=== PATIENT | male | born 1940 | race Caucasian/White ===

== ENCOUNTER → 2019-10-02 11:01 | Outpatient (BNVA) | payer MEDICARE, OTHER, SELFPAY | PROVIDERS: Family Provider Family Medicine; PCP Nurse Practitioner Family; Visit Provider Family Medicine | DX: N39.0 Urinary tract infection, site not specified (principal); E11.9 Type 2 diabetes mellitus without complications; I10 Essential (primary) hypertension | CPT/HCPCS: 36415; 83036 ==

== ENCOUNTER → 2019-12-17 12:50 | Outpatient (BNVA) | payer MEDICARE, OTHER, SELFPAY | PROVIDERS: Family Provider Family Medicine; PCP Family Medicine; Visit Provider Urology | DX: R33.9 Retention of urine, unspecified (principal); N35.913 Unspecified membranous urethral stricture, male; Z85.46 Personal history of malignant neoplasm of prostate; N39.490 Overflow incontinence; N39.0 Urinary tract infection, site not specified | CPT/HCPCS: 81001 ==

== ENCOUNTER → 2020-11-04 11:23 | Outpatient (BNVA) | payer MEDICARE, OTHER, SELFPAY | PROVIDERS: Family Provider Family Medicine; PCP Family Medicine; Visit Provider Family Medicine | DX: N39.0 Urinary tract infection, site not specified (principal); E11.9 Type 2 diabetes mellitus without complications | CPT/HCPCS: 83036 ==

== ENCOUNTER → 2020-12-16 16:27 | Outpatient (BNVA) | payer MEDICARE, OTHER, SELFPAY | PROVIDERS: Family Provider Family Medicine; PCP Family Medicine; Visit Provider Urology | DX: R33.9 Retention of urine, unspecified (principal); N35.913 Unspecified membranous urethral stricture, male; N39.0 Urinary tract infection, site not specified; Z85.46 Personal history of malignant neoplasm of prostate | CPT/HCPCS: 81003; 87086 ==

== ENCOUNTER → 2021-02-10 11:14 | Outpatient (BNVA) | payer MEDICARE, OTHER, SELFPAY | PROVIDERS: Family Provider Family Medicine; PCP Family Medicine; Visit Provider Family Medicine | DX: E11.9 Type 2 diabetes mellitus without complications (principal) | CPT/HCPCS: 83036 ==

== ENCOUNTER → 2021-05-31 09:06 | Outpatient (BNVA) | payer MEDICARE, OTHER, SELFPAY | PROVIDERS: Family Provider Family Medicine; PCP Family Medicine; Visit Provider Family Medicine | DX: E11.9 Type 2 diabetes mellitus without complications (principal) | CPT/HCPCS: 83036 ==

== ENCOUNTER → 2021-06-04 11:07 | Outpatient (BNVA) | payer MEDICARE, OTHER, SELFPAY | PROVIDERS: Family Provider Family Medicine; PCP Family Medicine; Visit Provider Surgery | DX: Z11.52 Encounter for screening for COVID-19 (principal) | CPT/HCPCS: 87635 ==

== ENCOUNTER 2021-06-09 07:39 | Day surgery (SDC) | payer MEDICARE, OTHER, SELFPAY ==
[2021-06-07 09:48] VITALS: BMI 26.9
[2021-06-09 08:38] VITALS: BP 191/77; PULSE 91; RESP 18; TEMP 36.1; O2SAT 100
[2021-06-09] MEDS: sodium chloride 0.9% 1,000 ML 30 ML IV (08:48)
--- NOTE | 2021-06-09 08:59 | ANES.PREANE2 ---
Documented by User: Miky Gutierrez Jr, CUSTOMER SUPPORT REPRESENTATIVE 06/09/21 09:05 Pre-Anesthetic Assessment Height/Weight: Height 1.78 m Weight 85.275 kg Temp Pulse Resp BP Pulse Ox 97 F L 91 18 191/77 100 06/09/21 08:38 06/09/21 08:38 06/09/21 08:38 06/09/21 08:38 06/09/21 08:38 Preop Diagnosis: diagnostic Operation Date: 06/09/21 09:00 Proposed Procedures p Colonoscopy 00217/K59.00(Not Applicable) - Cm Whitaker MD Familial anesthetic complications: none Was Beta Swathi taken within 24 hours: N/A Was Clonidine taken within 24 hours: N/A Last intake: Intake Last Liquid Date 06/08/21 Last Liquid Time 20:00 Last Solid Date 06/07/21 Last Solid Time 22:00 Last Intake: 22:00 Social No alcohol and No tobacco Exam alert, oriented x 3, clear to auscultation bilaterally and regular rate & rhythm Airway Submandibular: within normal limits Cervical ROM: within normal limits Mallampati: Class II Dentition: full Pulmonary None reported CV/HEM Hypertension None reported Hepatic None reported GI Gastroesophageal Reflux Disease (food related) Metabolic Diabetes Mellitus (Hga1c 6.7) Musc/skel Lower Back Pain and Osteoarthritis/DJD Neuropsych None reported Anesthetic Plan ASA status: 3 Anesthesia: MAC Risk of > 500 ml blood loss (7ml/kg in children): No Medications/Allergies Home Medications Medication Instructions Recorded Confirmed Last Taken Type insulin NPH isoph U-100 human 100 28 unit (0.28 mL) SUBCUT QAM #15 ml 11/04/20 06/09/21 06/08/21 Rx unit/mL (3 mL) subcutaneous pen (Novolin N Flexpen) metformin 1,000 mg tablet 1,000 mg PO DAILY #90 tab 11/04/20 06/09/21 06/07/21 Rx tamsulosin 0.4 mg capsule 0.4 mg PO BID #180 cap 11/04/20 06/09/21 06/07/21 Rx lisinopril 40 mg tablet 40 mg PO DAILY #90 tab 11/18/20 06/09/21 06/07/21 Rx docusate sodium 100 mg capsule 100 mg PO TID 12/16/20 06/09/21 06/07/21 History (Dulcolax Stool Softener (docusate)) multivitamin 1 tab PO DAILY 12/16/20 06/09/21 06/07/21 History ascorbic acid (vitamin C) 1,000 mg 1 g PO BID #180 tab 12/17/20 06/09/21 06/07/21 Rx tablet methenamine hippurate 1 gram tablet 1 g PO BID #240 tab 12/17/20 06/09/21 06/07/21 Rx glycerin (adult) (Fleet Glycerin 1 supp [place] DAILY PRN 04/21/21 06/07/21 Unknown History (Adult)) magnesium hydroxide 400 mg/5 mL 7.5 ml PO BID PRN 04/21/21 06/07/21 Unknown History oral suspension (Elder Milk of Magnesia) glyburide 5 mg tablet 10 mg PO TID #270 tab 05/10/21 06/09/21 06/08/21 Rx calcium carbonate 600 mg calcium 600 mg PO DAILY 05/24/21 06/09/21 06/07/21 History (1,500 mg) tablet (Calcium) cholecalciferol (vitamin D3) 625 50,000 unit PO DAILY cap 05/24/21 06/09/21 06/07/21 History mcg (25,000 unit) capsule lactulose 10 gram/15 mL (15 mL) 15 ml PO BID 7 Days #210 ml 05/24/21 06/09/21 06/07/21 Rx oral solution blood sugar diagnostic (OneTouch #200 ea 06/04/21 06/09/21 Unknown Rx Ultra Test) amlodipine 10 mg tablet 10 mg PO DAILY 06/09/21 06/09/21 06/07/21 History pioglitazone 45 mg tablet 45 mg PO DAILY 06/09/21 06/09/21 06/07/21 History Allergies Allergy/AdvReac Type Severity Reaction Status Date / Time amoxicillin Allergy unknown Verified 05/31/21 11:20 codeine Allergy unknown Verified 05/31/21 11:20 hydrocodone Allergy unknown Verified 05/31/21 11:20 Current Medications Generic Name Dose Route Start Last Admin Trade Name Freq PRN Reason Stop Dose Admin Sodium Chloride 1,000 mls @ 30 mls/hr 06/09/21 07:45 06/09/21 08:48 Sodium Chloride 0.9% IV 06/10/21 07:44 30 mls/hr .Q24H ROSAURA Administration PFSH Anesthesia Medical History History of prostate cancer Hypertension Incomplete bladder emptying Membranous urethral stricture Overflow incontinence Radiation proctitis Recurrent UTI Type 2 diabetes mellitus Surgical History (Updated 06/09/21 @ 10:24 by mC Whitaker MD) History of colon resection Previous back surgery Status post colonoscopy Status post colonoscopy with polypectomy (06/09/21) Family History Mother , 66 Cancer Uterine Father , 74 Cancer prostate Social History Quit status (tobacco): has quit using tobacco Year quit tobacco: 1981 Alcohol intake: never Marital status: Current occupational status: retired History of recent travel: No Data Anesthesia Cardiac Studies: No Data to Display
--- NOTE | 2021-06-09 09:06 | P.HP_ITS ---
Same Day Surgery H&P Indication for Procedure/HPI DATE OF PROCEDURE: June 09, 2021 CHIEF COMPLAINT/INDICATIONFOR SURGICAL PROCEDURE: Constipation-screening colonoscopy PREOP DIAGNOSIS: diagnostic PLANNED PROCEDURE: Operation Date: 06/09/21 09:00 Proposed Procedures p Colonoscopy 45747/K59.00(Not Applicable) - Cm Whitaker MD Medications/Allergies* Home Medications Medication Instructions Recorded Confirmed Type docusate sodium 100 mg capsule 100 mg PO TID 12/16/20 06/09/21 History (Dulcolax Stool Softener (docusate)) multivitamin 1 tab PO DAILY 12/16/20 06/09/21 History glycerin (adult) (Fleet Glycerin 1 supp [place] DAILY PRN 04/21/21 06/07/21 History (Adult)) magnesium hydroxide 400 mg/5 mL 7.5 ml PO BID PRN 04/21/21 06/07/21 History oral suspension (Elder Milk of Magnesia) calcium carbonate 600 mg calcium 600 mg PO DAILY 05/24/21 06/09/21 History (1,500 mg) tablet (Calcium) cholecalciferol (vitamin D3) 625 50,000 unit PO DAILY cap 05/24/21 06/09/21 History mcg (25,000 unit) capsule amlodipine 10 mg tablet 10 mg PO DAILY 06/09/21 06/09/21 History pioglitazone 45 mg tablet 45 mg PO DAILY 06/09/21 06/09/21 History Allergies/Adverse Reactions Allergy/AdvReac Type Severity Reaction Status Date / Time amoxicillin Allergy unknown Verified 05/31/21 11:20 codeine Allergy unknown Verified 05/31/21 11:20 hydrocodone Allergy unknown Verified 05/31/21 11:20 Current Medications: Generic Name Dose Route Start Last Admin Trade Name Freq PRN Reason Stop Dose Admin Sodium Chloride 1,000 mls @ 30 mls/hr 06/09/21 07:45 06/09/21 08:48 Sodium Chloride 0.9% IV 06/10/21 07:44 30 mls/hr .Q24H ROSAURA Administration Pertinent History/Comorbid Conditions* Medical History (Updated 05/24/21 @ 09:21 by Cm Whitaker MD) History of prostate cancer Hypertension Incomplete bladder emptying Membranous urethral stricture Overflow incontinence Radiation proctitis Recurrent UTI Type 2 diabetes mellitus Surgical History (Updated 05/24/21 @ 09:21 by Cm Whitaker MD) History of colon resection Previous back surgery Status post colonoscopy Family History (Updated 11/27/19 @ 16:26 by Kim Lemus RN) Father, 74 Mother, 66 Cancer Mother Uterine Father prostate Social History Quit status (tobacco): has quit using tobacco Year quit tobacco: 1981 Alcohol intake: never Marital status: Current occupational status: retired History of recent travel: No Pertinent Exam Findings alert, oriented x 3 and regular rate & rhythm Recommendations Surgery/Procedure today Coding Level of Care Code 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
[2021-06-09] MEDS: labetalol 5 mg/mL SDV 20mL 10 MG IVP (09:12)
[2021-06-09 10:23] VITALS: BP 162/72; PULSE 75; RESP 16; TEMP 36.3; O2SAT 98
--- NOTE | 2021-06-09 10:32 | ANE.PACU2 ---
Documented by User: Harshal De Dios CRNA 06/09/21 10:32 Inpatient post-anesthesia follow up: Airway intact: Yes Vital signs: Temperature 97.4 F Pulse Rate 75 Respiratory Rate 16 Blood Pressure 162/72 Pulse Oximetry 98 Oxygen Delivery Me thod Room Air Oxygen Flow Rate Fraction of Inspir ed Oxygen Hydration adequate: Yes Nausea and vomiting: No Pain level: 1 Mental status: Baseline
[2021-06-09 10:34] VITALS: BP 188/77; PULSE 78; RESP 18; O2SAT 94
== END 2021-06-09 10:47 | disposition home or self-care (01) ==
PROVIDERS: PCP Family Medicine; Visit Provider Surgery
PROC: 0DJD8ZZ Inspection of Lower Intestinal Tract, Via Natural or Artificial Opening Endoscopic (ICD-10-PCS; CPT 45378; principal; 2021-06-09 09:00)
DX: K59.00 Constipation, unspecified (principal); K57.30 Diverticulosis of large intestine without perforation or abscess without bleeding; K62.4 Stenosis of anus and rectum; D12.5 Benign neoplasm of sigmoid colon; D12.3 Benign neoplasm of transverse colon; I10 Essential (primary) hypertension; K21.9 Gastro-esophageal reflux disease without esophagitis; E11.9 Type 2 diabetes mellitus without complications; M19.90 Unspecified osteoarthritis, unspecified site; Z79.4 Long term (current) use of insulin; Z79.84 Long term (current) use of oral hypoglycemic drugs; Z85.46 Personal history of malignant neoplasm of prostate; Z90.49 Acquired absence of other specified parts of digestive tract; Z87.891 Personal history of nicotine dependence
CPT/HCPCS: 45381; 45385; 88305; J2704; J3490; J7030

== ENCOUNTER 2021-06-25 11:32 | Outpatient (CLI) | payer MEDICARE, OTHER, SELFPAY ==
[2021-06-25 13:14] LABS: Blood Urea Nitrogen 25 mg/dL (8-23)
[2021-06-25] MEDS: iohexol 300 mg/mL 50 mL Btl PO (13:17)
[2021-06-25] MEDS: iohexol 300 mg/mL 100 mL Btl IV (13:17)
--- NOTE | 2021-06-25 13:30 | CT_ITS ---
WS: [id number] CT ABDOMEN PELVIS TECHNIQUE: Contrast-enhanced CT of the abdomen and pelvis with coronal and sagittal reformatted image s. CLINICAL INFORMATION: K56.699 - Other intestinal obstruction unspecified as to ... COMPARISON: CT DLP: 1286.[address] scans at [facility] use at least one of these dose optimization techniques: automated e xposure control; mA and/or kV adjustment per patient size (includes targeted exams where dose is matc hed to clinical indication); or iterative reconstruction. FINDINGS: Noncontrast liver is normal. Normal spleen. Moderate esophageal hiatal hernia progressed since 2011. Lung bases are well aerated. Slight atelectasis in the lung bases. Fatty atrophy of the pancreas. Mino ateral adrenal nodules likely adenomas measuring 2.1 cm LEFT and 1.5 cm RIGHT. These have increased i n size compared to 2011. Normal renal parenchymal enhancement. Mild bilateral renal cortical atrophy. No hydronephrosis in eit her kidney. Normal caliber abdominal aorta. Aortic calcification. Enlarged heterogeneously enhancing prostate measuring 5.1 CM. Recommend correlation PSA. Mild bladder wall thickening likely due to blad justin outlet obstruction. No evidence of high-grade small or large bowel obstruction. Patulous dilated RIGHT colon with constip ation. Mild wall thickening. Small amount of fluid within the RIGHT pericolic gutter. Transition to n ormal-caliber bowel at the hepatic flexure. Fecalization of the terminal ileum. Mild thickening of th e terminal ileum with a small amount of associated fluid. Mild circumferential thickening of the distal sigmoid colon and rectum. Recommend correlation for pro ctitis. Small fat-containing umbilical hernia. Hypertrophic changes lumbar spine. Stable sclerotic foci invol ving the LEFT ilium, and RIGHT acetabulum. CT/CT abdomen pelvis w con* [id number] IMPRESSION: 1. Mild diffuse circumferential thickening of the distal most sigmoid colon an d rectum compatible with proctitis. Recommend correlation for radiation proctit is considering prostate cancer history. 2. Enlarged prostate measuring 5.1 CM. Recommend correlation PSA. Evidence of mild bladder outlet obstruction. 3. Patulous RIGHT colon with wall thickening and mild surrounding induration. Small amount of fluid in RIGHT pericolic gutter. Recommend correlation for mild colitis. Some this may be due to recent colonoscopy changes. 4. Caliber change at the hepatic flexure with normal caliber transverse colon. 5. Fecalization of the terminal ileum. 6. Moderate esophageal hiatal hernia progressed compared to 2011. 7. Bilateral adrenal nodules likely adenomas largest in the LEFT measuring 2.1 cm increased in size since 2011
== END 2021-06-25 11:33 | disposition home or self-care (01) ==
LOC: RAD 11:34
PROVIDERS: PCP Family Medicine; Visit Provider Surgery
DX: K56.699 Other intestinal obstruction unspecified as to partial versus complete obstruction (principal); K62.4 Stenosis of anus and rectum; N40.0 Benign prostatic hyperplasia without lower urinary tract symptoms; K44.9 Diaphragmatic hernia without obstruction or gangrene; Z85.46 Personal history of malignant neoplasm of prostate
CPT/HCPCS: 74177; 82565; 84520

== ENCOUNTER → 2021-08-24 11:04 | Outpatient (BNVA) | payer MEDICARE, OTHER, SELFPAY | PROVIDERS: PCP Family Medicine; Visit Provider Surgery | DX: K63.5 Polyp of colon (principal); K62.4 Stenosis of anus and rectum | CPT/HCPCS: 99214 ==

== ENCOUNTER 2021-10-13 05:45 | Day surgery (SDC) | payer MEDICARE, OTHER, SELFPAY ==
[2021-10-08 11:53] VITALS: BMI 25.1
[2021-10-13] VITALS (13 sets, daily range): BP systolic 170–217; BP diastolic 51–88; PULSE 67–78; RESP 16–18; TEMP 36.6; O2SAT 95–100
[2021-10-13] MEDS: sodium chloride 0.9% 1,000 ML 30 ML IV (06:29)
--- NOTE | 2021-10-13 06:40 | P.ANESASSM_ITS ---
Documented by User: Constanza Horta CRNA 10/13/21 06:44 Pre-Anesthetic Assessment Height/Weight: Height 1.8 m Weight 81.647 kg Temp Pulse Resp BP Pulse Ox 98 F 77 18 178/52 98 10/13/21 06:17 10/13/21 06:17 10/13/21 06:17 10/13/21 06:17 10/13/21 06:17 Preop Diagnosis: diagnostic Operation Date: 10/13/21 07:00 Proposed Procedures p Colonoscopy 88501/k63.5(Not Applicable) - Cm Whitaker MD Familial anesthetic complications: none Was Beta Swathi taken within 24 hours: N/A Last intake: Intake Last Liquid Date 10/12/21 Last Liquid Time 21:00 Last Solid Date 10/11/21 Last Solid Time 00:00 Social No alcohol and No tobacco Airway Submandibular: within normal limits Cervical ROM: within normal limits Mallampati: Class II Dentition: full Pulmonary None reported CV/HEM Hypertension None reported Hepatic None reported GI None reported Metabolic Diabetes Mellitus [facility] [place] [place] None reported Neuropsych 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) and None reported Anesthetic Plan ASA status: 3 Anesthesia: MAC Medications/Allergies Home Medications Medication Instructions Recorded Confirmed Last Taken Type metformin 1,000 mg tablet 1,000 mg PO DAILY #90 tab 11/04/20 10/13/21 10/12/21 Rx tamsulosin 0.4 mg capsule 0.4 mg PO BID #180 cap 11/04/20 10/13/21 10/12/21 Rx lisinopril 40 mg tablet 40 mg PO DAILY #90 tab 11/18/20 10/13/21 10/12/21 Rx docusate sodium 100 mg capsule 100 mg PO TID 12/16/20 10/13/21 10/12/21 History (Dulcolax Stool Softener (docusate)) multivitamin 1 tab PO DAILY 12/16/20 10/13/21 10/12/21 History ascorbic acid (vitamin C) 1,000 mg 1 g PO BID #180 tab 12/17/20 10/13/21 10/12/21 Rx tablet methenamine hippurate 1 gram tablet 1 g PO BID #240 tab 12/17/20 10/13/21 10/12/21 Rx glycerin (adult) (Fleet Glycerin 1 supp [place] DAILY PRN 04/21/21 10/13/21 Unknown History (Adult)) magnesium hydroxide 400 mg/5 mL 7.5 ml PO BID PRN 04/21/21 10/13/21 Unknown History oral suspension (Elder Milk of Magnesia) glyburide 5 mg tablet 10 mg PO TID #270 tab 05/10/21 10/13/21 10/12/21 Rx calcium carbonate 600 mg calcium 600 mg PO DAILY 05/24/21 10/13/21 10/12/21 History (1,500 mg) tablet (Calcium) cholecalciferol (vitamin D3) 625 50,000 unit PO DAILY cap 05/24/21 10/13/21 10/12/21 History mcg (25,000 unit) capsule blood sugar diagnostic (OneTouch #200 ea 06/04/21 10/13/21 Unknown Rx Ultra Test) amlodipine 10 mg tablet 10 mg PO DAILY 06/09/21 10/13/21 10/12/21 History pioglitazone 45 mg tablet 45 mg PO DAILY 06/09/21 10/13/21 10/12/21 History insulin NPH isoph U-100 human 100 28 unit (0.28 mL) SUBCUT QAM #30 ml 08/02/21 10/13/21 10/12/21 Rx unit/mL (3 mL) subcutaneous pen (Humulin N NPH U-100 Insulin KwikPen) Allergies Allergy/AdvReac Type Severity Reaction Status Date / Time amoxicillin Allergy unknown Verified 10/08/21 11:51 codeine Allergy unknown Verified 10/08/21 11:51 hydrocodone Allergy unknown Verified 10/08/21 11:51 Current Medications Generic Name Dose Route Start Last Admin Trade Name Freq PRN Reason Stop Dose Admin Sodium Chloride 1,000 mls @ 30 mls/hr 10/13/21 06:15 10/13/21 06:29 Sodium Chloride 0.9% IV 10/14/21 06:14 30 mls/hr .Q24H ROSAURA Administration PFSH Anesthesia Medical History Colon polyp History of prostate cancer Hypertension Incomplete bladder emptying Membranous urethral stricture Overflow incontinence Radiation proctitis Recurrent UTI Type 2 diabetes mellitus Surgical History History of colon resection Previous back surgery Status post colonoscopy Status post colonoscopy with polypectomy (06/09/21) Family History Mother , 66 Cancer Uterine Father , 74 Cancer prostate Social History Smoking and tobacco status: former smoker Quit status (tobacco): has quit using tobacco Year quit tobacco: 1981 Alcohol intake: never Marital status: Current occupational status: retired History of recent travel: No Data Anesthesia Cardiac Studies: No Data to Display
--- NOTE | 2021-10-13 07:00 | P.HP_ITS ---
Same Day Surgery H&P Indication for Procedure/HPI DATE OF PROCEDURE: October 13, 2021 CHIEF COMPLAINT/INDICATIONFOR SURGICAL PROCEDURE: colonoscopy PREOP DIAGNOSIS: diagnostic PLANNED PROCEDURE: Operation Date: 10/13/21 07:00 Proposed Procedures p Colonoscopy 02762/k63.5(Not Applicable) - Cm Whitaker MD Medications/Allergies* Home Medications Medication Instructions Recorded Confirmed Type docusate sodium 100 mg capsule 100 mg PO TID 12/16/20 10/13/21 History (Dulcolax Stool Softener (docusate)) multivitamin 1 tab PO DAILY 12/16/20 10/13/21 History glycerin (adult) (Fleet Glycerin 1 supp [place] DAILY PRN 04/21/21 10/13/21 History (Adult)) magnesium hydroxide 400 mg/5 mL 7.5 ml PO BID PRN 04/21/21 10/13/21 History oral suspension (Elder Milk of Magnesia) calcium carbonate 600 mg calcium 600 mg PO DAILY 05/24/21 10/13/21 History (1,500 mg) tablet (Calcium) cholecalciferol (vitamin D3) 625 50,000 unit PO DAILY cap 05/24/21 10/13/21 History mcg (25,000 unit) capsule amlodipine 10 mg tablet 10 mg PO DAILY 06/09/21 10/13/21 History pioglitazone 45 mg tablet 45 mg PO DAILY 06/09/21 10/13/21 History Allergies/Adverse Reactions Allergy/AdvReac Type Severity Reaction Status Date / Time amoxicillin Allergy unknown Verified 10/08/21 11:51 codeine Allergy unknown Verified 10/08/21 11:51 hydrocodone Allergy unknown Verified 10/08/21 11:51 Current Medications: Generic Name Dose Route Start Last Admin Trade Name Freq PRN Reason Stop Dose Admin Sodium Chloride 1,000 mls @ 30 mls/hr 10/13/21 06:15 10/13/21 06:29 Sodium Chloride 0.9% IV 10/14/21 06:14 30 mls/hr .Q24H ROSAURA Administration Pertinent History/Comorbid Conditions* Medical History (Updated 06/24/21 @ 10:13 by Cm Whitaker MD) Colon polyp History of prostate cancer Hypertension Incomplete bladder emptying Membranous urethral stricture Overflow incontinence Radiation proctitis Recurrent UTI Type 2 diabetes mellitus Surgical History (Updated 06/09/21 @ 10:24 by Cm Whitaker MD) History of colon resection Previous back surgery Status post colonoscopy Status post colonoscopy with polypectomy (06/09/21) Family History (Updated 11/27/19 @ 16:26 by Kim Lemus RN) Father, 74 Mother, 66 Cancer Mother Uterine Father prostate Social History Smoking and tobacco status: former smoker Quit status (tobacco): has quit using tobacco Year quit tobacco: 1981 Alcohol intake: never Marital status: Current occupational status: retired History of recent travel: No Pertinent Exam Findings alert, oriented x 3 and regular rate & rhythm Recommendations Surgery/Procedure today Coding Level of Care Code 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
[2021-10-13] MEDS: labetalol 5 mg/mL SDV 20mL IVP ×2 (07:44→08:28)
[2021-10-13] MEDS: hyDRALAzine 20 mg/mL INJ 1 mL 10 MG IVP ×2 (08:48→09:12)
[2021-10-13] MEDS: lisinopril 20 mg Tablet 40 MG PO (09:35)
--- NOTE | 2021-10-13 10:52 | PC.NURSE ---
Kept until systolic BP reached 170 or below, per Dr. Cade's orders. Transferred to extended care.
--- NOTE | 2021-10-13 12:00 | ANE.PACU2 ---
Inpatient post-anesthesia follow up: Airway intact: Yes Vital signs: Temperature 98 F Pulse Rate 75 Respiratory Rate 17 Blood Pressure 170/51 Pulse Oximetry 98 Oxygen Delivery Me thod Room Air Oxygen Flow Rate 3 Fraction of Inspir ed Oxygen Hydration adequate: Yes Nausea and vomiting: No Pain level: 1 Mental status: Baseline Additional Comments: Patient hypertensive post op. Did not take home lisinopril/amlodipine. After labetalol 10 mg and 20 mg hydralazine had very little effect, home lisinopril dose of 40 mg PO given. BP back to pre op baseline.
== END 2021-10-13 10:48 | disposition home or self-care (01) ==
PROVIDERS: PCP Family Medicine; Visit Provider Surgery
PROC: 0DJD8ZZ Inspection of Lower Intestinal Tract, Via Natural or Artificial Opening Endoscopic (ICD-10-PCS; CPT 45378; principal; 2021-10-13 07:00)
DX: Z86.010 Personal history of colon polyps (principal); K57.30 Diverticulosis of large intestine without perforation or abscess without bleeding; I10 Essential (primary) hypertension; E11.40 Type 2 diabetes mellitus with diabetic neuropathy, unspecified; Z85.46 Personal history of malignant neoplasm of prostate; Z87.891 Personal history of nicotine dependence
CPT/HCPCS: 45380; 88305; 96374; 96375; 96376; J0360; J2704; J3490; J7030

== ENCOUNTER → 2021-10-19 08:54 | Outpatient (BNVA) | payer MEDICARE, OTHER, SELFPAY | PROVIDERS: PCP Family Medicine; Visit Provider Surgery | DX: K63.5 Polyp of colon (principal) | CPT/HCPCS: 99214 ==

== ENCOUNTER 2021-10-20 15:30 | Inpatient (IN) | payer MEDICARE, OTHER, SELFPAY ==
[2021-10-19 12:52] VITALS: BMI 24.8
[2021-10-20] VITALS (18 sets, daily range): BP systolic 143–195; BP diastolic 51–74; PULSE 57–79; RESP 8–18; TEMP 36.4–37.1; O2SAT 93–100
[2021-10-20] MEDS: sodium chloride 0.9% 1,000 ML 30 ML IV (10:30)
[2021-10-20 10:34] LABS: Glucose Point of Care 140 mg/dL (70-110)
--- NOTE | 2021-10-20 11:09 | P.HP_ITS ---
Same Day Surgery H&P Indication for Procedure/HPI DATE OF PROCEDURE: October 20, 2021 CHIEF COMPLAINT/INDICATIONFOR SURGICAL PROCEDURE: Colon resection PREOP DIAGNOSIS: Hepatic flexure mass PLANNED PROCEDURE: Operation Date: 10/20/21 11:00 Proposed Procedures p Lap possible open R hemicolectomy 97108,K62.4(Right) - Cm Whitaker MD Medications/Allergies* Home Medications Medication Instructions Recorded Confirmed Type docusate sodium 100 mg capsule 100 mg PO TID 12/16/20 10/20/21 History (Dulcolax Stool Softener (docusate)) multivitamin 1 tab PO DAILY 12/16/20 10/19/21 History glycerin (adult) (Fleet Glycerin 1 supp [place] DAILY PRN 04/21/21 10/20/21 History (Adult)) magnesium hydroxide 400 mg/5 mL 7.5 ml PO BID PRN 04/21/21 10/19/21 History oral suspension (Elder Milk of Magnesia) calcium carbonate 600 mg calcium 600 mg PO DAILY 05/24/21 10/20/21 History (1,500 mg) tablet (Calcium) cholecalciferol (vitamin D3) 625 50,000 unit PO DAILY cap 05/24/21 10/19/21 History mcg (25,000 unit) capsule amlodipine 10 mg tablet 10 mg PO DAILY 06/09/21 10/20/21 History pioglitazone 45 mg tablet 45 mg PO DAILY 06/09/21 10/20/21 History Allergies/Adverse Reactions Allergy/AdvReac Type Severity Reaction Status Date / Time amoxicillin Allergy unknown Verified 10/19/21 12:46 codeine Allergy unknown Verified 10/19/21 12:46 hydrocodone Allergy unknown Verified 10/19/21 12:46 Pertinent History/Comorbid Conditions* Medical History (Updated 06/24/21 @ 10:13 by Cm Whitaker MD) Colon polyp History of prostate cancer Hypertension Incomplete bladder emptying Membranous urethral stricture Overflow incontinence Radiation proctitis Recurrent UTI Type 2 diabetes mellitus Surgical History (Updated 06/09/21 @ 10:24 by Cm Whitaker MD) History of colon resection Previous back surgery Status post colonoscopy Status post colonoscopy with polypectomy (06/09/21) Family History (Updated 11/27/19 @ 16:26 by Kim Lemus RN) Father, 74 Mother, 66 Cancer Mother Uterine Father prostate Social History Smoking and tobacco status: former smoker Quit status (tobacco): has quit using tobacco Year quit tobacco: 1981 Alcohol intake: never Marital status: Current occupational status: retired History of recent travel: No Pertinent Exam Findings alert, oriented x 3 and regular rate & rhythm Recommendations Surgery/Procedure today Coding Level of Care Code 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
--- NOTE | 2021-10-20 11:25 | ANES.PREANE2 ---
Pre-Anesthetic Assessment Height/Weight: Height 1.8 m Weight 80.739 kg Temp Pulse Resp BP Pulse Ox 98.3 F 79 18 195/72 100 10/20/21 10:07 10/20/21 10:07 10/20/21 10:07 10/20/21 10:07 10/20/21 10:07 Preop Diagnosis: Hepatic flexure mass Operation Date: 10/20/21 11:00 Proposed Procedures p Lap possible open R hemicolectomy 63004,K62.4(Right) - Cm Whitaker MD Last intake: Intake Last Liquid Date 10/19/21 Last Liquid Time 22:00 Last Solid Date 10/18/21 Last Solid Time 17:00 Social quit smoking in 1981 Exam CTA b/l; RRR Airway Submandibular: within normal limits Cervical ROM: within normal limits Mallampati: Class II CV/HEM Hypertension Prostate CA Metabolic Diabetes Mellitus Anesthetic Plan ASA status: 3 Anesthesia: General Medications/Allergies Home Medications Medication Instructions Recorded Confirmed Last Taken Type metformin 1,000 mg tablet 1,000 mg PO DAILY #90 tab 11/04/20 10/20/21 10/18/21 Rx tamsulosin 0.4 mg capsule 0.4 mg PO BID #180 cap 11/04/20 10/19/21 10/12/21 Rx lisinopril 40 mg tablet 40 mg PO DAILY #90 tab 11/18/20 10/20/21 10/18/21 Rx docusate sodium 100 mg capsule 100 mg PO TID 12/16/20 10/20/21 10/18/21 History (Dulcolax Stool Softener (docusate)) multivitamin 1 tab PO DAILY 12/16/20 10/19/21 10/12/21 History ascorbic acid (vitamin C) 1,000 mg 1 g PO BID #180 tab 12/17/20 10/20/21 10/12/21 Rx tablet methenamine hippurate 1 gram tablet 1 g PO BID #240 tab 12/17/20 10/20/21 10/18/21 Rx glycerin (adult) (Fleet Glycerin 1 supp [place] DAILY PRN 04/21/21 10/20/21 Unknown History (Adult)) magnesium hydroxide 400 mg/5 mL 7.5 ml PO BID PRN 04/21/21 10/19/21 Unknown History oral suspension (Elder Milk of Magnesia) glyburide 5 mg tablet 10 mg PO TID #270 tab 05/10/21 10/20/21 10/19/21 Rx calcium carbonate 600 mg calcium 600 mg PO DAILY 05/24/21 10/20/21 10/12/21 History (1,500 mg) tablet (Calcium) cholecalciferol (vitamin D3) 625 50,000 unit PO DAILY cap 05/24/21 10/19/21 10/12/21 History mcg (25,000 unit) capsule blood sugar diagnostic (OneTouch #200 ea 06/04/21 10/19/21 Unknown Rx Ultra Test) amlodipine 10 mg tablet 10 mg PO DAILY 06/09/21 10/20/21 10/20/21 History pioglitazone 45 mg tablet 45 mg PO DAILY 06/09/21 10/20/21 10/18/21 History insulin NPH isoph U-100 human 100 28 unit (0.28 mL) SUBCUT QAM #30 ml 08/02/21 10/20/21 10/18/21 Rx unit/mL (3 mL) subcutaneous pen (Humulin N NPH U-100 Insulin KwikPen) erythromycin 500 mg tablet 500 mg PO TID 1 Days #3 tab 10/13/21 10/20/21 10/19/21 Rx neomycin 500 mg tablet 1 g PO TID 1 Days #6 tab 10/13/21 10/19/21 Unknown Rx Allergies Allergy/AdvReac Type Severity Reaction Status Date / Time amoxicillin Allergy unknown Verified 10/19/21 12:46 codeine Allergy unknown Verified 10/19/21 12:46 hydrocodone Allergy unknown Verified 10/19/21 12:46 Current Medications Generic Name Dose Route Start Last Admin Trade Name Freq PRN Reason Stop Dose Admin Sodium Chloride 1,000 mls @ 30 mls/hr 10/20/21 10:15 10/20/21 10:30 Sodium Chloride 0.9% IV 10/21/21 10:14 30 mls/hr .Q24H ROSAURA Administration PFSH Anesthesia Medical History Colon polyp History of prostate cancer Hypertension Incomplete bladder emptying Membranous urethral stricture Overflow incontinence Radiation proctitis Recurrent UTI Type 2 diabetes mellitus Surgical History History of colon resection Previous back surgery Status post colonoscopy Status post colonoscopy with polypectomy (06/09/21) Family History Mother , 66 Cancer Uterine Father , 74 Cancer prostate Social History Smoking and tobacco status: former smoker Quit status (tobacco): has quit using tobacco Year quit tobacco: 1981 Alcohol intake: never Marital status: Current occupational status: retired History of recent travel: No Data Anesthesia Cardiac Studies: No Data to Display
[2021-10-20] MEDS: ciprofloxacin 400 MG/200 ML PREMIX 200 MG IV ×2 (12:48→18:23)
[2021-10-20] MEDS: metroNIDAZOLE IV 500 MG/100 ML PREMIX 100 MG IV ×3 (12:48→23:16)
[2021-10-20] MEDS: lidocaine 2% Urojet 20 mL TOPICAL (13:00)
--- NOTE | 2021-10-20 13:18 | P.CONIM_ITS ---
Providers/Reason For Consult Consulting Physician/Specialty*: De La Garza/urology Reason for Consult*: Inability to pass Rosas catheter prior to surgery Requesting Physician: Dr. Whitaker Attending Physician: Cm Whitaker MD Primary Care Provider: Aren Mosquera DO History of Present Illness History of Present Illness PROBLEMS FOLLOWING: PROSTATE CANCER Diagnosed 2007 with PSA = 11.1 and normal BENEDICTO. Pathology: 3+3/3+4 in 7 of 12 cores. Treatment: LHRH agonist completed February 2009 + XBRT completed August 2008. Followup: combination of radiation proctitis, anal stenosis, and incontinence. ?Cannot perform BENEDICTO due to anal stenosis. No evidence of recurrence. PSA 0.13 June 2018 Elected to hold on PRACTICE SPECIALIST surveillance December 2019. URINARY INCONTINENCE/INCREASED PVR Severe LUTS following radiation therapy for prostate cancer and characterized by urgency, urgency incontinence, nocturnal enuresis. ?Has declined further workup. ?Condom catheter helps at night. ?Pelvic floor exercises/bladder drill helpful. Treatment: Flomax twice a day and finasteride due to persistently elevated PVR (242 mL on 07/04/2012). RECURRENT UTI Complicated by increased PVR/SCIC. 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 ?Placed in SCIC. Jorge Nolasco is a 81 year old male well-known to me for the above problems. Last office visit was December 2020. He had been off of SCIC for stricture patency maintenance for over 1 year and denied any significant change in his voiding. Had been maintained with METHENAMINE HIPPURATE plus vitamin C for recurrent UTI suppression and urine culture despite positive nitrites was negative. Was scheduled for a follow-up in 1 year with flow rate PVR AUA symptom score Since then he was diagnosed with colon cancer and is admitted today for partial colectomy by Dr. Whitaker. Preoperatively Rosas catheter cannot be placed and I was consulted. Procedure: Urethral dilation, difficult Rosas catheter placement First attempt was with a 12 [place] coud? catheter which was unsuccessful. The urethra was then dilated with catheter sounds from 10 [place] to 16 [place] each with passage into the bladder with good drainage of urine. 2% lidocaine jelly was utilized to facilitate passage. After this dilation a 12 [place] coud? catheter was passed with good drainage. Balloon inflated without difficulty. He was turned back over to staff for continuation of scheduled procedure. Review of Systems General: Reports: ROS unobtainable due to endotracheal tube Medications/Allergies Home Medications Medication Instructions Recorded Confirmed Last Taken Type metformin 1,000 mg tablet 1,000 mg PO DAILY #90 tab 11/04/20 10/20/21 10/18/21 Rx tamsulosin 0.4 mg capsule 0.4 mg PO BID #180 cap 11/04/20 10/19/21 10/12/21 Rx lisinopril 40 mg tablet 40 mg PO DAILY #90 tab 11/18/20 10/20/21 10/18/21 Rx docusate sodium 100 mg capsule 100 mg PO TID 12/16/20 10/20/21 10/18/21 History (Dulcolax Stool Softener (docusate)) multivitamin 1 tab PO DAILY 12/16/20 10/19/21 10/12/21 History ascorbic acid (vitamin C) 1,000 mg 1 g PO BID #180 tab 12/17/20 10/20/21 10/12/21 Rx tablet methenamine hippurate 1 gram tablet 1 g PO BID #240 tab 12/17/20 10/20/21 10/18/21 Rx glycerin (adult) (Fleet Glycerin 1 supp [place] DAILY PRN 04/21/21 10/20/21 Unknown History (Adult)) magnesium hydroxide 400 mg/5 mL 7.5 ml PO BID PRN 04/21/21 10/19/21 Unknown History oral suspension (Elder Milk of Magnesia) glyburide 5 mg tablet 10 mg PO TID #270 tab 05/10/21 10/20/21 10/19/21 Rx calcium carbonate 600 mg calcium 600 mg PO DAILY 05/24/21 10/20/21 10/12/21 History (1,500 mg) tablet (Calcium) cholecalciferol (vitamin D3) 625 50,000 unit PO DAILY cap 05/24/21 10/19/21 10/12/21 History mcg (25,000 unit) capsule blood sugar diagnostic (OneTouch #200 ea 06/04/21 10/19/21 Unknown Rx Ultra Test) amlodipine 10 mg tablet 10 mg PO DAILY 06/09/21 10/20/21 10/20/21 History pioglitazone 45 mg tablet 45 mg PO DAILY 06/09/21 10/20/21 10/18/21 History insulin NPH isoph U-100 human 100 28 unit (0.28 mL) SUBCUT QAM #30 ml 08/02/21 10/20/21 10/18/21 Rx unit/mL (3 mL) subcutaneous pen (Humulin N NPH U-100 Insulin KwikPen) erythromycin 500 mg tablet 500 mg PO TID 1 Days #3 tab 10/13/21 10/20/21 06/0 12/03 Rx neomycin 500 mg tablet 1 g PO TID 1 Days #6 tab 10/13/21 10/19/21 Unknown Rx Allergies Allergy/AdvReac Type Severity Reaction Status Date / Time amoxicillin Allergy unknown Verified 10/19/21 12:46 codeine Allergy unknown Verified 10/19/21 12:46 hydrocodone Allergy unknown Verified 10/19/21 12:46 Current Medications Generic Name Dose Route Start Last Admin Trade Name Freq PRN Reason Stop Dose Admin Sodium Chloride 1,000 mls @ 30 mls/hr 10/20/21 10:15 10/20/21 10:30 Sodium Chloride 0.9% IV 10/21/21 10:14 30 mls/hr .Q24H ROSAURA Administration PFSH Acute PFSH: Medical History Colon polyp History of prostate cancer Hypertension Incomplete bladder emptying Membranous urethral stricture Overflow incontinence Radiation proctitis Recurrent UTI Type 2 diabetes mellitus Surgical History History of colon resection Previous back surgery Status post colonoscopy Status post colonoscopy with polypectomy (06/09/21) Family History Mother , 66 Cancer Uterine Father , 74 Cancer prostate Social History Smoking and tobacco status: former smoker Quit status (tobacco): has quit using tobacco Year quit tobacco: 1981 Alcohol intake: never Marital status: Current occupational status: retired History of recent travel: No Vitals/I&O/Wt Last Vital Signs Temp 98.3 F 10/20/21 10:07 Pulse 79 10/20/21 10:07 Resp 18 10/20/21 10:07 BP 195/72 10/20/21 10:07 Pulse Ox 100 06/08/22 10:07 Weight last 48 hrs Weight 178 lb Physical Exam Narrative: Patient is intubated on the operating room table. Genitourinary exam: Phallus is uncircumcised. His foreskin is easily retractable Meatus appears to be normal. Scrotum appears normal. No evidence of infectious problems. Lower abdomen without palpable masses. A&P Assessment and plan (1) Membranous urethral stricture: History of requiring chronic dilation with self-catheterization for stricture patency maintenance. Has not done it in a while. Stricture recurred somewhat and required dilation today in order to pass a 12 [place] coud? catheter. Catheter can be maintained as per usual protocol with no specific special instructions based on today's findings Status: Acute (2) Incomplete bladder emptying: Status: Acute Coding Level of Care Code Acute Coremaker Experimental for [facility] Jose Diagnoses Membranous urethral stricture N35.913 Incomplete bladder emptying R33.9
--- NOTE | 2021-10-20 13:33 | SUR.OPER ---
attempted to contact pt's and notify her of surgical start.
[2021-10-20 14:30] LABS: Basophils % 0.4 %; Eosinophils # 0.1 10^3/uL (0.0-0.8); Eosinophils % 1.4 %; Hematocrit 25.2 % (42.0-52.0); Hemoglobin 6.7 g/dL (11.7-16.6); Lymphocytes # 1.3 10^3/uL (0.8-4.8); Lymphocytes % 13.5 %; Mean Corpuscular HGB Conc 26.6 g/dL (30.0-36.0); Mean Corpuscular Hemoglobin 20.6 pg (28.0-34.0); Mean Corpuscular Volume 77.5 fl (80-94); Monocytes # 0.8 10^3/uL (0.2-0.9); Neutrophils # 7.55 10^3/uL (1.8-7.7); Neutrophils % 76.3 %; Nucleated Red Blood Cells % 0 %; Platelet Count 322 10^3/cmm (130-400); Red Blood Count 3.25 10^6/uL (4.1-5.3); Red Cell Distribution Width 16.6 % (12.1-15.1); White Blood Count 9.9 10^3/uL (4.0-10.0)
[2021-10-20 14:32] LABS: Carcinoembryonic Antigen 53.9 ng/mL (0.0-4.7)
[2021-10-20 14:43] LABS: Alanine Aminotransferase 10 U/L (0-41); Albumin Level 3.5 g/dL (3.5-5.2); Alkaline Phosphatase 90 IU/L (40-130); Anion Gap 14.6 (5-19); Aspartate Amino Transferase 13 U/L (0-40); Blood Urea Nitrogen 19 mg/dL (8-23); Calcium 8.6 mg/dL (8.5-10.5); Carbon Dioxide 22 mmol/L (22-29); Chloride 104 mmol/L (98-107); Globulin 2.5 g/dL (1.3-4.6); Glucose 107 mg/dL (65-115); Osmolality Calculated 285 mOsm/kg (285-295); Potassium 4.6 mmol/L (3.5-5.1); Sodium 136 mmol/L (136-145); Total Bilirubin 0.2 mg/dL (0.15-1.2)
--- NOTE | 2021-10-20 15:05 | P.OP_ITS ---
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 A Rosas catheter was placed and the abdomen was prepped and draped in a sterile manner. The Rosas catheter had to be placed by Dr. De La Garza as the OR nurse was unable to place it. Please refer to his note for further details. A 2 cm midline supraumbilical incision was made and using open Cabrera technique the peritoneal cavity was entered and an 11 mm port was placed and 15 mm of pneumoperitoneum was created. 10 mm 30? scope was introduced. 5 mm port was placed in the left upper quadrant, left lower quadrant and suprapubic area under direct visualization. The patient was placed in Trendelenburg position and steep tilt to the left placing the small bowel in the left side within the peritoneal cavity and the transverse colon was retracted superiorly. The cecum was retracted laterally and the tenting of the ileocolic pedicle was noted. The peritoneum overlying the pedicle was opened and a window created posterior to the pedicle just lateral to the third portion of the duodenum. Dissection was carried superiorly lateral to the duodenum along the avascular plane. Using LigaSure the ileocolic pedicle was divided. The avascular plane was dissected laterally towards the right paracolic gutter and superiorly towards the hepatic flexure.The transverse mesocolon was divided using LigaSure and this was continued medially. The mid colic vessels were skeletonized and divided with LigaSure. The anterior leaflet of the greater omentum was divided near the midpoint of the transverse colon to enter the lesser sac. The greater omentum was divided using LigaSure and the hepatic flexure was taken down. The disse ction was carried along the line of Toldt until the ascending colon and down to ileum to completely free it up. The mesentery of the terminal ileum was divided using LigaSure about 10 cm from the cecum. 20 CC of saline mixed with 20 cc of Exparel mixed with 20 cc of 0.25% Marcaine was infiltrated bilaterally for laparoscopic TAP block. At this point the pneumoperitoneum was released and the mobilized colon and small bowel was exteriorized through the supraumbilical incision which had been extended and a wound protector had been placed. Interrupted 4-0 Vicryl suture was placed to approximate the ileum to the transverse colon and enterotomies were created on the transverse colon and small bowel and and 75 mm blue load BENJAMÍN stapler was introduced and fired creating a [id number] stapled anastomosis. There was no bleeding noted from the staple line and enterotomies were grasped with Allis clamps and another load of 75 mm blue load BENJAMÍN stapler x 2 was fired to resect the specimen distal to the enterotomies creating a stapled [id number] ileocolic anastomosis. 4-0 Vicryl Lembert sutures were placed on the edges and the intersection of the staple line. The bowel was reintroduced into the peritoneal cavity, with the omentum covering the anastomosis. The peritoneal cavity was irrigated with 2 L of saline. All ports were removed under direct visualization and there was no bleeding noted from the port sites. The fascia at the midline incision was closed using running #1 looped PDS. The wound was irrigated with saline, and subcutaneous tissue approximated using 3-0 Vicryl suture and skin at all 4 port sites were closed with 4-0 Monocryl and Dermabond. The patient was extubated and transferred to the recovery room with a Rosas catheter in place.
[2021-10-20 16:06] LABS: Hematocrit 24.3 % (42.0-52.0); Hemoglobin 6.8 g/dL (11.7-16.6)
[2021-10-20] MEDS: sodium chlor 0.9% + KCl 20 mEq 20 MEQ/1,000 ML BAG 100 MEQ IV (16:34)
[2021-10-20] MEDS: famotidine 20 mg/2 mL INJ IVP (16:34)
[2021-10-20] MEDS: morphine 4 mg/mL SDV 1 mL 3 MG IVP (16:50)
--- NOTE | 2021-10-20 17:04 | P.CONIM_ITS ---
Providers/Reason For Consult Consulting Physician/Specialty*: Demetrice Kathleen MD / Internal Medicine Hospitalist Reason for Consult*: Medical management Post-op Requesting Physician: Dr. Whitaker Attending Physician: Cm Whitaker MD Primary Care Provider: Aren Mosquera DO History of Present Illness History of Present Illness Jorge Nolasco is a 81 year old male has a past medical history of colonic polyps, prostate cancer, hypertension, incomplete bladder emptying, membranous urethral stricture, radiation proctitis, recurrent UTI, type 2 diabetes mellitus who presented to the hospital today for a planned open right hemicolectomy for hepatic flexure mass. Surgery was uneventful. Medicine has been consulted for management of blood pressure, diabetes and postop care. Patient seen status post surgery in room 261 bed 1. He states he is doing okay and a little drowsy at this time. Patient states he is having a little bit of pain and swelling diffusely exacerbated but it feels fine. is present at bedside. He has no other complaints at this time. Review of systems is negative. Except noted in HPI. Medications/Allergies Home Medications Medication Instructions Recorded Confirmed Last Taken Type metformin 1,000 mg tablet 1,000 mg PO DAILY #90 tab 11/04/20 10/20/21 10/18/21 Rx tamsulosin 0.4 mg capsule 0.4 mg PO BID #180 cap 11/04/20 10/19/21 10/12/21 Rx lisinopril 40 mg tablet 40 mg PO DAILY #90 tab 11/18/20 10/20/21 10/18/21 Rx docusate sodium 100 mg capsule 100 mg PO TID 12/16/20 10/20/21 10/18/21 History (Dulcolax Stool Softener (docusate)) multivitamin 1 tab PO DAILY 12/16/20 10/19/21 10/12/21 History ascorbic acid (vitamin C) 1,000 mg 1 g PO BID #180 tab 12/17/20 10/20/21 10/12/21 Rx tablet methenamine hippurate 1 gram tablet 1 g PO BID #240 tab 12/17/20 10/20/21 10/18/21 Rx glycerin (adult) (Fleet Glycerin 1 supp [place] DAILY PRN 04/21/21 10/20/21 Unknown History (Adult)) magnesium hydroxide 400 mg/5 mL 7.5 ml PO BID PRN 04/21/21 10/19/21 Unknown History oral suspension (Elder Milk of Magnesia) glyburide 5 mg tablet 10 mg PO TID #270 tab 05/10/21 10/20/21 10/19/21 Rx calcium carbonate 600 mg calcium 600 mg PO DAILY 05/24/21 10/20/21 10/12/21 History (1,500 mg) tablet (Calcium) cholecalciferol (vitamin D3) 625 50,000 unit PO DAILY cap 05/24/21 10/19/21 10/12/21 History mcg (25,000 unit) capsule blood sugar diagnostic (OneTouch #200 ea 06/04/21 10/19/21 Unknown Rx Ultra Test) amlodipine 10 mg tablet 10 mg PO DAILY 06/09/21 10/20/21 10/20/21 History pioglitazone 45 mg tablet 45 mg PO DAILY 06/09/21 10/20/21 10/18/21 History insulin NPH isoph U-100 human 100 28 unit (0.28 mL) SUBCUT QAM #30 ml 08/02/21 10/20/21 10/18/21 Rx unit/mL (3 mL) subcutaneous pen (Humulin N NPH U-100 Insulin KwikPen) erythromycin 500 mg tablet 500 mg PO TID 1 Days #3 tab 10/13/21 10/20/21 10/19/21 Rx neomycin 500 mg tablet 1 g PO TID 1 Days #6 tab 10/13/21 10/19/21 Unknown Rx Allergies Allergy/AdvReac Type Severity Reaction Status Date / Time amoxicillin Allergy unknown Verified 10/19/21 12:46 codeine Allergy unknown Verified 10/19/21 12:46 hydrocodone Allergy unknown Verified 10/19/21 12:46 Current Medications Generic Name Dose Route Start Last Admin Trade Name Freq PRN Reason Stop Dose Admin Famotidine 20 mg 10/20/21 15:55 10/20/21 16:34 Famotidine 20 Mg/2 Ml Inj IVP 20 mg Q12H ROSAURA Administration Metronidazole 500 mg in 100 mls @ 100 mls/hr 10/20/21 15:55 10/20/21 16:33 Flagyl Iv IV 10/21/21 00:54 100 mls/hr Q8H ROSAURA Administration Protocol Potassium Chloride/Sodium Chloride 20 meq in 1,000 mls @ 100 mls/hr 10/20/21 15:55 10/20/21 16:34 Sodium Chlor 0.9% + Kcl 20 Meq IV 100 mls/hr .Q10H ROSUARA Administration Morphine Sulfate 3 mg 10/20/21 15:55 10/20/21 16:50 Morphine 4 Mg/Ml Sdv 1 Ml IVP 3 mg Q1H PRN Administration SEVERE PAIN PFSH Acute PFSH: Medical History (Updated 10/20/21 @ 15:04 by Cm Whitaker MD) BPH w urinary obs/LUTS Colon polyp History of prostate cancer Hypertension Incomplete bladder emptying Membranous urethral stricture Overflow incontinence Radiation proctitis Recurrent UTI Type 2 diabetes mellitus Surgical History (Updated 10/20/21 @ 15:04 by Cm Whitaker MD) Previous back surgery S/P right hemicolectomy (10/20/21) Status post colonoscopy with polypectomy (06/09/21) Family History Mother , 66 Cancer Uterine Father , 74 Cancer prostate Social History Smoking and tobacco status: former smoker Quit status (tobacco): has quit using tobacco Year quit tobacco: 1981 Alcohol intake: never Marital status: Current occupational status: retired History of recent travel: No Vitals/I&O/Wt Last Vital Signs Temp 97.7 F 10/20/21 15:35 Pulse 63 10/20/21 16:47 Resp 18 10/20/21 16:47 BP 147/51 10/20/21 15:35 Pulse Ox 94 10/20/21 16:47 10/20/21 10/20/21 10/20/21 06:59 14:59 22:59 Intake Total 300 / 300 700 / 1000 Output Total 1025 / 1025 Balance 300 / 300 -325 / -25 Weight last 48 hrs Weight 80.739 kg Physical Exam Narrative: General: Alert oriented x3, patient seen laying in bed appearing comfortable HEENT: Normocephalic, atraumatic, EOMI, breathing normally Cardio: Regular rate rhythm, normal S1-S2, Respiratory: Good bilateral air entry, no wheezes no rhonchi appreciated GI: Abdomen soft, mildly tender to palpation around incision sites, absent bowel sounds, no guarding or rigidity. Extremities:no edema, no cyanosis Urinary Catheter Management: Rosas: Cath Placed During This Visit: yes Urinary Catheter Date of Insertion: 10/20/21 Urinary Catheter Time of Insertion: 13:15 Data : 10/21/21 04:57 10/21/21 04:57 A&P Assessment and plan (1) S/P right hemicolectomy: Status: Acute (2) Hypertension: Status: Acute Qualifiers: Hypertension type: essential hypertension Qualified Code(s): I10 - Essential (primary) hypertension (3) Type 2 diabetes mellitus: Status: Acute Qualifiers: Diabetes mellitus intermediate designer insulin use: without intermediate designer use Diabetes mellitus complication status: without complication Qualified Code(s): E11.9 - Type 2 diabetes mellitus without complications (4) History of prostate cancer: Status: Acute (5) Recurrent UTI: Status: Acute (6) Incomplete bladder emptying: Status: Acute (7) Overflow incontinence: Status: Acute (8) Colon polyp: Status: Acute Plan #Hepatic flexure mass status post right hemicolectomy postop day 0 #Acute blood loss anemia secondary to surgical procedure #Diabetes mellitus type 2 #Hypertension #History of prostate cancer ? Order 2 units packed RBC. Hemoglobin after surgery 6.8. Type and cross ? Keep patient n.p.o. ? Continue on normal saline 100 cc/h ? Insulin sliding scale ? Lisinopril 40 daily ? Amlodipine 10 mg daily ? Continue ciprofloxacin and Flagyl for antibiotic coverage ? Hold home glimepiride, metformin. ? On Lantus 28 units in AM. I will hold Lantus for now and only do sliding sc prosper since patient is n.p.o. ? Recheck labs in a.m. DVT prophylaxis: Lovenox 40 daily GI prophylaxis: Famotidine 20 twice daily Consult Attestations 2 Medical Necessity Statement: Patient needs to stay in the hospital for management of postop right hemicolectomy. Defer to primary team in regards to discharge planning. 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
[2021-10-20 18:27] LABS: Glucose Point of Care 244 mg/dL (70-110)
[2021-10-20 21:17] LABS: Glucose Point of Care 266 mg/dL (70-110)
[2021-10-21] VITALS (11 sets, daily range): BP systolic 138–175; BP diastolic 51–80; PULSE 68–79; RESP 12–20; TEMP 36.6–37.1; O2SAT 93–99
[2021-10-21] MEDS: sodium chlor 0.9% + KCl 20 mEq 20 MEQ/1,000 ML BAG 100 MEQ IV ×2 (00:17→10:04)
[2021-10-21] MEDS: morphine 4 mg/mL SDV 1 mL 3 MG IVP (00:38)
[2021-10-21] MEDS: famotidine 20 mg/2 mL INJ IVP ×2 (03:22→15:50)
[2021-10-21] MEDS: ciprofloxacin 400 MG/200 ML PREMIX 200 MG IV ×2 (05:33→18:24)
[2021-10-21 05:46] LABS: Basophils # 0.1 10^3/uL (0.0-0.1); Basophils % 0.4 %; Eosinophils % 0.1 %; Hematocrit 32.3 % (42.0-52.0); Lymphocytes # 1.6 10^3/uL (0.8-4.8); Lymphocytes % 10.8 %; Mean Corpuscular HGB Conc 29.1 g/dL (30.0-36.0); Mean Corpuscular Hemoglobin 23.3 pg (28.0-34.0); Mean Platelet Volume 8.8 fL (7.4-10.4); Monocytes # 2.1 10^3/uL (0.2-0.9); Neutrophils # 11.02 10^3/uL (1.8-7.7); Neutrophils % 74.1 %; Nucleated Red Blood Cells % 0 %; Platelet Count 309 10^3/cmm (130-400); Red Blood Count 4.04 10^6/uL (4.1-5.3); Red Cell Distribution Width 17.6 % (12.1-15.1); White Blood Count 14.9 10^3/uL (4.0-10.0)
[2021-10-21 06:11] LABS: Glucose Point of Care 243 mg/dL (70-110)
[2021-10-21 06:15] LABS: Anion Gap 21.4 (5-19); Blood Urea Nitrogen 24 mg/dL (8-23); Calcium 8.2 mg/dL (8.5-10.5); Carbon Dioxide 14 mmol/L (22-29); Chloride 104 mmol/L (98-107); Glucose 234 mg/dL (65-115); Osmolality Calculated 290 mOsm/kg (285-295); Potassium 5.4 mmol/L (3.5-5.1); Sodium 134 mmol/L (136-145)
[2021-10-21 07:09] LABS: Hemoglobin 9.4 g/dL (11.7-16.6)
[2021-10-21] MEDS: lisinopril 20 mg Tablet 40 MG PO (08:21)
[2021-10-21] MEDS: tamsulosin 0.4 mg Capsule PO ×2 (08:21→17:06)
[2021-10-21] MEDS: insulin lispro 100 unit/1 mL SUBCUT ×3 (08:21→17:27)
[2021-10-21] MEDS: amlodipine 10 mg Tablet PO (08:22)
[2021-10-21] MEDS: sennosides-docusate Tablet 1 TAB PO ×2 (08:22→17:06)
[2021-10-21] MEDS: hyDRALAzine 20 mg/mL INJ 1 mL 10 MG IVP (08:23)
[2021-10-21] MEDS: acetaminophen 325 mg Tablet 650 MG PO (10:01)
[2021-10-21] MEDS: metroNIDAZOLE IV 500 MG/100 ML PREMIX 100 MG IV ×2 (10:03→17:27)
--- NOTE | 2021-10-21 10:42 | PC.CHAP ---
Pastoral Care Encounter/Spiritual Assessment Type of Contact [] Declined radio division lieutenant visit [] Patient/Family/Request visit [] Outpatient visit [] Follow-up visit [] Physician referral [] Code/Alert [] Routine visit [] Staff referral [] Actively dying [] Patient sleeping [] Family support [] [] Out of room [] Palliative care [] [] Receiving care in room [] Pre-surgical visit [] Trauma [] Long length of stay [] ICU visit [x] Other: Isolation Relational/Emotional Strength [] Patient feels connected with others/family/visitors/staff [] Distress [] Loneliness/isolation [] Abandonment Spirituality of Patient [] Person of Belen [] Attends Orthodox of their Belen [] Believes in Prayer [] Reads Bible or Baptism materials [] There are Spiritual issues to be addressed Circus Artist Interventions [] Prayer [] Active listening [] Non-anxious presence [] Spiritual/emotional support [] Crisis/trauma care [] Spiritual counseling [] Bereavement support [] Provided bereavement packet [] Provided Bible/devotional materials [] Provided toy/stuffed animal, coloring book to patient or family member [] Provided Communion [] Anointing/[place] [] Salvation [] Completed spiritual assessment [] Other: Impact on Illness or Injury [] Angry [] Fearful [] Anxious [] Often cries [] Exhaustion [] Unable to work [] Unable to attend christianity [] Unable to walk/stand [] Unable to read [] Unable to drive [] Unable to eat/drink [] Unable to sleep [] Unable to be with family [] Patient intubated [] Other: Summary Isolation Time spent with patient 5 mins
--- NOTE | 2021-10-21 11:07 | P.PN_ITS ---
Subjective Subjective: Patient denies any nausea, vomiting, flatus or BM. He received 2 units PRBC due to his hemoglobin preop being 6.8 Medications: Reviewed: Yes Vitals/I&O/Wt Last Vital Signs Temp 97.8 F 10/21/21 07:48 Pulse 79 10/21/21 10:50 Resp 16 10/21/21 10:50 BP 138/65 10/21/21 07:48 Pulse Ox 96 10/21/21 10:50 10/20/21 10/21/21 10/21/21 22:59 06:59 14:59 Intake Total 1100 / 4460 3060 / 4460 1078.333 / 1078.333 Output Total 1025 / 1525 500 / 1525 325 / 325 Balance 75 / 2935 2560 / 2935 753.333 / 753.333 Weight last 48 hrs Weight 198 lb 9.6 oz Weight 178 lb Physical Exam Narrative: Abdomen: Soft, tender, nondistended, incision clean dry and intact Urinary Catheter Management: Rosas: Cath Placed During This Visit: yes Reason for Continuing Indwelling Catheter: Other Urinary Catheter Date of Insertion: 10/20/21 Urinary Catheter Time of Insertion: 13:15 Data : 10/21/21 04:57 10/21/21 04:57 A&P Assessment and plan (1) S/P right hemicolectomy: 81-year-old male status post right hemicolectomy for hepatic flexure mass Continue IV fluids at 100 cc/h Anemia: Hemoglobin up to 9.4After 2 units PRBC Lovenox for DVT prophylaxis Pepcid for GI prophylaxis Ambulate with PT I-S Leave Rosas in for 1 more day since creatinine is up to 1.3 and BUN is 24 for monitoring of urine output. 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
[2021-10-21 11:21] LABS: Glucose Point of Care 214 mg/dL (70-110)
[2021-10-21] MEDS: enoxaparin 40 mg/0.4 mL Syringe SUBCUT (12:24)
[2021-10-21 17:12] LABS: Glucose Point of Care 286 mg/dL (70-110)
--- NOTE | 2021-10-21 18:30 | PC.NURSE ---
Patient asked to add his daughter, Fawn Haynes [phone] to his list of people who can have access to his health information. Left note for slot shift supervisor nurse.
--- NOTE | 2021-10-21 19:07 | P.PN_ITS ---
Subjective Subjective: Seen today. No acute events overnight. Creatinine bumped up to 1.3 and potassium is elevated today at 5.4. It was not reported to me and I saw it later on this afternoon. I stopped his potassium fluids and switch him to normal saline. WBC count up to 14. Patient feels well. Not passing any gas yet. Vitals/I&O/Wt Last Vital Signs Temp 97.8 F 10/21/21 07:48 Pulse 73 10/21/21 16:10 Resp 16 10/21/21 10:50 BP 162/53 10/21/21 16:10 Pulse Ox 94 10/21/21 16:10 10/21/21 10/21/21 10/21/21 06:59 14:59 22:59 Intake Total 3060 / 4460 1078.333 / 1078.333 100 / 1178.333 Output Total 500 / 1525 325 / 325 Balance 2560 / 2935 753.333 / 753.333 100 / 853.333 Weight last 48 hrs Weight 90.083 kg Physical Exam Narrative: General: Alert oriented x3, patient seen laying in bed appearing comfortable HEENT: Normocephalic, atraumatic, EOMI, breathing normally Cardio: Regular rate rhythm, normal S1-S2, Respiratory: Good bilateral air entry, no wheezes no rhonchi appreciated GI: Abdomen soft, mildly tender to palpation around incision sites, absent bowel sounds, no guarding or rigidity. Extremities:no edema, no cyanosis Urinary Catheter Management: Rosas: Cath Placed During This Visit: yes Reason for Continuing Indwelling Catheter: Other Urinary Catheter Date of Insertion: 10/20/21 Urinary Catheter Time of Insertion: 13:15 Data : 10/21/21 04:57 10/21/21 04:57 A&P Assessment and plan (1) S/P right hemicolectomy: Status: Acute (2) Hypertension: Status: Acute Qualifiers: Hypertension type: essential hypertension Qualified Code(s): I10 - Essential (primary) hypertension (3) Type 2 diabetes mellitus: Status: Acute Qualifiers: Diabetes mellitus residential insulin use: without residential use Diabetes mellitus complication status: without complication Qualified Code(s): E11.9 - Type 2 diabetes mellitus without complications (4) History of prostate cancer: Status: Acute (5) Recurrent UTI: Status: Acute (6) Incomplete bladder emptying: Status: Acute (7) Colon polyp: Status: Acute Plan #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 Order 2 units packed RBC.? Hemoglobin after surgery 6.8.? Type and cross. repeat am hb 9.4 ? Keep patient n.p.o. ? Continue on normal saline 100 cc/h.; stop fluids with potassium ? Insulin sliding scale ? Lisinopril 40 daily ? Amlodipine 10 mg daily ? Continue ciprofloxacin and Flagyl for antibiotic coverage ? Hold home glimepiride, metformin. blood pressure controlled ? lantus 10 unit bedtime, sliding scale insulin ? Recheck labs in a.m. DVT prophylaxis: Lovenox 40 daily GI prophylaxis: Famotidine 20 twice daily Attestations Medical Necessity Statement*: defer to primary team Coding Level of Care Code Acute News Operations Manager for g Fwd Diagnoses S/P right hemicolectomy Z90.49 Hypertension I10 Hypertension type: essential hypertension Type 2 diabetes mellitus E11.9 Diabetes mellitus residential insulin use: without residential use Diabetes mellitus complication status: without complication History of prostate cancer Z85.46 Recurrent UTI N39.0 Incomplete bladder emptying R33.9 Colon polyp K63.5
[2021-10-21] MEDS: calcium gluconate 0.9% NaCL 1 GM/50 ML PREMIX IV (20:09)
[2021-10-21] MEDS: sodium chloride 0.9% 1,000 ML 100 ML IV (20:09)
[2021-10-21 20:11] LABS: Anion Gap 16.5 (5-19); Blood Urea Nitrogen 23 mg/dL (8-23); Calcium 8.4 mg/dL (8.5-10.5); Carbon Dioxide 17 mmol/L (22-29); Chloride 103 mmol/L (98-107); Glucose 235 mg/dL (65-115); Osmolality Calculated 285 mOsm/kg (285-295); Potassium 4.5 mmol/L (3.5-5.1); Sodium 132 mmol/L (136-145)
[2021-10-21 20:34] LABS: Glucose Point of Care 232 mg/dL (70-110)
[2021-10-21] MEDS: insulin glargine 100 units/1 mL 10 UNIT SUBCUT (21:27)
[2021-10-22] VITALS (10 sets, daily range): BP systolic 123–192; BP diastolic 53–77; PULSE 59–87; RESP 16–20; TEMP 36.5–36.8; O2SAT 93–97
[2021-10-22 02:34] LABS: Basophils # 0.1 10^3/uL (0.0-0.1); Basophils % 0.6 %; Eosinophils # 0.1 10^3/uL (0.0-0.8); Eosinophils % 0.8 %; Hematocrit 31.7 % (42.0-52.0); Hemoglobin 9.2 g/dL (11.7-16.6); Lymphocytes # 1.3 10^3/uL (0.8-4.8); Mean Corpuscular Hemoglobin 23.1 pg (28.0-34.0); Mean Corpuscular Volume 79.4 fl (80-94); Mean Platelet Volume 8.8 fL (7.4-10.4); Monocytes # 1.4 10^3/uL (0.2-0.9); Neutrophils # 8.02 10^3/uL (1.8-7.7); Neutrophils % 73.1 %; Nucleated Red Blood Cells % 0 %; Platelet Count 265 10^3/cmm (130-400); Red Blood Count 3.99 10^6/uL (4.1-5.3); Red Cell Distribution Width 18.5 % (12.1-15.1)
[2021-10-22] MEDS: famotidine 20 mg/2 mL INJ IVP ×2 (02:53→16:34)
[2021-10-22] MEDS: metroNIDAZOLE IV 500 MG/100 ML PREMIX 100 MG IV ×3 (02:53→17:26)
[2021-10-22 02:57] LABS: Anion Gap 15.7 (5-19); Blood Urea Nitrogen 21 mg/dL (8-23); Calcium 8.3 mg/dL (8.5-10.5); Carbon Dioxide 19 mmol/L (22-29); Chloride 103 mmol/L (98-107); Glucose 220 mg/dL (65-115); Osmolality Calculated 286 mOsm/kg (285-295); Potassium 4.7 mmol/L (3.5-5.1); Sodium 133 mmol/L (136-145)
[2021-10-22] MEDS: hyDRALAzine 20 mg/mL INJ 1 mL 10 MG IVP ×2 (04:07→21:26)
[2021-10-22] MEDS: ciprofloxacin 400 MG/200 ML PREMIX 200 MG IV ×2 (05:43→18:32)
[2021-10-22] MEDS: sodium chloride 0.9% 1,000 ML 100 ML IV ×2 (05:43→09:56)
[2021-10-22 05:44] LABS: Glucose Point of Care 267 mg/dL (70-110)
[2021-10-22] MEDS: lisinopril 20 mg Tablet 40 MG PO (08:38)
[2021-10-22] MEDS: tamsulosin 0.4 mg Capsule PO ×2 (08:38→17:26)
[2021-10-22] MEDS: carvedilol 6.25 mg Tablet PO ×2 (08:38→17:26)
[2021-10-22] MEDS: insulin lispro 100 unit/1 mL SUBCUT ×3 (08:38→17:29)
[2021-10-22] MEDS: sennosides-docusate Tablet 1 TAB PO ×2 (08:39→17:26)
[2021-10-22] MEDS: amlodipine 10 mg Tablet PO (08:39)
[2021-10-22 11:57] LABS: Glucose Point of Care 316 mg/dL (70-110)
--- NOTE | 2021-10-22 12:37 | PM.PN ---
Subjective Subjective: Seen this morning. He feels more distended however is passing gas. Also has bowel sounds present. Blood pressure elevated this morning. Coreg added. Vitals/I&O/Wt Last Vital Signs Temp 97.9 F 10/22/21 11:30 Pulse 70 10/22/21 11:30 Resp 16 10/22/21 11:30 BP 162/66 10/22/21 11:30 Pulse Ox 96 10/22/21 11:30 10/21/21 10/22/21 10/22/21 22:59 06:59 14:59 Intake Total 550 / 1513.388 4163.667 / 2885.000 2655 / 2655 Output Total 850 / 1175 550 / 550 Balance 550 / 1303.333 406.667 / 9484.902 5135 / 2105 Weight last 48 hrs Weight 90.083 kg Physical Exam Narrative: General: Alert oriented x3, patient seen laying in bed appearing comfortable HEENT: Normocephalic, atraumatic, EOMI, breathing normally Cardio: Regular rate rhythm, normal S1-S2, Respiratory: Good bilateral air entry, no wheezes no rhonchi appreciated GI: Abdomen soft, mildly tender to palpation around incision sites, hypoactive bowel sounds present, increased distention compared to yesterday no guarding or rigidity. Extremities:no edema, no cyanosis Urinary Catheter Management: Rosas: Cath Placed During This Visit: yes Reason for Continuing Indwelling Catheter: Acute Urinary Retention or Obstruction Urinary Catheter Date of Insertion: 10/20/21 Urinary Catheter Time of Insertion: 13:15 Data : 10/22/21 02:00 10/22/21 02:00 A&P Assessment and plan (1) S/P right hemicolectomy: Status: Acute (2) Hypertension: Status: Acute Qualifiers: Hypertension type: essential hypertension Qualified Code(s): I10 - Essential (primary) hypertension (3) Type 2 diabetes mellitus: Status: Acute Qualifiers: Diabetes mellitus long term care administrator insulin use: without long term care administrator use Diabetes mellitus complication status: without complication Qualified Code(s): E11.9 - Type 2 diabetes mellitus without complications (4) History of prostate cancer: Status: Acute Plan #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 Order 2 units packed RBC.? Hemoglobin after surgery 6.8.? Type and cross. repeat am hb 9.4 ? Clear liquid diet. ? Continue on normal saline 100 cc/h.; stop fluids with potassium ? Insulin sliding scale ? Lisinopril 40 daily ? Amlodipine 10 mg daily ? Add Coreg 6.25 twice daily ? Continue ciprofloxacin and Flagyl for antibiotic coverage ? Hold home glimepiride, metformin. blood pressure controlled ? lantus 20 unit bedtime, sliding scale insulin ? Recheck labs in a.m. -We will continue to watch patient for now. Discussed with Dr. Whitaker over the phone as well. -Remove Rosas catheter today. DVT prophylaxis: Lovenox 40 daily GI prophylaxis: Famotidine 20 twice daily Attestations Medical Necessity Statement*: Defer to primary team. Coding Level of Care Code Acute Facialist for Chg Fwd Diagnoses S/P right hemicolectomy Z90.49 Hypertension I10 Hypertension type: essential hypertension Type 2 diabetes mellitus E11.9 Diabetes mellitus long term care administrator insulin use: without long term care administrator use Diabetes mellitus complication status: without complication History of prostate cancer Z85.46
[2021-10-22] MEDS: enoxaparin 40 mg/0.4 mL Syringe SUBCUT (12:55)
--- NOTE | 2021-10-22 14:57 | PC.NURSE ---
Removed Rosas catheter at 1432.
--- NOTE | 2021-10-22 16:09 | PM.PN ---
Subjective Subjective: Patient denies any nausea, vomiting, passed some flatus overnight, no BM. Today he feels a bit distended, otherwise afebrile Medications: Reviewed: Yes Vitals/I&O/Wt Last Vital Signs Temp 97.9 F 10/22/21 15:25 Pulse 74 10/22/21 15:25 Resp 18 10/22/21 15:25 BP 170/69 10/22/21 15:25 Pulse Ox 97 10/22/21 15:25 10/22/21 10/22/21 10/22/21 06:59 14:59 22:59 Intake Total 1256.667 / 2885.000 2895 / 2895 Output Total 850 / 1175 550 / 550 Balance 406.667 / 8074.533 2605 / 2345 Weight last 48 hrs Weight 198 lb 9.6 oz Physical Exam Narrative: Abdomen: Soft, distended, minimally tender, incision clean dry and intact, Rosas to gravity Urinary Catheter Management: Rosas: Cath Placed During This Visit: yes Reason for Continuing Indwelling Catheter: Acute Urinary Retention or Obstruction Urinary Catheter Date of Insertion: 10/20/21 Urinary Catheter Time of Insertion: 13:15 Data : 10/22/21 02:00 10/22/21 02:00 A&P Assessment and plan (1) S/P right hemicolectomy: 81-year-old male status post right hemicolectomy for hepatic flexure mass IV fluids at 50 cc/h Anemia: Hemoglobin stable after 2 units PRBC Lovenox for DVT prophylaxis Pepcid for GI prophylaxis Ambulate with PT I-S DC Rosas, creatinine improved today Appreciate medical input from hospitalist service Continue home blood pressure medications Insulin sliding scale Continue Cipro and Flagyl for 24 hours more Status: Acute Attestations Medical Necessity Statement*: Status post right hemicolectomy requiring continued inpatient stay Coding Level of Care Code Acute Senior Accountant Analyst for Chg Fwd Diagnoses S/P right hemicolectomy Z90.49
[2021-10-22 17:40] LABS: Glucose Point of Care 209 mg/dL (70-110)
[2021-10-22] MEDS: insulin glargine 100 units/1 mL 20 UNIT SUBCUT (21:27)
[2021-10-22 22:20] LABS: Glucose Point of Care 155 mg/dL (70-110)
[2021-10-23] VITALS (7 sets, daily range): BP systolic 168–194; BP diastolic 62–77; PULSE 57–84; RESP 12–18; TEMP 36.4–37; O2SAT 94–98
[2021-10-23] MEDS: metroNIDAZOLE IV 500 MG/100 ML PREMIX 100 MG IV (02:23)
[2021-10-23] MEDS: famotidine 20 mg/2 mL INJ IVP ×2 (03:34→16:26)
[2021-10-23] MEDS: hyDRALAzine 20 mg/mL INJ 1 mL 10 MG IVP ×2 (03:47→21:17)
[2021-10-23 05:15] LABS: Basophils # 0.1 10^3/uL (0.0-0.1); Basophils % 0.6 %; Eosinophils # 0.3 10^3/uL (0.0-0.8); Eosinophils % 2.5 %; Hematocrit 31.5 % (42.0-52.0); Hemoglobin 9.5 g/dL (11.7-16.6); Lymphocytes # 1.3 10^3/uL (0.8-4.8); Lymphocytes % 11.6 %; Mean Corpuscular HGB Conc 30.2 g/dL (30.0-36.0); Mean Corpuscular Hemoglobin 23.2 pg (28.0-34.0); Mean Platelet Volume 8.2 fL (7.4-10.4); Monocytes # 1.1 10^3/uL (0.2-0.9); Monocytes % 10.4 %; Neutrophils # 8.03 10^3/uL (1.8-7.7); Neutrophils % 74.3 %; Nucleated Red Blood Cells % 0 %; Platelet Count 267 10^3/cmm (130-400); Red Blood Count 4.09 10^6/uL (4.1-5.3); White Blood Count 10.8 10^3/uL (4.0-10.0)
[2021-10-23 05:40] LABS: Anion Gap 15.1 (5-19); Blood Urea Nitrogen 18 mg/dL (8-23); Calcium 8.3 mg/dL (8.5-10.5); Carbon Dioxide 19 mmol/L (22-29); Chloride 106 mmol/L (98-107); Glucose 191 mg/dL (65-115); Osmolality Calculated 289 mOsm/kg (285-295); Potassium 4.1 mmol/L (3.5-5.1); Sodium 136 mmol/L (136-145)
[2021-10-23] MEDS: ciprofloxacin 400 MG/200 ML PREMIX 200 MG IV (05:56)
--- NOTE | 2021-10-23 07:59 | P.PN_ITS ---
Subjective Subjective: Patient is feeling a lot better, no nausea vomiting. He is tolerating clears and passing a large amount of flatus but no BM yet. Overnight patient was hypertensive with systolic in the 190s Medications: Reviewed: Yes Vitals/I&O/Wt Last Vital Signs Temp 98.3 F 10/23/21 03:45 Pulse 84 10/23/21 03:45 Resp 18 10/23/21 03:45 BP 190/77 10/23/21 03:45 Pulse Ox 94 10/23/21 03:45 10/22/21 10/23/21 10/23/21 22:59 06:59 14:59 Intake Total 690 / 4730 1145 / 4730 200 / 200 Output Total 600 / 1150 Balance 90 / 3580 1145 / 3580 200 / 200 Physical Exam Narrative: Abdomen: Soft, less distended, minimally tender, incision clean dry and intact Urinary Catheter Management: Rosas: Cath Placed During This Visit: yes Reason for Continuing Indwelling Catheter: Acute Urinary Retention or Obstruction Urinary Catheter Date of Insertion: 10/20/21 Urinary Catheter Time of Insertion: 13:15 Data : 10/23/21 04:57 10/23/21 04:57 A&P Assessment and plan (1) S/P right hemicolectomy: 81-year-old male status post right hemicolectomy for hepatic flexure mass with postop ileus, otherwise afebrile and hemodynamically stable DC IV fluids, Cipro and Flagyl Anemia: Hemoglobin stable after 2 units PRBC Lovenox for DVT prophylaxis Pepcid for GI prophylaxis Ambulate with PT I-S Rosas was discontinued yesterday, good urine output Appreciate medical input from hospitalist service Continue home blood pressure medications, medications to be managed by hospitalist service Insulin sliding scale Status: Acute Attestations Medical Necessity Statement*: Postop ileus requiring 1 more night of hospital stay Coding Level of Care Code Acute American Indian Policy Specialist for g Fwd Diagnoses S/P right hemicolectomy Z90.49
[2021-10-23 08:14] LABS: Glucose Point of Care 226 mg/dL (70-110)
--- NOTE | 2021-10-23 08:22 | PC.SOCIAL ---
IMM UPDATED IMM dated, initialed and copy placed in chart and given to patient
[2021-10-23] MEDS: insulin lispro 100 unit/1 mL SUBCUT ×2 (08:46→12:21)
[2021-10-23] MEDS: carvedilol 6.25 mg Tablet PO (08:47)
[2021-10-23] MEDS: sennosides-docusate Tablet 1 TAB PO ×2 (08:47→18:02)
[2021-10-23] MEDS: amlodipine 10 mg Tablet PO (08:47)
[2021-10-23] MEDS: tamsulosin 0.4 mg Capsule PO ×2 (08:47→18:02)
[2021-10-23] MEDS: lisinopril 20 mg Tablet 40 MG PO (08:47)
[2021-10-23 11:23] LABS: Glucose Point of Care 142 mg/dL (70-110)
[2021-10-23] MEDS: enoxaparin 40 mg/0.4 mL Syringe SUBCUT (12:21)
[2021-10-23] MEDS: carvedilol 25 mg Tablet PO ×2 (12:21→18:02)
--- NOTE | 2021-10-23 12:54 | PM.PN ---
Subjective Subjective: Seen this morning. Pain is better. Now on full liquid diet. WBC down to 10.8, hemoglobin 9.5. Hypertensive overnight Vitals/I&O/Wt Last Vital Signs Temp 98.6 F 10/23/21 12:00 Pulse 66 10/23/21 12:00 Resp 12 10/23/21 12:00 BP 169/72 10/23/21 12:00 Pulse Ox 98 10/23/21 12:00 10/22/21 10/23/21 10/23/21 22:59 06:59 14:59 Intake Total 690 / 3585 1145 / 4730 200 / 200 Output Total 600 / 1150 Balance 90 / 2435 1145 / 3580 200 / 200 Physical Exam Narrative: General: Alert oriented x3, patient seen laying in bed appearing comfortable HEENT: Normocephalic, atraumatic, EOMI, breathing normally Cardio: Regular rate rhythm, normal S1-S2, Respiratory: Good bilateral air entry, no wheezes no rhonchi appreciated GI: Abdomen soft, mildly tender to palpation around incision sites, normoactive bowel sounds, less distended compared to yesterday Extremities:no edema, no cyanosis Urinary Catheter Management: Rosas: Cath Placed During This Visit: yes Reason for Continuing Indwelling Catheter: Acute Urinary Retention or Obstruction Urinary Catheter Date of Insertion: 10/20/21 Urinary Catheter Time of Insertion: 13:15 Data : 10/23/21 04:57 10/23/21 04:57 A&P Assessment and plan (1) S/P right hemicolectomy: Status: Acute (2) Hypertension: Status: Acute Qualifiers: Hypertension type: essential hypertension Qualified Code(s): I10 - Essential (primary) hypertension (3) Type 2 diabetes mellitus: Status: Acute Qualifiers: Diabetes mellitus mcc insulin use: without mcc use Diabetes mellitus complication status: without complication Qualified Code(s): E11.9 - Type 2 diabetes mellitus without complications (4) History of prostate cancer: Status: Acute (5) Recurrent UTI: Status: Acute Plan #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 Order 2 units packed RBC.? Hemoglobin after surgery 6.8.? Type and cross. repeat am hb 9.4. Hemoglobin stable at 9.5. ? Clear liquid diet. ? Continue on normal saline 100 cc/h.; stop fluids with potassium ? Insulin sliding scale ? Lisinopril 40 daily ? Amlodipine 10 mg daily ? Switch to Coreg 25 twice daily ? Continue ciprofloxacin and Flagyl for antibiotic coverage ? Hold home glimepiride, metformin. blood pressure controlled ? Put on home dose lantus 28 unit bedtime now that diet has been advanced, sliding scale insulin ? Recheck labs in a.m. -We will continue to watch patient for now.? DVT prophylaxis: Lovenox 40 daily GI prophylaxis: Famotidine 20 twice daily Attestations Medical Necessity Statement*: blood pressure still uncontrolled. further med changes made today. Coding Level of Care Code Acute Client Technologies Analyst for g Fwd Diagnoses S/P right hemicolectomy Z90.49 Hypertension I10 Hypertension type: essential hypertension Type 2 diabetes mellitus E11.9 Diabetes mellitus mcc insulin use: without filler leaf cutter long use Diabetes mellitus complication status: without complication History of prostate cancer Z85.46 Recurrent UTI N39.0
[2021-10-23 18:00] LABS: Glucose Point of Care 119 mg/dL (70-110)
[2021-10-23 20:57] LABS: Glucose Point of Care 184 mg/dL (70-110)
[2021-10-24 04:00] VITALS: BP 190/77; PULSE 85; RESP 18; TEMP 36.8; O2SAT 95
[2021-10-24] MEDS: famotidine 20 mg/2 mL INJ IVP ×2 (04:55→15:43)
[2021-10-24 06:47] LABS: Glucose Point of Care 167 mg/dL (70-110)
[2021-10-24] MEDS: insulin glargine 100 units/1 mL 28 UNIT SUBCUT (07:57)
[2021-10-24] MEDS: insulin lispro 100 unit/1 mL SUBCUT ×3 (07:58→17:56)
[2021-10-24 08:00] VITALS: BP 181/80; PULSE 70; RESP 16; TEMP 36.4; O2SAT 97
--- NOTE | 2021-10-24 08:01 | PM.PN ---
Subjective Subjective: Patient denies any significant abdominal pain, no nausea or vomiting, tolerating full liquid diet, passing large amount of flatus but no BM. He still continues to be hypertensive on 3 medications Medications: Reviewed: Yes Vitals/I&O/Wt Last Vital Signs Temp 98.2 F 10/24/21 04:00 Pulse 85 10/24/21 04:00 Resp 18 10/24/21 04:00 BP 190/77 10/24/21 04:00 Pulse Ox 95 10/24/21 04:00 10/23/21 10/24/21 10/24/21 22:59 06:59 14:59 Intake Total 240 / 440 Output Total 250 / 250 Balance 240 / 190 -250 / 190 Physical Exam Narrative: Abdomen: Soft, minimally distended, mildly tender, incision clean dry intact Urinary Catheter Management: Rosas: Cath Placed During This Visit: yes Reason for Continuing Indwelling Catheter: Acute Urinary Retention or Obstruction Urinary Catheter Date of Insertion: 10/20/21 Urinary Catheter Time of Insertion: 13:15 Data : 10/23/21 04:57 10/23/21 04:57 A&P Assessment and plan (1) S/P right hemicolectomy: 81-year-old male status post right hemicolectomy for hepatic flexure mass with postop ileus, otherwise afebrile and hemodynamically stable Anemia: Resolved Lovenox for DVT prophylaxis Pepcid for GI prophylaxis Ambulate with PT I-S Appreciate medical input from hospitalist service Continue home blood pressure medications, medications to be managed by hospitalist service Insulin sliding scale From surgical standpoint patient is ready to go home but he continues to be hypertensive on 3 medications and therefore we will keep him for 1 more day Status: Acute Attestations Medical Necessity Statement*: Hypertension, postoperative requiring 1 more night of inpatient stay Coding Level of Care Code Acute Jewelry Designer for g Fwd Diagnoses S/P right hemicolectomy Z90.49
[2021-10-24 08:27] LABS: Basophils # 0.1 10^3/uL (0.0-0.1); Basophils % 0.8 %; Eosinophils # 0.4 10^3/uL (0.0-0.8); Eosinophils % 4.2 %; Hematocrit 36.5 % (42.0-52.0); Hemoglobin 10.6 g/dL (11.7-16.6); Lymphocytes # 1.4 10^3/uL (0.8-4.8); Lymphocytes % 13.7 %; Mean Corpuscular Hemoglobin 23.1 pg (28.0-34.0); Mean Corpuscular Volume 79.7 fl (80-94); Mean Platelet Volume 8.5 fL (7.4-10.4); Monocytes # 1.1 10^3/uL (0.2-0.9); Monocytes % 10.7 %; Neutrophils # 6.98 10^3/uL (1.8-7.7); Neutrophils % 70.1 %; Nucleated Red Blood Cells % 0 %; Platelet Count 315 10^3/cmm (130-400); Red Blood Count 4.58 10^6/uL (4.1-5.3); Red Cell Distribution Width 19.8 % (12.1-15.1)
[2021-10-24 08:50] LABS: Anion Gap 15.2 (5-19); Blood Urea Nitrogen 16 mg/dL (8-23); Calcium 8.6 mg/dL (8.5-10.5); Carbon Dioxide 20 mmol/L (22-29); Chloride 105 mmol/L (98-107); Glucose 202 mg/dL (65-115); Osmolality Calculated 289 mOsm/kg (285-295); Potassium 4.2 mmol/L (3.5-5.1); Sodium 136 mmol/L (136-145)
[2021-10-24] MEDS: lisinopril 20 mg Tablet 40 MG PO (09:45)
[2021-10-24] MEDS: amlodipine 10 mg Tablet PO (09:45)
[2021-10-24] MEDS: carvedilol 25 mg Tablet PO ×2 (09:46→17:56)
[2021-10-24] MEDS: sennosides-docusate Tablet 1 TAB PO ×2 (09:46→17:56)
[2021-10-24] MEDS: tamsulosin 0.4 mg Capsule PO ×2 (09:46→17:56)
[2021-10-24 09:51] VITALS: BP 184/66
[2021-10-24] MEDS: cloNIDine 0.1 mg/24 hr Patch 1 PATCH TRANSDERMA (09:51)
[2021-10-24 10:12] LABS: Ferritin 22 ng/mL (30-400); Iron 30 ug/dL (59-158); Percent Saturation 11.8 % (20-50); Total Iron Binding Capacity 254 mcg/dl; Unsaturated Iron Binding 224 ug/dL (112-347)
[2021-10-24 12:00] VITALS: BP 176/64; PULSE 60; RESP 16; TEMP 36.7; O2SAT 98
[2021-10-24] MEDS: enoxaparin 40 mg/0.4 mL Syringe SUBCUT (13:21)
--- NOTE | 2021-10-24 14:58 | PM.PN ---
Subjective Subjective: Seen this morning.. Blood pressure is still uncontrolled. Started clonidine patch today. Clear for discharge by surgical team. Iron studies ordered and reviewed. Vitals/I&O/Wt Last Vital Signs Temp 98.0 F 10/24/21 12:00 Pulse 60 10/24/21 12:00 Resp 16 10/24/21 12:00 BP 176/64 10/24/21 12:00 Pulse Ox 98 10/24/21 12:00 10/23/21 10/24/21 10/24/21 22:59 06:59 14:59 Intake Total 240 / 440 120 / 120 Output Total 250 / 250 Balance 240 / 440 -250 / 190 120 / 120 Physical Exam Narrative: General: Alert oriented x3, patient seen laying in bed appearing comfortable HEENT: Normocephalic, atraumatic, EOMI, breathing normally Cardio: Regular rate rhythm, normal S1-S2, Respiratory: Good bilateral air entry, no wheezes no rhonchi appreciated GI: Abdomen soft, mildly tender to palpation around incision sites, normoactive bowel sounds, less distended compared to yesterday Extremities:no edema, no cyanosis Urinary Catheter Management: Rosas: Cath Placed During This Visit: yes Reason for Continuing Indwelling Catheter: Acute Urinary Retention or Obstruction Urinary Catheter Date of Insertion: 10/20/21 Urinary Catheter Time of Insertion: 13:15 Data : 10/24/21 08:05 10/24/21 08:05 A&P Assessment and plan (1) S/P right hemicolectomy: Status: Acute (2) Hypertension: Status: Acute Qualifiers: Hypertension type: essential hypertension Qualified Code(s): I10 - Essential (primary) hypertension (3) Type 2 diabetes mellitus: Status: Acute Qualifiers: Diabetes mellitus long term care pharmacist insulin use: without long term care pharmacist use Diabetes mellitus complication status: without complication Qualified Code(s): E11.9 - Type 2 diabetes mellitus without complications (4) History of prostate cancer: Status: Acute (5) Recurrent UTI: Status: Acute (6) Incomplete bladder emptying: Status: Acute (7) Overflow incontinence: Status: Acute (8) Anal stricture: Status: Acute (9) Membranous urethral stricture: Status: Acute Plan #Hepatic flexure mass status post right hemicolectomy postop day 4 #Acute blood loss anemia secondary to surgical procedure #Diabetes mellitus type 2 #Uncontrolled Hypertension #History of prostate cancer #KAYLEY #hyperkalemia ? Order 2 units packed RBC.? Hemoglobin after surgery 6.8.? Type and cross. repeat am hb 9.4.? Hemoglobin stable at 9.5. ? Clear liquid diet. ? Continue on normal saline 100 cc/h.; stop fluids with potassium ? Insulin sliding scale ? Lisinopril 40 daily ? Amlodipine 10 mg daily ? continue to Coreg 25 twice daily ? Continue ciprofloxacin and Flagyl for antibiotic coverage ? Hold home glimepiride, metformin. blood pressure controlled ? Put on home dose lantus 28 unit bedtime now that diet has been advanced, sliding scale insulin ? Recheck labs in a.m. -Add clonidine patch today Check bladder scan. I found a bladder scanner is broken. We will straight cath patient. I have a high suspicion he has urinary retention. We will straight cath and monitor blood pressure IV fluids are stopped. Denies being in pain. DVT prophylaxis: Loven. 40 daily GI prophylaxis: Famotidine 20 twice daily Attestations Medical Necessity Statement*: Still uncontrolled blood pressure. Further medication changes made today. Coding Level of Care Code Acute Pick Up for [facility] Fwd Diagnoses S/P right hemicolectomy Z90.49 Hypertension I10 Hypertension type: essential hypertension Type 2 diabetes mellitus E11.9 Diabetes mellitus halfway insulin use: without halfway use Diabetes mellitus complication status: without complication History of prostate cancer Z85.46 Recurrent UTI N39.0 Incomplete bladder emptying R33.9 Overflow incontinence N39.490 Anal stricture K62.4 Membranous urethral stricture N35.913
--- NOTE | 2021-10-24 15:57 | USR_ITS ---
PROCEDURE INFORMATION: Exam: US Pelvis Limited, Bladder Exam date and time: 10/24/2021 4:01 PM Age: 81 years old Clinical indication: Device placement; Other: Rosas; Additional info: Assess urine amount (dr. De La Garza ordered) TECHNIQUE: Imaging protocol: Real-time pelvic ultrasound with image documentation. COMPARISON: CT abdomen pelvis w con* [id number] 06/25/2021 1:22 PM FINDINGS: Urinary bladder: Unremarkable bladder. Bladder pre-void volume (cc): 247 mL Patient unable to void, therefore post void volume not obtained. US/US bladder [id number] IMPRESSION: Bladder prevoid volume 247 mL.
[2021-10-24 16:00] VITALS: BP 170/71; PULSE 64; RESP 16; TEMP 36.7; O2SAT 98
[2021-10-24 17:09] LABS: Glucose Point of Care 258 mg/dL (70-110)
[2021-10-24 20:00] VITALS: BP 142/66; PULSE 72; RESP 18; TEMP 36.5; O2SAT 96
[2021-10-24 21:14] LABS: Glucose Point of Care 98 mg/dL (70-110)
[2021-10-25] VITALS: BP 160/65; PULSE 64; RESP 17; TEMP 37.1; O2SAT 95
[2021-10-25 03:22] LABS: Basophils # 0.1 10^3/uL (0.0-0.1); Basophils % 0.8 %; Eosinophils # 0.4 10^3/uL (0.0-0.8); Eosinophils % 5.6 %; Hematocrit 28.5 % (42.0-52.0); Hemoglobin 8.8 g/dL (11.7-16.6); Lymphocytes # 1.4 10^3/uL (0.8-4.8); Lymphocytes % 18.7 %; Mean Corpuscular HGB Conc 30.9 g/dL (30.0-36.0); Mean Corpuscular Hemoglobin 23.6 pg (28.0-34.0); Mean Corpuscular Volume 76.4 fl (80-94); Mean Platelet Volume 10.2 fL (7.4-10.4); Monocytes # 0.9 10^3/uL (0.2-0.9); Monocytes % 12.3 %; Neutrophils # 4.75 10^3/uL (1.8-7.7); Neutrophils % 62.2 %; Nucleated Red Blood Cells % 0 %; Platelet Count 266 10^3/cmm (130-400); Red Blood Count 3.73 10^6/uL (4.1-5.3); Red Cell Distribution Width 19.4 % (12.1-15.1); White Blood Count 7.6 10^3/uL (4.0-10.0)
[2021-10-25 03:41] LABS: Slide Review Slide Review Perform
[2021-10-25 03:42] LABS: Blood Urea Nitrogen 23 mg/dL (8-23); Calcium 8.2 mg/dL (8.5-10.5); Carbon Dioxide 20 mmol/L (22-29); Chloride 108 mmol/L (98-107); Glucose 116 mg/dL (65-115); Osmolality Calculated 293 mOsm/kg (285-295); Sodium 139 mmol/L (136-145)
[2021-10-25 03:43] LABS: Anion Gap 15.2 (5-19); Potassium 4.2 mmol/L (3.5-5.1)
[2021-10-25 04:00] VITALS: BP 180/70; PULSE 75; RESP 17; TEMP 37.1; O2SAT 94
[2021-10-25] MEDS: famotidine 20 mg/2 mL INJ IVP (04:39)
[2021-10-25 06:57] LABS: Glucose Point of Care 161 mg/dL (70-110)
[2021-10-25 08:00] VITALS: BP 202/76; PULSE 69; RESP 13; TEMP 36.9; O2SAT 97
[2021-10-25] MEDS: hyDRALAzine 20 mg/mL INJ 1 mL 10 MG IVP (08:54)
[2021-10-25] MEDS: insulin lispro 100 unit/1 mL SUBCUT (08:54)
[2021-10-25] MEDS: insulin glargine 100 units/1 mL 28 UNIT SUBCUT (08:54)
[2021-10-25] MEDS: amlodipine 10 mg Tablet PO (08:55)
[2021-10-25] MEDS: carvedilol 25 mg Tablet PO (08:55)
[2021-10-25] MEDS: lisinopril 20 mg Tablet 40 MG PO (08:55)
[2021-10-25] MEDS: tamsulosin 0.4 mg Capsule PO (08:55)
--- NOTE | 2021-10-25 09:30 | PM.PN ---
Subjective Subjective: Patient is tolerating a GI soft diet, denies any nausea, vomiting, had bowel movements. He continues to be hypertensive on 3 medications. He is keen to go home Vitals/I&O/Wt Last Vital Signs Temp 98.4 F 10/25/21 08:00 Pulse 69 10/25/21 08:00 Resp 13 10/25/21 08:00 BP 202/76 10/25/21 08:00 Pulse Ox 97 10/25/21 08:00 10/24/21 10/25/21 10/25/21 22:59 06:59 14:59 Intake Total 0 / 360 360 / 360 Output Total 0 / 350 350 / 350 Balance 0 / 10 -350 / 10 360 / 360 Physical Exam Narrative: Abdomen: Soft, minimally tender, nondistended, incision clean dry and intact Urinary Catheter Management: Rosas: Cath Placed During This Visit: yes Reason for Continuing Indwelling Catheter: Acute Urinary Retention or Obstruction Urinary Catheter Date of Insertion: 10/20/21 Urinary Catheter Time of Insertion: 13:15 Data : 10/25/21 02:25 10/25/21 02:25 A&P Assessment and plan (1) S/P right hemicolectomy: 81-year-old male status post extended right hemicolectomy, overall doing well. He is keen to go home Continue GI soft diet Await hospitalist service recommendations for management of hypertension prior to discharge. 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
--- NOTE | 2021-10-25 09:30 | PC.SOCIAL ---
IMM Update pg 2 of IMM updated and reviewed w/ patient. Copy provided and Copy in chart updated.
--- NOTE | 2021-10-25 10:25 | PM.DCS ---
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 Subsequently a second attempt was made for endoscopic resection which was unsuccessful considering the extent of the mass and therefore he underwent elective extended right hemicolectomy. Hospital Course Hospital Course By postop day 2 he had return of bowel function and his diet was slowly advanced. At time of discharge he was tolerating a GI soft diet and having bowel movements, his vital signs are stable and his pain was well controlled with oral pain medications. His incision was clean dry and intact. During the hospital course patient was hypertensive with systolic up to 200 and he was initially on lisinopril and amlodipine, Coreg was subsequently added. Physical Exam Urinary Catheter Management: Rosas: Cath Placed During This Visit: yes Reason for Continuing Indwelling Catheter: Acute Urinary Retention or Obstruction Urinary Catheter Date of Insertion: 10/20/21 Urinary Catheter Time of Insertion: 13:15 Discharge Data Studies Completed and Pending Completed Studies During Hospitalization Category Date Time Status bladder 40550 Stat Ultrasound 10/24/21 15:57 Completed Pending at discharge Category Date Time Status Basic Metabolic Panel AM LABS Lab 10/26/21 04:00 Ordered Basic Metabolic Panel AM LABS Lab 10/27/21 04:00 Ordered Complete Blood Count w/Auto AM LABS Lab 10/26/21 04:00 Ordered Complete Blood Count w/Auto AM LABS Lab 10/27/21 04:00 Ordered Pathology: Surgical [PTH] Routine Pth 10/20/21 15:19 Received Radiology Impressions Bladder Ultrasound 10/24/21 15:57 IMPRESSION: Bladder prevoid volume 247 mL. Laboratory Results WBC 7.6 10^3/uL (4.0-10.0) 10/25/21 02:25 RBC 3.73 10^6/uL (4.1-5.3) L 10/25/21 02:25 Hgb 8.8 g/dL (11.7-16.6) L 10/25/21 02:25 Hct 28.5 % (42.0-52.0) L 10/25/21 02:25 MCV 76.4 fl (80-94) L 10/25/21 02:25 MCH 23.6 pg (28.0-34.0) L 10/25/21 02:25 MCHC 30.9 g/dL (30.0-36.0) D 10/25/21 02:25 RDW 19.4 % (12.1-15.1) H 10/25/21 02:25 Plt Count 266 10^3/cmm (130-400) 10/25/21 02:25 MPV 10.2 fL (7.4-10.4) 10/25/21 02:25 Neut % (Auto) 62.2 % 10/25/21 02:25 Lymph % (Auto) 18.7 % 10/25/21 02:25 [place] % (Auto) 12.3 % 10/25/21 02:25 Eos % (Auto) 5.6 % 10/25/21 02:25 Baso % (Auto) 0.8 % 10/25/21 02:25 Neut # (Auto) 4.75 10^3/uL (1.8-7.7) 10/25/21 02:25 Lymph # (Auto) 1.4 10^3/uL (0.8-4.8) 10/25/21 02:25 [place] # (Auto) 0.9 10^3/uL (0.2-0.9) 10/25/21 02:25 Eos # (Auto) 0.4 10^3/uL (0.0-0.8) 10/25/21 02:25 Baso # (Auto) 0.1 10^3/uL (0.0-0.1) 10/25/21 02:25 Nucleated RBC % (auto) 0 % 10/25/21 02:25 Nucleated RBCs # 0.0 /100WBC 10/25/21 02:25 Sodium 139 mmol/L (136-145) 10/25/21 02:25 Potassium 4.2 mmol/L (3.5-5.1) 10/25/21 02:25 Chloride 108 mmol/L (98-107) H 10/25/21 02:25 Carbon Dioxide 20 mmol/L (22-29) L 10/25/21 02:25 Anion Gap 15.2 (5-19) 10/25/21 02:25 BUN 23 mg/dL (8-23) 10/25/21 02:25 Creatinine 0.9 mg/dL (0.7-1.2) 10/25/21 02:25 GFR Calculation Not Reportable 10/25/21 02:25 Glucose 116 mg/dL (65-115) H 10/25/21 02:25 POC Glucose 161 mg/dL (70-110) H 10/25/21 06:46 Calculated Osmolality 293 mOsm/kg (285-295) 10/25/21 02:25 Calcium 8.2 mg/dL (8.5-10.5) L 10/25/21 02:25 Iron 30 ug/dL (59-158) L 10/24/21 08:05 TIBC 254 mcg/dl 10/24/21 08:05 % Saturation 11.8 % (20-50) L 10/24/21 08:05 Unsat Iron Binding 224 ug/dL (112-347) 10/24/21 08:05 Ferritin 22 ng/mL (30-400) L 10/24/21 08:05 Total Bilirubin 0.2 mg/dL (0.15-1.2) 10/20/21 12:35 AST 13 U/L (0-40) 10/20/21 12:35 ALT 10 U/L (0-41) 10/20/21 12:35 Alkaline Phosphatase 90 IU/L (40-130) 10/20/21 12:35 Total Protein 6.0 g/dL (6.6-8.7) L 10/20/21 12:35 Albumin 3.5 g/dL (3.5-5.2) 10/20/21 12:35 Globulin 2.5 g/dL (1.3-4.6) 10/20/21 12:35 Carcinoembryonic Ag 53.9 ng/mL (0.0-4.7) H 10/20/21 12:35 Blood Type O Positive 10/20/21 12:35 Rho(D) Type Positive 10/20/21 12:35 Antibody Screen Negative 10/20/21 12:35 Crossmatch See Detail 10/20/21 12:35 Vitals Last Vital Signs Temp 98.4 F 10/25/21 08:00 Pulse 69 10/25/21 08:00 Resp 13 10/25/21 08:00 BP 202/76 10/25/21 08:00 Pulse Ox 97 10/25/21 08:00 Discharge Plan Discharge Patient Disposition: Home Condition: Stable Prescriptions: New Percocet 5-325 mg tablet 1 tab PO Q6H PRN (Reason: pain) Qty: 20 0RF sennosides-docusate sodium [Senna with Docusate Sodium] 8.6-50 mg tablet 1 tab-cap PO BID Qty: 30 0RF ondansetron HCl 4 mg tablet 4 mg PO Q8H 5 Days Qty: 15 0RF No Action tamsulosin 0.4 mg capsule 0.4 mg PO BID Qty: 180 3RF docusate sodium [Colace] 100 mg capsule 100 mg PO TID 0RF multivitamin Tablet 1 tab PO DAILY 0RF methenamine hippurate 1 gram tablet 1 g PO BID Qty: 240 3RF ascorbic acid (vitamin C) 1,000 mg tablet 1 g PO BID Qty: 180 3RF magnesium hydroxide [Elder Milk of Magnesia] 400 mg/5 mL suspension 7.5 ml PO BID PRN (Reason: Constipation) 0RF glycerin (adult) [Fleet Glycerin (Adult)] Suppository 1 supp MO DAILY PRN (Reason: Constipation) 0RF calcium carbonate [Calcium 600] 600 mg calcium (1,500 mg) tablet 600 mg PO QAM 0RF lisinopril 40 mg tablet 40 mg PO DAILY Qty: 90 3RF glyburide 5 mg tablet 10 mg PO TID Qty: 270 3RF (DME) OneTouch Ultra Test Strip See Rx Instructions .Route Qty: 200 3RF Rx Instructions: to test two times a day pioglitazone 45 mg tablet 45 mg PO QAM 0RF amlodipine 10 mg tablet 10 mg PO QAM 0RF metformin 1,000 mg tablet 500 mg PO BID 0RF Novolin N Flexpen 100 unit/mL (3 mL) insulin pen 28 unit SUBCUT QAM 0RF Vitamin D3 1 cap PO QAM 0RF Discharge Orders: Discharge Order (Routine); Ordered 10/25/21 Ordered By: Cm Whitaker Referrals: Cm Whitaker MD [Physician] - 11/05/21 Patient Instructions: Opioid Safety Activity Restrictions/Additional Instructions: Diet Advance to normal diet as tolerated, increase fluid intake as much as possible. Activity Avoid strenuous activity for 2 weeks but continue with daily activities including walking as tolerated. Do not lift more than 10 pounds for 2 weeks Return to work/school You can return to work/ school whenever you feel ready as long as you don?t have to lift more than 10 pounds at work. If you have paperwork that needs to be completed for time off from work, please contact my office Driving You can resume driving once you stop using narcotic pain medications, and transition to non-opioid pain medications like Tylenol, Motrin, Aleve, etc. Medications Pain Take opioid pain medications as prescribed and transition to non-opioid pain medications like Tylenol, Motrin, Aleve etc. over the next few days. The goal of the pain medications is to make the pain bearable and not to be pain free since you recently had surgery. Resume all home medications after surgery as per the medication reconciliation list Nausea Nausea is common after surgery, take nausea medications as needed and stay on a liquid bland diet until nausea resolves. Constipation The combination of surgery, anesthesia and pain medications can result in constipation. Take stool softeners as prescribed. If you do not have a bowel movement in 3 days, please take an [id number] laxative like MiraLAX to address the constipation. Shower It is ok to shower but avoid getting the wound wet for 48 hours after surgery. Do not soak in bathtub, swimming pool or hot tub for 2 weeks. Wound care If glue has been used on your incisions after surgery, the glue on the incision will peel slowly over the next two weeks. The stitches used are dissolvable and will not need to be removed. Do not apply antibiotics or other medications on the incision Problems with the wound: you can develop some redness around the incision from bruising after surgery. If there is increasing pain, redness, tenderness around the incision with or without drainage, please contact my office to rule out an infection. Sometimes the skin at the incisions can separate, resulting in reopening of the wound. Cover the wound with antibiotic cream and sterile dressings and contact my office. Contact physician Call the office at [phone] during office hours or go the Emergency Room ?Fever to 100.4 or greater ?Shaking chills ?Pain that increases over time ?Redness, warmth, or pus draining from incision sites ?Persistent nausea or inability to take in liquids Discharge Attestations Time Spent in Discharge Care*: less than 30 min Quality Metrics Clinical Quality Measures [ No reported AMI, CVA or VTE this stay] Coding Level of Care Code Acute Chg FW DC note Diagnoses S/P right hemicolectomy Z90.49
--- NOTE | 2021-10-25 10:53 | PM.PN ---
Subjective Subjective: Hospital course, labs appreciated. Today morning examination seen with at bedside. Blood pressures have been running on the higher side. As per the patient and patient's his blood pressures have been running high whenever he goes to see his physician in his office but when he checks his blood pressures at home they are always running in 140s. We discussed the possibility of faulty blood pressure machine at home. We discussed that patient should probably buy a new blood pressure cuff for further evaluation and save blood pressure monitoring. Both patient and patient's verbalized understanding. Currently denies any nausea, vomiting, headache. Plan for discharge as per surgical primary team. Vitals/I&O/Wt Last Vital Signs Temp 98.4 F 10/25/21 08:00 Pulse 69 10/25/21 08:00 Resp 13 10/25/21 08:00 BP 202/76 10/25/21 08:00 Pulse Ox 97 10/25/21 08:00 10/24/21 10/25/21 10/25/21 22:59 06:59 14:59 Intake Total 0 / 360 360 / 360 Output Total 0 / 0 350 / 350 Balance 0 / 360 -350 / 10 360 / 360 Physical Exam Narrative: General: Alert oriented x3, comfortably sitting up in chair HEENT: Normocephalic, atraumatic, EOMI, breathing normally Cardio: Regular rate rhythm, normal S1-S2, Respiratory: Good bilateral air entry, no wheezes no rhonchi appreciated GI: Abdomen soft, mildly tender to palpation around incision sites, normoactive bowel sounds, less distended compared to yesterday Extremities:no edema, no cyanosis Urinary Catheter Management: Rosas: Cath Placed During This Visit: yes Reason for Continuing Indwelling Catheter: Acute Urinary Retention or Obstruction Urinary Catheter Date of Insertion: 10/20/21 Urinary Catheter Time of Insertion: 13:15 Data : 10/25/21 02:25 10/25/21 02:25 A&P Assessment and plan (1) S/P right hemicolectomy: Status: Acute (2) Hypertension: Status: Acute Qualifiers: Hypertension type: essential hypertension Qualified Code(s): I10 - Essential (primary) hypertension (3) Type 2 diabetes mellitus: Status: Acute Qualifiers: Diabetes mellitus complication status: without complication Diabetes mellitus longterm insulin use: without longterm use Qualified Code(s): E11.9 - Type 2 diabetes mellitus without complications (4) History of prostate cancer: Status: Acute (5) Recurrent UTI: Status: Acute (6) Incomplete bladder emptying: Status: Acute (7) Overflow incontinence: Status: Acute (8) Anal stricture: Status: Acute (9) Membranous urethral stricture: Status: Acute Plan #Hepatic flexure mass status post right hemicolectomy postop day 4 #Acute blood loss anemia secondary to surgical procedure #Diabetes mellitus type 2 #Uncontrolled Hypertension #History of prostate cancer #KAYLEY #hyperkalemia Blood pressure has been chronically elevated. Target blood pressure for now 160mmhg systolics. Continue home dose of amlodipine 10 mg daily, lisinopril 40 mg daily. Will add carvedilol 25 mg twice daily we will continue carvedilol 25 mg twice daily. Will add chlorthalidone 25 mg daily, hydralazine 50 mg 3 times a day. Will continue home antidiabetic medications for now. Should have repeat HbA1c within next 2 months. Patient is advised to check his blood pressure daily at home and his blood pressure daily and follow-up with his primary care provider within next 2 weeks for further adjustment of antihypertensives. Of blood pressure was still not maintained should benefit from work-up for secondary hypertension. Patient is safe to be discharged from medical standpoint. Attestations Medical Necessity Statement*: As per primary team Time Spent in Patient Care: Greater than 35 minutes Coding Level of Care Code Acute Acoustical Installer for Chg Fwd Diagnoses S/P right hemicolectomy Z90.49 Hypertension I10 Hypertension type: essential hypertension Type 2 diabetes mellitus E11.9 Diabetes mellitus complication status: without complication Diabetes mellitus manager intermediate insulin use: without longterm use History of prostate cancer Z85.46 Recurrent UTI N39.0 Incomplete bladder emptying R33.9 Overflow incontinence N39.490 Anal stricture K62.4 Membranous urethral stricture N35.913
[2021-10-25 11:28] VITALS: BP 150/66; PULSE 63; O2SAT 96
[2021-10-25 12:13] VITALS: BP 150/66; PULSE 63; RESP 13; TEMP 36.9; O2SAT 96
== END 2021-10-25 12:00 | disposition still patient (30) | DRG 330 ==
LOC: MEDSURG 10-21 08:28
PROVIDERS: Internal Medicine; Urology; Admitting Provider Surgery; PCP Family Medicine; Visit Provider Surgery
PROC: 0DTF4ZZ Resection of Right Large Intestine, Percutaneous Endoscopic Approach (ICD-10-PCS; CPT 44205; principal; 2021-10-20 11:00)
PROC: 0T7D7ZZ Dilation of Urethra, Via Natural or Artificial Opening (ICD-10-PCS; 2021-10-20 11:00)
DX: K63.5 Polyp of colon (principal); N17.9 Acute kidney failure, unspecified; D62 Acute posthemorrhagic anemia; Z85.46 Personal history of malignant neoplasm of prostate; I10 Essential (primary) hypertension; N40.1 Benign prostatic hyperplasia with lower urinary tract symptoms; N39.490 Overflow incontinence; R39.14 Feeling of incomplete bladder emptying; R39.15 Urgency of urination; R35.1 Nocturia; Z87.440 Personal history of urinary (tract) infections; E11.9 Type 2 diabetes mellitus without complications; Z87.891 Personal history of nicotine dependence; Z92.3 Personal history of irradiation; K62.7 Radiation proctitis; W88.1XXS Exposure to radioactive isotopes, sequela; N35.919 Unspecified urethral stricture, male, unspecified site; Z79.84 Long term (current) use of oral hypoglycemic drugs; Z79.4 Long term (current) use of insulin; K59.00 Constipation, unspecified; K62.4 Stenosis of anus and rectum
CPT/HCPCS: 36415; 36416; 36430; 76857; 80048; 80053; 82378; 82728; 82962; 83540; 83550; 85014; 85018; 85025; 86850; 86900; 86920; 88309; 94664; 96372; 97110; 97116; 97161; 97530; 99214; C9290; J0360; J0610; J0744; J1100; J1200; J1650; J1815 ×2; J2270; J2405; J2704; J2710; J3010; J3490; J7030; P9016; S0030

== ENCOUNTER → 2021-11-05 08:41 | Outpatient (BNVA) | payer MEDICARE, OTHER, SELFPAY | PROVIDERS: PCP Family Medicine; Visit Provider Surgery | DX: K52.9 Noninfective gastroenteritis and colitis, unspecified (principal); Z90.49 Acquired absence of other specified parts of digestive tract | CPT/HCPCS: 99213 ==

== ENCOUNTER → 2021-11-17 10:55 | Outpatient (BNVA) | payer MEDICARE, OTHER, SELFPAY | PROVIDERS: PCP Family Medicine; Visit Provider Family Medicine | DX: E11.9 Type 2 diabetes mellitus without complications (principal); Z90.49 Acquired absence of other specified parts of digestive tract; K52.9 Noninfective gastroenteritis and colitis, unspecified | CPT/HCPCS: 83036 ==

== ENCOUNTER → 2021-11-30 08:53 | Outpatient (BNVA) | payer MEDICARE, OTHER, SELFPAY | PROVIDERS: PCP Family Medicine; Visit Provider Surgery | DX: Z98.890 Other specified postprocedural states (principal); Z90.49 Acquired absence of other specified parts of digestive tract; E11.9 Type 2 diabetes mellitus without complications; K52.9 Noninfective gastroenteritis and colitis, unspecified | CPT/HCPCS: 99024 ==

== ENCOUNTER → 2021-12-31 11:38 | Outpatient (BNVA) | payer MEDICARE, OTHER, SELFPAY | PROVIDERS: PCP Family Medicine; Visit Provider Nurse Practitioner Family | DX: E16.2 Hypoglycemia, unspecified (principal) | CPT/HCPCS: 82962 ==

== ENCOUNTER → 2022-01-05 14:37 | Outpatient (BNVA) | payer MEDICARE, OTHER, SELFPAY | PROVIDERS: PCP Family Medicine; Visit Provider Nurse Practitioner Family | DX: E11.9 Type 2 diabetes mellitus without complications (principal) | CPT/HCPCS: 82962 ==

== ENCOUNTER → 2022-02-16 09:40 | Outpatient (BNVA) | payer MEDICARE, OTHER, SELFPAY | PROVIDERS: PCP Family Medicine; Visit Provider Family Medicine | DX: E11.9 Type 2 diabetes mellitus without complications (principal) | CPT/HCPCS: 83036 ==

== ENCOUNTER → 2022-03-10 15:07 | Outpatient (BNVA) | payer MEDICARE, OTHER, SELFPAY | PROVIDERS: PCP Family Medicine; Visit Provider Urology | DX: N35.913 Unspecified membranous urethral stricture, male (principal); N39.0 Urinary tract infection, site not specified; Z85.46 Personal history of malignant neoplasm of prostate | CPT/HCPCS: 51798; 81003; 99213 ==

== ENCOUNTER → 2023-01-12 08:24 | Outpatient (BNVA) | payer MEDICARE, OTHER, SELFPAY | PROVIDERS: PCP Family Medicine; Visit Provider Family Medicine | DX: E11.9 Type 2 diabetes mellitus without complications (principal) | CPT/HCPCS: 83036 ==

== ENCOUNTER → 2023-03-06 10:59 | Outpatient (BNVA) | payer MEDICARE, OTHER, SELFPAY | PROVIDERS: PCP Family Medicine; Visit Provider Family Medicine | DX: R31.9 Hematuria, unspecified (principal); E11.9 Type 2 diabetes mellitus without complications | CPT/HCPCS: 81003; 87077; 87086; 87184 ==

== ENCOUNTER → 2023-04-19 16:55 | Outpatient (BNVA) | payer MEDICARE, OTHER, SELFPAY | PROVIDERS: PCP Family Medicine; Visit Provider Family Medicine | DX: E11.9 Type 2 diabetes mellitus without complications (principal) | CPT/HCPCS: 83036 ==

== ENCOUNTER → 2023-07-19 09:11 | Outpatient (BNVA) | payer MEDICARE, OTHER, SELFPAY | PROVIDERS: PCP Family Medicine; Visit Provider Family Medicine | DX: E11.9 Type 2 diabetes mellitus without complications (principal) | CPT/HCPCS: 83036 ==

== ENCOUNTER → 2023-11-02 11:14 | Outpatient (BNVA) | payer MEDICARE, OTHER, SELFPAY | PROVIDERS: PCP Family Medicine; Visit Provider Family Medicine | DX: E11.9 Type 2 diabetes mellitus without complications (principal) | CPT/HCPCS: 83036 ==

== ENCOUNTER 2023-12-06 06:46 | Inpatient (IN) | payer MEDICARE, SELFPAY ==
[2023-12-06] VITALS (78 sets, daily range): BP systolic 136–195; BP diastolic 52–78; PULSE 50–90; RESP 11–28; TEMP 34.4–36.9; O2SAT 84–97; BMI 27.8
[2023-12-06 06:56] LABS: Glucose Point of Care 112 mg/dL (70-110)
--- NOTE | 2023-12-06 06:56 | XRR_ITS ---
PROCEDURE INFORMATION: Exam: XR Chest Exam date and time: 12/06/2023 7:00 AM Age: 83 years old Clinical indication: Other: Weakness TECHNIQUE: Imaging protocol: Radiologic exam of the chest. Views: 1 view. COMPARISON: CT abdomen pelvis w con* [id number] 06/25/2021 1:22 PM FINDINGS: Lungs: Unremarkable. No consolidation. Pleural spaces: Unremarkable. No pleural effusion. No pneumothorax. Heart/Mediastinum: Unremarkable. No cardiomegaly. Bones/joints: Unremarkable. XR/XR chest 1V portable [id number] IMPRESSION: No acute findings.
[2023-12-06 07:50] LABS: Basophils # 0.1 10^3/uL (0.0-0.1); Basophils % 0.6 %; Eosinophils # 0.3 10^3/uL (0.0-0.8); Eosinophils % 2.2 %; Hematocrit 33.6 % (37-53); Lymphocytes # 1.2 10^3/uL (0.8-4.8); Lymphocytes % 9.8 %; Mean Corpuscular HGB Conc 30.1 g/dL (30-55); Mean Corpuscular Hemoglobin 26.2 pg (27-33); Mean Platelet Volume 8.8 fL (7.4-10.4); Monocytes # 0.6 10^3/uL (0.2-0.9); Monocytes % 4.7 %; Neutrophils # 10.32 10^3/uL (1.8-7.7); Nucleated Red Blood Cells % 0 %; Platelet Count 221 10^3/cmm (157-399); Red Blood Count 3.86 10^6/uL (3.85-5.65); Red Cell Distribution Width 14.5 % (12.1-15.1); White Blood Count 12.59 10^3/uL (3.29-11.43)
[2023-12-06 07:58] LABS: Glucose Point of Care 73 mg/dL (70-110)
[2023-12-06 08:10] LABS: Alanine Aminotransferase 15 U/L (0-41); Albumin Level 3.3 g/dL (3.5-5.2); Alkaline Phosphatase 79 U/L (40-130); Anion Gap 14.2 (5-19); Aspartate Amino Transferase 13 U/L (0-40); Blood Urea Nitrogen 41 mg/dL (8-23); Calcium 8.4 mg/dL (8.5-10.5); Carbon Dioxide 20 mmol/L (22-29); Chloride 109 mmol/L (98-107); Glucose 80 mg/dL (65-115); Lactic Sepsis W/Reflex 1.7 mmol/L (0.5-2.2); Osmolality Calculated 297 mOsm/kg (285-295); Potassium 4.2 mmol/L (3.5-5.1); Sodium 139 mmol/L (136-145); Total Bilirubin 0.2 mg/dL (0.15-1.2); Total Protein 6.3 g/dL (6.6-8.7)
[2023-12-06 08:13] LABS: Creatinine Clr Calc Pharmacy 40.9623
--- NOTE | 2023-12-06 08:16 | W.ED.GENADLT ---
HPI - General Adult General: Chief complaint: General Medical Stated complaint: hypoglycemia Time Seen by Provider: 12/06/23 06:49 History of Present Illness: 83-year-old man with a history of diabetes on NPH insulin twice a day and glyburide, with multiple recent episodes of hypoglycemia, recurrent urinary tract infections and hypertension who presents to the emergency room after being found confused and unresponsive this morning. His sugar was low. EMS reports giving 250 mL of D10 and his sugar increased to 180. By the time he arrived here it was back down to 100. He is hypothermic on presentation. His mentation seems to be back near baseline. He is able to communicate with me without difficulty. No focal motor deficits. He does not report any fevers. No cough. No chest pain. No abdominal pain. Review of Systems Narrative: Constitutional symptoms: Negative except as documented in HPI. Skin symptoms: Negative except as documented in HPI. Eye symptoms: Negative except as documented in HPI. ENMT symptoms: Negative except as documented in HPI. Respiratory symptoms: Negative except as documented in HPI. Cardiovascular symptoms: Negative except as documented in HPI. Gastrointestinal symptoms: Negative except as documented in HPI. Genitourinary symptoms: Negative except as documented in HPI. Musculoskeletal symptoms: Negative except as documented in HPI. Neurologic symptoms: Negative except as documented in HPI. Psychiatric symptoms: Negative except as documented in HPI. Endocrine symptoms: Negative except as documented in HPI. [facility] ED PFSH: Medical History (Updated 12/06/23 @ 09:35 by Melina Stacy MD) BPH w urinary obs/LUTS Colon polyp Radiation proctitis Membranous urethral stricture Overflow incontinence Incomplete bladder emptying Recurrent UTI History of prostate cancer Type 2 diabetes mellitus Hypertension Surgical History S/P right hemicolectomy (10/20/21) Status post colonoscopy with polypectomy (06/09/21) Previous back surgery Family History Mother , 66 Cancer Uterine Father , 74 Cancer prostate Social History Smoking and tobacco/nicotine status: never used tobacco/nicotine Quit status (tobacco/nicotine): has quit using Year quit tobacco: 1981 Alcohol intake: never Marital status: Current occupational status: retired Physical Exam Narrative: EXAM NARRATIVE: General: Alert, no acute distress. Skin: Warm, dry. Head: Normocephalic, atraumatic. Neck: Supple, trachea midline. Eye: Extraocular movements are intact. Ears, nose, mouth and throat: Tacky oral mucosa Cardiovascular: Regular, Normal peripheral perfusion. Respiratory: Lungs are clear to auscultation, respirations are non-labored, breath sounds are equal, Symmetrical chest wall expansion. Gastrointestinal: Soft, Nontender, Non distended Musculoskeletal: Normal ROM, no deformity. Neurological: Alert and oriented, No focal neurological deficit observed. Psychiatric: Cooperative, appropriate mood & affect. Course Vital Signs: Vital signs: Vital Signs Temperature 94.5 F L 12/06/23 09:36 Pulse Rate 68 12/06/23 09:36 Respiratory Rate 14 12/06/23 06:49 Blood Pressure 156/60 12/06/23 09:36 Pulse Oximetry 97 12/06/23 09:36 Oxygen Delivery Me thod Room Air 12/06/23 09:36 MDM - General Adult Medical Decision Making Medical decision making: Differential diagnosis for the patient with hyperglycemia would include but not be limited to and would be based on the above HPI review of systems and physical exam: DKA. Dehydration. Renal failure. Concern for electrolyte abnormalities. Concern for underlying infection that might result in hyperglycemia. Medical non-compliance Orders placed to evaluate differential diagnosis of the patient with hyperglycemia are based on the above differential, HPI and physical exam. Lab Review: Laboratory results were reviewed and interpreted by myself the emergency room physician. Patient has leukocytosis with a white count 13,000. Anemia with a hemoglobin of 10. BUN and creatinine are elevated over his baseline at 41 and 1.5. His creatinine normally runs about 0.5-0.6. Glucose has dropped again into the 70s and 80s. More D10 is being given. Urine shows an obvious infection. Chest x-ray: No acute process. No infiltrate. No pneumothorax. This was reviewed and interpreted by myself the ER physician. I reviewed the patient's medical record. Reexamination: Patient has had decreased sugar down to around 70 again. More D10 is being given. He has remained lucid though. No focal motor deficits. No altered mental status. He had no increased work of breathing. No vomiting while he has been here. Assessment and plan: Hypoglycemia Urinary tract infection Sepsis Acute renal insufficiency Dehydration Hypothermia ?Patient has required an additional 250 mL bolus of D10. -2.5 L normal saline bolus. Fluid volumes based on ideal body weight. -Lactate and blood cultures were ordered at that time urine was posted and showed that the patient had a UTI. -IV Rocephin -Sepsis quality measures. -I discussed the patient with the hospitalist on-call who is admitting the patient. - Discussed findings and plan with patient. Answered any questions. - All laboratory values were reviewed and interpreted personally by myself, the ER physician - All imaging was reviewed and interpreted personally by myself, the ER physician. - Evaluation and treatment of this problem were appropriate in the emergency setting -I spent a total of >35 minutes of critical care time managing the patient, independent of any other practitioner. -The time involved in the performance of separately reportable procedures was not counted towards critical care time. Lab Data 12/06/23 07:37 12/06/23 07:37 Radiology Impressions Chest X-Ray 12/06/23 06:56 IMPRESSION: No acute findings. Laboratory Results WBC 12.59 10^3/uL (3.29-11.43) H 12/06/23 07:37 RBC 3.86 10^6/uL (3.85-5.65) 12/06/23 07:37 Hgb 10.10 g/dL (11.27-16.99) L 12/06/23 07:37 Hct 33.6 % (37-53) L 12/06/23 07:37 MCV 87.0 fl (82-101) 12/06/23 07:37 MCH 26.2 pg (27-33) L 12/06/23 07:37 MCHC 30.1 g/dL (30-55) 12/06/23 07:37 RDW 14.5 % (12.1-15.1) 12/06/23 07:37 Plt Count 221 10^3/cmm (157-399) 12/06/23 07:37 MPV 8.8 fL (7.4-10.4) 12/06/23 07:37 Neut % (Auto) 82.0 % 12/06/23 07:37 Lymph % (Auto) 9.8 % 12/06/23 07:37 [place] % (Auto) 4.7 % 12/06/23 07:37 Eos % (Auto) 2.2 % 12/06/23 07:37 Baso % (Auto) 0.6 % 12/06/23 07:37 Neut # (Auto) 10.32 10^3/uL (1.8-7.7) H 12/06/23 07:37 Lymph # (Auto) 1.2 10^3/uL (0.8-4.8) 12/06/23 07:37 [place] # (Auto) 0.6 10^3/uL (0.2-0.9) 12/06/23 07:37 Eos # (Auto) 0.3 10^3/uL (0.0-0.8) 12/06/23 07:37 Baso # (Auto) 0.1 10^3/uL (0.0-0.1) 12/06/23 07:37 Nucleated RBC % (auto) 0 % 12/06/23 07:37 Nucleated RBCs # 0.0 /100WBC 12/06/23 07:37 Sodium 139 mmol/L (136-145) 12/06/23 07:37 Potassium 4.2 mmol/L (3.5-5.1) 12/06/23 07:37 Chloride 109 mmol/L (98-107) H 12/06/23 07:37 Carbon Dioxide 20 mmol/L (22-29) L 12/06/23 07:37 Anion Gap 14.2 (5-19) 12/06/23 07:37 BUN 41 mg/dL (8-23) H 12/06/23 07:37 Creatinine 1.5 mg/dL (0.7-1.2) H 12/06/23 07:37 GFR Calculation Not Reportable 12/06/23 07:37 Glucose 80 mg/dL (65-115) 12/06/23 07:37 POC Glucose 193 mg/dL (70-110) H 12/06/23 09:31 Calculated Osmolality 297 mOsm/kg (285-295) H 12/06/23 07:37 Lactic Acid 1.7 mmol/L (0.5-2.2) 12/06/23 07:37 Calcium 8.4 mg/dL (8.5-10.5) L 12/06/23 07:37 Total Bilirubin 0.2 mg/dL (0.15-1.2) 12/06/23 07:37 AST 13 U/L (0-40) 12/06/23 07:37 ALT 15 U/L (0-41) 12/06/23 07:37 Alkaline Phosphatase 79 U/L (40-130) 12/06/23 07:37 C-Reactive Protein 3.0 mg/L (0.0-4.9) 12/06/23 07:37 Total Protein 6.3 g/dL (6.6-8.7) L 12/06/23 07:37 Albumin 3.3 g/dL (3.5-5.2) L 12/06/23 07:37 Globulin 3.0 g/dL (1.3-4.6) 12/06/23 07:37 Urine Color Yellow (Yellow) 12/06/23 08:40 Urine Appearance Cloudy (CLEAR) A 12/06/23 08:40 Urine pH 6 (5-7) 12/06/23 08:40 Ur Specific [place] 1.010 (1.005-1.030) 12/06/23 08:40 Urine Protein Trace (Negative) 12/06/23 08:40 Urine Glucose (UA) Norm (Normal) 12/06/23 08:40 Urine Ketones Negative (Negative) 12/06/23 08:40 Urine Blood 2+ (Negative) H 12/06/23 08:40 Urine Nitrate Negative (Negative) 12/06/23 08:40 Urine Bilirubin Neg (Negative) 12/06/23 08:40 Urine Urobilinogen Norm mg/dL (Negative) 12/06/23 08:40 Ur Leukocyte Esterase 1+ (Negative) H 12/06/23 08:40 Urine RBC 5-10 /hpf (0-2) H 12/06/23 08:40 Urine WBC 55-80 /hpf (0-5) H 12/06/23 08:40 Ur Squamous Epith Cells 5-10 /hpf (0-5) H 12/06/23 08:40 Amorphous Sediment Trace /hpf 12/06/23 08:40 Urine Bacteria Trace /hpf (NONE) 12/06/23 08:40 Urine Mucus Trace /hpf 12/06/23 08:40 All radiology interpretation(s) finalized by discharge Discharge Plan Discharge Patient Disposition: Admitted As Inpatient Clinical Impression: UTI (urinary tract infection), Hypoglycemia, Acute on chronic renal insufficiency, Hypothermia, Sepsis Condition: Stable Coding Level of Care Code ED [employer] Assistant for Eva Garcia
[2023-12-06 08:39] LABS: Glucose Point of Care 75 mg/dL (70-110)
[2023-12-06] MEDS: sodium chloride 0.9% 1,000 ML 999 ML IV ×2 (08:57→09:58)
[2023-12-06] MEDS: dextrose 10% 250 ML 1000 ML IV (08:58)
[2023-12-06 08:59] LABS: Bilirubin Urine Neg (Negative); Blood Urine 2+ (Negative); Glucose Urine UA Norm (Normal); Ketones Urine Negative (Negative); Leukocyte Esterase Urine 1+ (Negative); Nitrate Urine Negative (Negative); Protein Urine Trace (Negative); Urine Appearance Cloudy (CLEAR); Urine Color Yellow (Yellow); Urobilinogen Urine Norm (Negative); pH Urine 6 (5-7)
[2023-12-06 09:11] LABS: Add Urine Culture? Yes; Amorphous Sediment Urine TRACE /hpf; Bacteria Urine TRACE /hpf; Mucus Urine TRACE /hpf; WBC Urine 55-80 /hpf (0-5)
[2023-12-06 09:39] LABS: Glucose Point of Care 193 mg/dL (70-110)
[2023-12-06] MEDS: cefTRIAXone 1,000 mg SDV 1000 MG IVP (09:58)
[2023-12-06] MEDS: sodium chloride 0.9% 500 ML 999 ML IV (09:58)
--- NOTE | 2023-12-06 10:56 | CT_ITS ---
WS: [id number] CT ABDOMEN AND PELVIS NONCONTRAST HISTORY: UTI, sepsis, hematuria, renal failure TECHNIQUE: Imaging performed through the abdomen and pelvis. Coronal and sagittal reformats are submi tted. All CT scans at [facility] use at least one of these dose optimization techniques: auto mated exposure control; mA and/or kV adjustment per patient size (includes targeted exams where dose is matched to clinical indication); or iterative reconstruction. DLP: 724.23 mGy.cm COMPARISON: 06/25/2021 Lower thorax: Bilateral basilar opacifications, LEFT greater than RIGHT. Mild groundglass and hazy at tenuation probably representing early pneumonia or pneumonitis. Heart is normal size. Moderate to lar ge hiatal hernia. Liver: Normal size liver. No mass or bile duct dilatation. Gallbladder: Normal gallbladder. No pericholecystic fluid or cholelithiasis. No gallbladder wall thic [place]. Pancreas: Normal size and attenuation. Normal pancreatic duct. No pancreatitis or mass. Spleen: Normal. Adrenal glands: Bilateral adrenal adenomas. RIGHT adrenal adenoma measures 1.6 x 1.6 cm. LEFT adrenal adenoma measures 2.1 x 1.7 cm. Stable since 06/25/2021 Right kidney: Mild perinephric stranding. No renal stone. There is mild dilatation of the RIGHT renal pelvis which is probably extrarenal pelvis. The RIGHT ureter is very mildly prominent but no stone i dentified. Very distal ureter becomes more decompressed. Left kidney: Normal size kidney. Very slight dilatation of the renal pelvis. No calyceal dilatation. This is probably an extrarenal pelvis. No ureteral calcification or stones. Aorta: Mild atherosclerosis abdominal aorta with no aneurysm. Mildly lobulated celiac axis. No free fluid, intraperitoneal air or significant lymphadenopathy. GI tract: Nondistended stomach. No small bowel obstruction. Surgical sutures to the transverse colon. Anastomotic site is intact. No mass or obstruction. Diverticular disease distally within the colon b ut no acute diverticulitis. Abdominal wall: Ventral abdominal wall hernia. Mild diastases near the umbilicus. Pelvis: Well-distended urinary bladder. Urinary bladder wall is mildly and diffusely thickened. Prost ate gland is enlarged and heterogeneous with encroachment into the bladder. Progression of prostate g land enlargement towards the sidewalls of the pelvis. Hazy soft tissue attenuation surrounding the en larging prostate. Prostate calcifications. Osseous structures: Increase in lumbar lordosis. Scoliosis. Slightly spiculated sclerotic RIGHT ileal lesion no change since 06/25/2021. Similar sclerotic lesion LEFT ilium is unchanged. CT/CT kidney stone [id number] IMPRESSION: 1. No renal or ureteral calcification. 2. Mild dilatation of the RIGHT renal pelvis. Similar findings were noted on t he prior CT of 06/25/2021. There is no obstructing radiopaque calcification in t he ureter. It may be worthwhile reevaluating the RIGHT renal pelvic dilatation and RIGHT ureter dilatation after patient's acute episode resolves. If the uret eral and renal pelvis dilatation persists it could be an obstructing uroepithel ial neoplasm in the distal RIGHT ureter. 3. Small extrarenal pelvis on the LEFT with no obstruction. 4. Heterogeneous urinary bladder. 5. Very heterogeneous enlarged prostate with progression since 2021. Prostate now extends to the sidewalls of the pelvis with slightly greater encasement saurav ng the posterior urinary bladder. May be progression of patient's known prostat e carcinoma. 6. Anastomotic sutures in the mid transverse colon with no obstruction or mass . 7. Stable bilateral adrenal adenomas. 8. Moderate to large hiatal hernia. 9. Bibasilar pulmonary opacifications. Pneumonitis/developing pneumonia.
--- NOTE | 2023-12-06 11:05 | P.HP_ITS ---
Providers/Chief Complaint 2 Admitting Physician: Raj Ortega MD, hospitalist Primary Care Provider: Aren Mosquera DO Chief Complaint: hypoglycemia History of Present Illness Jorge Nolasco is a 83 year old male who was found earlier this morning around 5 to 6 AM by his with decreased responsiveness and hypoglycemia. She thinks his sugar was around 40. This has happened around 3 times this month. She reports she started giving him orange juice, but he spit it out, and was not alert enough so she called the ambulance. They gave D10 and route, and brought him to the emergency department. He has past history of diabetes, hypertension, BPH, prostate cancer, anemia, and chronic diarrhea from colonic resection in the past secondary to a precancer. He has not had any fevers lately, and had felt well yesterday. He was noted to be hypothermic in the emergency department, with a UTI and acute kidney injury. He received some ceftriaxone, but I believe he received this prior to getting blood cultures. He has already received over 2 L of saline in the emergency department. Patient himself reports he is feeling better. He denies any nausea. is present with him and reports he is thinking clear currently. They deny any recent UTI but he has had frequent UTIs in the past. They deny any history of self cath, or resistant UTIs. Review of Systems 2 General: Reports: 10 or more systems reviewed and unremarkable except in HPI and below Card: Denies: chest pain Resp: Denies: dyspnea GI: Denies: abdominal pain, nausea or vomiting Medications/Allergies Home Medications Medication Instructions Recorded Confirmed Last Taken Type multivitamin 1 tab PO DAILY 12/16/20 12/06/23 12/05/23 History ascorbic acid (vitamin C) 1,000 mg 1 g PO BID #180 tabs 12/17/20 12/06/23 12/05/23 Rx tablet magnesium hydroxide 400 mg/5 mL 7.5 ml PO BID PRN Constipation 04/21/21 12/06/23 Unknown History oral suspension (Elder Milk of Magnesia) calcium carbonate (Calcium 600) 600 mg PO QAM 05/24/21 12/06/23 12/05/23 History ondansetron HCl 4 mg tablet 4 mg PO Q8H PRN Nausea 11/30/21 12/06/23 Unknown History carvedilol 25 mg tablet 25 mg PO BID #180 tabs 11/18/22 12/06/23 12/05/23 Rx tamsulosin 0.4 mg capsule 0.4 mg PO BID #180 caps 11/18/22 12/06/23 12/05/23 Rx lisinopril 40 mg tablet 40 mg PO DAILY #90 tabs 12/29/22 12/06/23 12/05/23 Rx hydrochlorothiazide 12.5 mg tablet 12.5 mg PO DAILY #90 tabs 01/12/23 12/06/23 12/05/23 Rx blood sugar diagnostic (OneTouch #200 ea 01/18/23 12/06/23 Unknown Rx Ultra Test strips) methenamine hippurate 1 gram tablet 1 g PO BID #240 tabs 01/18/23 12/06/23 12/05/23 Rx insulin NPH isoph U-100 human 100 See Rx Instructions SUBCUT 03/06/23 12/06/23 12/05/23 Rx unit/mL (3 mL) subcutaneous pen .COMPLEX #15 mL (Novolin N FlexPen) glyburide 5 mg tablet 10 mg (2 x 5 mg) PO TID #540 tabs 05/10/23 12/06/23 12/05/23 Rx diphenoxylate-atropine 2.5 1 tab PO BID PRN diarrhea #30 tabs 07/19/23 12/06/23 Unknown Rx mg-0.025 mg tablet (Lomotil) chlorthalidone 25 mg tablet 25 mg PO DAILY #90 tabs 08/28/23 12/06/23 12/05/23 Rx hydralazine 50 mg tablet 50 mg PO TID #90 tabs 08/28/23 12/06/23 12/05/23 Rx loperamide 2 mg tablet (Imodium 2 mg PO Q6H PRN loose stool #30 10/30/23 12/06/23 12/05/23 Rx A-D) tabs metformin 1,000 mg tablet 1,000 mg PO BID #180 tabs 11/02/23 12/06/23 12/05/23 Rx amlodipine 10 mg tablet 10 mg PO DAILY 12/06/23 12/06/23 12/05/23 History cholecalciferol (vitamin D3) 25 50 mcg PO DAILY 12/06/23 12/06/23 12/05/23 History mcg (1,000 unit) tablet (Vitamin D3) Allergies Allergy/AdvReac Type Severity Reaction Status Date / Time hydrocodone Allergy Severe confusion Verified 12/06/23 07:06 amoxicillin Allergy unknown Verified 12/06/23 07:06 codeine Allergy unknown Verified 12/06/23 07:06 PFSH Acute 2 PFSH: Medical History BPH w urinary obs/LUTS Colon polyp Radiation proctitis Membranous urethral stricture Overflow incontinence Incomplete bladder emptying Recurrent UTI History of prostate cancer Type 2 diabetes mellitus Hypertension Surgical History S/P right hemicolectomy (10/20/21) Status post colonoscopy with polypectomy (06/09/21) Previous back surgery Family History Mother , 66 Cancer Uterine Father , 74 Cancer prostate Social History Smoking and tobacco/nicotine status: never used tobacco/nicotine Quit status (tobacco/nicotine): has quit using Year quit tobacco: 1981 Alcohol intake: never Marital status: Current occupational status: retired Vitals/I&O/Wt Last Vital Signs Temp 94.5 F L 12/06/23 09:36 Pulse 68 12/06/23 09:36 Resp 14 12/06/23 06:49 BP 156/60 12/06/23 09:36 Pulse Ox 97 12/06/23 09:36 O2 Del Method Room Air 12/06/23 09:36 12/05/23 12/06/23 12/06/23 22:59 06:59 14:59 Intake Total 250 / 250 Balance 250 / 250 Weight last 48 hrs Weight 87.997 kg Physical Exam 2 Narrative: General exam is a white male, no distress, conversant and pleasant. Current vitals are blood pressure of 156/60, heart rate of 68, respiratory rate of 14, and a temperature of 94.5. A Allie hugger is in place. From my understanding his initial heart rate was in the upper 40s. I do not believe he has been hypotensive. There is been no recorded elevation in temperature. HEENT atraumatic and normocephalic. Oropharynx clear Neck is supple no lymphadenopathy thyromegaly Cardiovascular regular rate and rhythm without murmur Lungs clear Abdomen is soft with positive bowel sounds. No obvious organomegaly exams deferred Extremities no sinus clubbing edema, cap refill brisk Skin no rash Neuro no obvious focal deficits Sepsis: Is patient septic: Yes Focused sepsis exam performed: Yes Date exam was performed: 12/06/23 Time exam was performed: 10:30 Data 12/06/23 07:37 12/06/23 07:37 Other Labs: Liver function test normal, albumin 3.3, calcium 8.4. Lactate 1.7 Urinalysis with 55-80 whites, 5-10 reds Chest x-ray no obvious infiltrate. I reviewed this as well. Some atherosclerosis is noted. Urine and blood cultures have now been obtained EKG has been ordered A&P Assessment and plan (1) Sepsis: Patient presents with evidence of sepsis without septic shock He has a focus of a UTI, with acute encephalopathy, acute kidney injury, hypothermia, leukocytosis His lactate is not elevated He received 2 L of fluid according to the emergency department physician initially. His blood pressure is now high and he is perfusing adequately. At this point we will continue IV fluids at 125 cc an hour and monitor blood pressure and heart rate I do not believe that he got blood cultures prior to antibiotics. They have now been ordered. Will await culture results. Urine culture has been obtained as well. (2) Hypothermia: Patient with significant hypothermia, secondary to above Continue to warm patient Continue to monitor (3) Acute kidney injury: Patient with acute kidney injury. Baseline creatinine 0.9. He is 1.5 currently. Monitor urine output closely. Avoid renal toxic medication Hold diuretics (4) Hypoglycemia: Patient significantly hypoglycemic in the field. He has been having some issues with this lately. It can certainly happen with sepsis. Could certainly happen with acute kidney injury. He is also on long-acting insulin, glyburide. Hold his diabetic medication currently. He is currently on an infusion of D10. Will taper this off, follow blood sugars closely, and reinstitute if any hypoglycemia occurs. (5) Acute encephalopathy: Patient with acute encephalopathy this morning secondary to sepsis and/or hypoglycemia. He is now back to baseline. (6) UTI (urinary tract infection): Patient with apparent UTI Secondary to sepsis, some microscopic hematuria check CT renal protocol to rule out obstruction and/or stone He does not have a history of resistant UTI according to the patient. He is placed on Rocephin initially. Await cultures Plan Anemia. Will check anemia panel, stool Hemoccult. Placed on Protonix empirically. Multiple other medical problems as outlined in past medical history Limited code. No CPR. Other therapies okay. Lovenox for DVT prophylaxis Attestations 2 Medical Necessity Statement*: Will require greater than 2 midnight stay secondary to sepsis with evidence of endorgan dysfunction, currently going to the ICU. Diagnoses Sepsis A41.9 Hypothermia T68.XXXA Acute kidney injury N17.9 Hypoglycemia E16.2 Acute encephalopathy G93.40 UTI (urinary tract infection) N39.0 Time Spent (min) 53
[2023-12-06 11:21] LABS: Glucose Point of Care 130 mg/dL (70-110)
--- NOTE | 2023-12-06 11:29 | ECG_ITS ---
[facility] Test Date: 2023-12-06 Pat Name: Jorge Nolasco Department: Room: Gender: Male Appraiser: : 1940 Requested By: Raj Amos Order Number: [id number] Raimundo MD: Jean Paul Maya M.D. Measurements Intervals [place] Rate: 62 P: 59 AR: 199 QRS: -65 QRSD: 86 T: 46 QT: 423 QTc: 431 Interpretive Statements SINUS RHYTHM LEFT ANTERIOR FASCICULAR BLOCK [QRS AXIS <= -45, QR IN I, RS IN II] No previous ECG available for comparison Electronically Signed On 12-06-2023 15:58:28 CDT by Jean Paul Maya M.D. [id number]
[2023-12-06 11:47] LABS: Folate Level 17.6 ng/mL (4.5-32.2)
[2023-12-06 11:50] LABS: Ferritin 13 ng/mL (30-400); Iron 33 ug/dL (59-158); Percent Saturation 12.5 % (20-50); Thyroid Stimulating Hormone 1.61 uIU/mL (0.27-4.20); Total Iron Binding Capacity 264 mcg/dl; Unsaturated Iron Binding 231 ug/dL (112-347); Vitamin B12 917 pg/mL (232-1245)
[2023-12-06 13:26] LABS: Glucose Point of Care 111 mg/dL (70-110)
[2023-12-06] MEDS: iron sucrose 200 MG in sodium chloride 0.9% (100 ml) 100 ML 220 MG IV (14:28)
[2023-12-06] MEDS: sodium chloride 0.9% 1,000 ML 125 ML IV (14:39)
[2023-12-06] MEDS: carvedilol 12.5 mg Tablet PO (16:40)
--- NOTE | 2023-12-06 16:43 | PC.NURSE ---
Receivied patient from ER staff at 1245. HR: 64, BP: 177/78, Temp: 98.1, SPo2: 95% on room air. BLood sugar is 111. Patient is alert and oriented to person, place, time, and situation.
--- NOTE | 2023-12-06 16:45 | PC.NURSE ---
Patient continues to by hypertensive. Blood pressure 194/77. Verified manually. Nurse alerted Dr nguyễn and received order to give the coreg scheduled for 1800 early.
[2023-12-06 17:48] LABS: Glucose Point of Care 289 mg/dL (70-110)
[2023-12-06 17:48] LABS: Glucose Point of Care 118 mg/dL (70-110)
[2023-12-06] MEDS: insulin lispro 100 unit/1 mL SUBCUT ×2 (17:51→21:21)
[2023-12-06] MEDS: tamsulosin 0.4 mg Capsule PO (17:51)
--- NOTE | 2023-12-06 18:15 | PC.NURSE ---
Shift Summary: uneventful shift. Patient was up to a chair for a few hours, standby assist. Started on sliding scale. Coreg given early due to hypertension.
[2023-12-06] MEDS: enoxaparin 40 mg/0.4 mL Syringe SUBCUT (19:27)
[2023-12-06] MEDS: amlodipine 10 mg Tablet PO (22:01)
[2023-12-06 23:48] LABS: Glucose Point of Care 292 mg/dL (70-110)
[2023-12-07] VITALS (10 sets, daily range): BP systolic 155–185; BP diastolic 61–69; PULSE 63–81; RESP 15–18; TEMP 36.6–37.1; O2SAT 91–95
[2023-12-07] MEDS: sodium chloride 0.9% 1,000 ML 75 ML IV (03:02)
[2023-12-07 03:07] LABS: Glucose Point of Care 71 mg/dL (70-110)
--- NOTE | 2023-12-07 03:23 | PC.NURSE ---
pt c/o feeling his blood sugar is low, checked 72, peanut butter, crackers and oj given
[2023-12-07 05:06] LABS: Basophils # 0.1 10^3/uL (0.0-0.1); Basophils % 0.5 %; Eosinophils # 0.2 10^3/uL (0.0-0.8); Eosinophils % 1.6 %; Hematocrit 31.2 % (37-53); Lymphocytes % 7.1 %; Mean Corpuscular HGB Conc 30.1 g/dL (30-55); Mean Corpuscular Hemoglobin 26.3 pg (27-33); Mean Corpuscular Volume 87.4 fl (82-101); Monocytes % 7.5 %; Neutrophils # 11.37 10^3/uL (1.8-7.7); Neutrophils % 82.8 %; Nucleated Red Blood Cells % 0 %; Platelet Count 245 10^3/cmm (157-399); Red Blood Count 3.57 10^6/uL (3.85-5.65); Red Cell Distribution Width 14.6 % (12.1-15.1); White Blood Count 13.74 10^3/uL (3.29-11.43)
[2023-12-07 05:28] LABS: Alanine Aminotransferase 14 U/L (0-41); Alkaline Phosphatase 76 U/L (40-130); Anion Gap 14.8 (5-19); Aspartate Amino Transferase 13 U/L (0-40); Blood Urea Nitrogen 33 mg/dL (8-23); Carbon Dioxide 20 mmol/L (22-29); Chloride 108 mmol/L (98-107); Creatinine Clr Calc Pharmacy 41.1693; Globulin 2.7 g/dL (1.3-4.6); Glucose 208 mg/dL (65-115); Osmolality Calculated 299 mOsm/kg (285-295); Potassium 4.8 mmol/L (3.5-5.1); Sodium 138 mmol/L (136-145); Total Bilirubin 0.3 mg/dL (0.15-1.2); Total Protein 5.7 g/dL (6.6-8.7)
[2023-12-07 06:47] LABS: Glucose Point of Care 235 mg/dL (70-110)
--- NOTE | 2023-12-07 08:18 | P.PN_ITS ---
Subjective 2 Subjective: Jorge reports he is doing okay. No significant hypoglycemia last night. Lowest blood sugar 71. No fever. Feels a little bit better. Medications: Reviewed: Yes Vitals/I&O/Wt Last Vital Signs Temp 98.4 F 12/07/23 07:22 Pulse 79 12/07/23 07:22 Resp 16 12/07/23 07:22 BP 184/63 12/07/23 07:22 Pulse Ox 91 12/07/23 07:22 O2 Del Method Room Air 12/07/23 07:22 12/06/23 12/07/23 12/07/23 22:59 06:59 14:59 Intake Total 3016.25 / 3266.25 580 / 3846.25 240 / 240 Output Total 600 / 600 Balance 2416.25 / 2666.25 580 / 3246.25 240 / 240 Weight last 48 hrs Weight 88.995 kg Weight 86.409 kg Weight 87.997 kg Physical Exam 2 Narrative: General exam is a white male, no distress Neck is supple no lymphadenopathy thyromegaly Cardiovascular regular rate and rhythm without murmur Lungs clear Abdomen is soft with positive bowel sounds. No obvious organomegaly Extremities no sinus clubbing edema, cap refill brisk Data 12/07/23 04:44 12/07/23 04:44 Micro: Microbiology 12/06/23 16:20 Occult Blood (FIT) - Final Stool - Stool Aspirate 12/06/23 11:34 Blood Culture - Preliminary Blood SPECIMEN COLLECTED 12/06/23 11:39 Blood Culture - Preliminary Blood SPECIMEN COLLECTED A&P Assessment and plan (1) Sepsis: Patient presents with evidence of sepsis without septic shock He has a focus of a UTI, with acute encephalopathy, acute kidney injury, hypothermia, leukocytosis His lactate is not elevated No hypotension Await urine and blood culture Continue IV antibiotic of ceftriaxone. Improved/resolved but needing culture prior to discharge home. White blood cell count is still elevated. (2) Hypothermia: Patient with significant hypothermia, secondary to above Now resolved (3) Acute kidney injury: Patient with acute kidney injury. Baseline creatinine 0.9. He is 1.5 currently. Monitor urine output closely. Avoid renal toxic medication Hold diuretics Has not yet improved, continue to monitor (4) Hypoglycemia: Patient significantly hypoglycemic in the field. He has been having some issues with this lately. It can certainly happen with sepsis. Could certainly happen with acute kidney injury. He is also on long-acting insulin, glyburide. Hold his diabetic medication currently. D10 has been able to be tapered off. Placed on a mild sliding scale insulin. Continue to monitor sugars today to determine medications at discharge. He will likely need a low dose of a long-acting insulin, discontinuation of his glyburide, continuation of his metformin but will determine this after blood sugars today. (5) Acute encephalopathy: Patient with acute encephalopathy this morning secondary to sepsis and/or hypoglycemia. He is now back to baseline. (6) UTI (urinary tract infection): Patient with apparent UTI Secondary to sepsis, some microscopic hematuria check CT renal protocol to rule out obstruction and/or stone. This demonstrated some mild dilation of the right renal pelvis, but no evidence of obstruction from stone. This is similar to previous CTs. Consider urology follow-up. Continue Rocephin, await cultures Plan Anemia. Will check anemia panel, stool Hemoccult. Placed on Protonix empirically. Stool is Hemoccult positive. Hemoglobin stable. Outpatient follow-up indicated. He is iron deficient. Transfusion of iron given yesterday. Repeat again today. Hypertension. Blood pressure has increased. Home blood pressure medications have been restarted. Multiple other medical problems as outlined in past medical history Limited code. No CPR. Other therapies okay. Lovenox for DVT prophylaxis Attestations 2 Medical Necessity Statement*: Needs continued hospitalization for urine culture results prior to discharge in this patient with sepsis on presentation. Still with kidney injury. Improved but not ready to go home. Diagnoses Sepsis A41.9 Hypothermia T68.XXXA Acute kidney injury N17.9 Hypoglycemia E16.2 Acute encephalopathy G93.40 UTI (urinary tract infection) N39.0 Time Spent (min) 21
[2023-12-07] MEDS: iron sucrose 200 MG in sodium chloride 0.9% (100 ml) 100 ML 220 MG IV (08:52)
[2023-12-07] MEDS: insulin lispro 100 unit/1 mL SUBCUT ×4 (08:52→21:32)
[2023-12-07] MEDS: tamsulosin 0.4 mg Capsule PO ×2 (08:53→18:17)
[2023-12-07] MEDS: carvedilol 12.5 mg Tablet PO ×2 (08:53→18:17)
[2023-12-07] MEDS: pantoprazole DR 40 mg Tablet PO (08:53)
[2023-12-07] MEDS: amlodipine 10 mg Tablet PO (08:53)
[2023-12-07] MEDS: hyDRALAzine 50 mg Tablet PO ×3 (08:53→20:59)
--- NOTE | 2023-12-07 09:35 | PC.CHAP ---
Pastoral Care Encounter/Spiritual Assessment Type of Contact [] Declined risk consulting treasury director visit [] Patient/Family/Request visit [] Outpatient visit [] Follow-up visit [] Physician referral [] Code/Alert [x] Routine visit [] Staff referral [] Actively dying [] Patient sleeping [x] Family support [] [] Out of room [] Palliative care [] [] Receiving care in room [] Pre-surgical visit [] Trauma [] Long length of stay [] ICU visit [] Other: Relational/Emotional Strength [x] Patient feels connected with others/family/visitors/staff [] Distress [] Loneliness/isolation [] Abandonment Spirituality of Patient [x] Person of Belen [] Attends Jainism of their Belen [x] Believes in Prayer [] Reads Bible or Gnosticist materials [] There are Spiritual issues to be addressed Bezel Cutter Interventions [x] Prayer [x] Active listening [] Non-anxious presence [x] Spiritual/emotional support [] Crisis/trauma care [] Spiritual counseling [] Bereavement support [] Provided bereavement packet [] Provided Bible/devotional materials [] Provided toy/stuffed animal, coloring book to patient or family member [] Provided Communion [] Anointing/[place] [] Salvation [x] Completed spiritual assessment [] Other: Impact on Illness or Injury [] Angry [] Fearful [] Anxious [] Often cries [] Exhaustion [] Unable to work [] Unable to attend adventist [] Unable to walk/stand [] Unable to read [] Unable to drive [] Unable to eat/drink [] Unable to sleep [] Unable to be with family [] Patient intubated [] Other: Summary Time spent with patient 5 min
[2023-12-07] MEDS: cefTRIAXone 2,000 mg SDV 2000 MG IVP (09:39)
[2023-12-07 09:57] LABS: Glucose Point of Care 122 mg/dL (70-110)
[2023-12-07 11:10] LABS: Glucose Point of Care 327 mg/dL (70-110)
[2023-12-07 17:25] LABS: Glucose Point of Care 175 mg/dL (70-110)
[2023-12-07] MEDS: enoxaparin 40 mg/0.4 mL Syringe SUBCUT (18:17)
[2023-12-07 21:14] LABS: Glucose Point of Care 285 mg/dL (70-110)
[2023-12-07] MEDS: hyDRALAzine 20 mg/mL INJ 1 mL 5 MG IVP (23:58)
[2023-12-08 00:45] VITALS: BP 169/72
[2023-12-08 04:00] VITALS: BP 158/58; PULSE 72; RESP 17; TEMP 36.6; O2SAT 92
[2023-12-08 05:27] LABS: Basophils # 0.1 10^3/uL (0.0-0.1); Basophils % 0.8 %; Eosinophils # 0.2 10^3/uL (0.0-0.8); Eosinophils % 2.1 %; Hematocrit 30.6 % (37-53); Lymphocytes # 1.5 10^3/uL (0.8-4.8); Lymphocytes % 14.4 %; Mean Corpuscular HGB Conc 29.4 g/dL (30-55); Mean Corpuscular Hemoglobin 26.1 pg (27-33); Mean Corpuscular Volume 88.7 fl (82-101); Mean Platelet Volume 9.2 fL (7.4-10.4); Monocytes # 1.6 10^3/uL (0.2-0.9); Monocytes % 15.2 %; Neutrophils # 6.85 10^3/uL (1.8-7.7); Neutrophils % 66.8 %; Nucleated Red Blood Cells % 0 %; Platelet Count 201 10^3/cmm (157-399); Red Blood Count 3.45 10^6/uL (3.85-5.65); White Blood Count 10.24 10^3/uL (3.29-11.43)
[2023-12-08 05:45] VITALS: PULSE 74
[2023-12-08 05:46] LABS: Blood Urea Nitrogen 31 mg/dL (8-23); Calcium 8.3 mg/dL (8.5-10.5); Carbon Dioxide 18 mmol/L (22-29); Chloride 108 mmol/L (98-107); Creatinine Clr Calc Pharmacy 41.1693; Glucose 174 mg/dL (65-115); Osmolality Calculated 297 mOsm/kg (285-295); Sodium 138 mmol/L (136-145)
[2023-12-08 07:31] VITALS: BP 189/68; PULSE 74; RESP 16; TEMP 36.8; O2SAT 94
[2023-12-08 08:23] LABS: Glucose Point of Care 191 mg/dL (70-110)
[2023-12-08] MEDS: insulin lispro 100 unit/1 mL SUBCUT (08:46)
[2023-12-08] MEDS: cefTRIAXone 2,000 mg SDV 2000 MG IVP (08:47)
[2023-12-08] MEDS: tamsulosin 0.4 mg Capsule PO (08:47)
[2023-12-08] MEDS: lisinopril 20 mg Tablet 40 MG PO (08:47)
[2023-12-08] MEDS: hyDRALAzine 50 mg Tablet PO (08:47)
[2023-12-08] MEDS: pantoprazole DR 40 mg Tablet PO (08:47)
[2023-12-08] MEDS: carvedilol 12.5 mg Tablet 25 MG PO (08:47)
[2023-12-08] MEDS: amlodipine 10 mg Tablet PO (08:47)
[2023-12-08] MEDS: chlorthalidone 25 mg Tablet PO (08:47)
--- NOTE | 2023-12-08 08:53 | P.DS_ITS ---
Discharge Providers Date of Admission: 12/06/23 12:02 Date of Discharge: December 08, 2023 Attending Provider at Admission: Raj Ortega MD Attending Provider at Discharge: Raj Ortega MD Primary Care Provider: Aren Mosquera DO Diagnoses at Discharge Discharge Diagnosis (1) Sepsis: Status: Acute (2) Hypothermia: Status: Acute (3) Acute kidney injury: Status: Acute (4) Hypoglycemia: Status: Acute (5) Acute encephalopathy: Status: Acute (6) UTI (urinary tract infection): Status: Acute Reason for Visit Reason for Visit: hypoglycemia Hospital Course Hospital Course Jorge is an 83-year-old white male who presented to the hospital with hypoglycemia and confusion. There was also concern for UTI. He was placed on ceftriaxone. Sugar was increased with a continuous glucose infusion. His insulin and other diabetic medication was held. He was noted to be anemic, and on investigation iron deficient with Hemoccult positive stool. Hemoglobin was relatively stable in the hospital, and he received 2 iron transfusions. Hypoglycemia corrected with holding medication. He was placed on a mild sliding scale insulin. Urine culture ultimately grew many organisms, thought to be contaminated but secondary to his significant urinalysis he will be discharged on p.o. cefdinir. At discharge patient was stable, afebrile, with negative blood cultures. Blood sugars had not been low while in the hospital. He will be discharged on Lantus 10 units daily. His metformin dose was reduced to 500 mg twice daily. His NPH insulin was discontinued, along with his glyburide. I discussed with his his reduction in metformin to see if his longstanding diarrhea improved. I also stopped his hydrochlorothiazide as he already has chlorthalidone that he is taking. His Lantus will likely need to be increased slowly, to try to achieve a morning blood sugar between 100-180 initially without any hypoglycemia at night. I discussed with him his anemia, and potential need for further workup regarding this. They are going to discuss with his primary care provider. 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 He and his were able to ask questions and agreed with the plan. A short course of cefdinir was prescribed upon discharge. Please note patient has history of prostate cancer, and has not been following up with urology since his urologist left here. He has mild dilation of his right renal pelvis similar to CT in 2021. This could be followed up by urology. He also appears to have chronic kidney disease, discharge creatinine 1.5. Physical Exam Narrative: General exam no distress Neck is supple Cardiovascular regular rate and rhythm Lungs clear Abdomen soft Extremities no cyanosis clubbing or edema Discharge Data Studies Completed and Pending Completed Studies During Hospitalization Category Date Time Status CT abdomen renal stone [CT kidney stone [id number]] Stat Cat Scan 12/06/23 10:56 Completed XR chest 1V portable [id number] Stat Exams 12/06/23 06:56 Completed Pending at discharge Category Date Time Status Blood Culture Stat Lab 12/06/23 11:34 Results Radiology Impressions Chest X-Ray 12/06/23 06:56 IMPRESSION: No acute findings. Abdomen/Pelvis CT 12/06/23 10:56 IMPRESSION: 1. No renal or ureteral calcification. 2. Mild dilatation of the RIGHT renal pelvis. Similar findings were noted on the prior CT of 06/25/2021. There is no obstructing radiopaque calcification in the ureter. It may be worthwhile reevaluating the RIGHT renal pelvic dilatation and RIGHT ureter dilatation after patient's acute episode resolves. If the ureteral and renal pelvis dilatation persists it could be an obstructing uroepithelial neoplasm in the distal RIGHT ureter. 3. Small extrarenal pelvis on the LEFT with no obstruction. 4. Heterogeneous urinary bladder. 5. Very heterogeneous enlarged prostate with progression since 2021. Prostate now extends to the sidewalls of the pelvis with slightly greater encasement along the posterior urinary bladder. May be progression of patient's known p rostate carcinoma. 6. Anastomotic sutures in the mid transverse colon with no obstruction or mass. 7. Stable bilateral adrenal adenomas. 8. Moderate to large hiatal hernia. 9. Bibasilar pulmonary opacifications. Pneumonitis/developing pneumonia. Laboratory Results WBC 10.24 10^3/uL (3.29-11.43) 12/08/23 05:13 RBC 3.45 10^6/uL (3.85-5.65) L 12/08/23 05:13 Hgb 9.00 g/dL (11.27-16.99) L 12/08/23 05:13 Hct 30.6 % (37-53) L 12/08/23 05:13 MCV 88.7 fl (82-101) 12/08/23 05:13 MCH 26.1 pg (27-33) L 12/08/23 05:13 MCHC 29.4 g/dL (30-55) L 12/08/23 05:13 RDW 15.0 % (12.1-15.1) 12/08/23 05:13 Plt Count 201 10^3/cmm (157-399) 12/08/23 05:13 MPV 9.2 fL (7.4-10.4) 12/08/23 05:13 Neut % (Auto) 66.8 % 12/08/23 05:13 Lymph % (Auto) 14.4 % 12/08/23 05:13 [place] % (Auto) 15.2 % 12/08/23 05:13 Eos % (Auto) 2.1 % 12/08/23 05:13 Baso % (Auto) 0.8 % 12/08/23 05:13 Neut # (Auto) 6.85 10^3/uL (1.8-7.7) 12/08/23 05:13 Lymph # (Auto) 1.5 10^3/uL (0.8-4.8) 12/08/23 05:13 [place] # (Auto) 1.6 10^3/uL (0.2-0.9) H 12/08/23 05:13 Eos # (Auto) 0.2 10^3/uL (0.0-0.8) 12/08/23 05:13 Baso # (Auto) 0.1 10^3/uL (0.0-0.1) 12/08/23 05:13 Nucleated RBC % (auto) 0 % 12/08/23 05:13 Nucleated RBCs # 0.0 /100WBC 12/08/23 05:13 Sodium 138 mmol/L (136-145) 12/08/23 05:13 Potassium 4.0 mmol/L (3.5-5.1) 12/08/23 05:13 Chloride 108 mmol/L (98-107) H 12/08/23 05:13 Carbon Dioxide 18 mmol/L (22-29) L 12/08/23 05:13 Anion Gap 16.0 (5-19) 12/08/23 05:13 BUN 31 mg/dL (8-23) H 12/08/23 05:13 Creatinine 1.5 mg/dL (0.7-1.2) H 12/08/23 05:13 GFR Calculation Not Reportable 12/08/23 05:13 Glucose 174 mg/dL (65-115) H 12/08/23 05:13 POC Glucose 191 mg/dL (70-110) H 12/08/23 06:17 Calculated Osmolality 297 mOsm/kg (285-295) H 12/08/23 05:13 Lactic Acid 1.0 mmol/L (0.5-2.2) 12/06/23 11:39 Calcium 8.3 mg/dL (8.5-10.5) L 12/08/23 05:13 Magnesium 2.0 mg/dL (1.7-2.3) 12/07/23 04:44 Iron 33 ug/dL (59-158) L 12/06/23 07:37 TIBC 264 mcg/dl 12/06/23 07:37 % Saturation 12.5 % (20-50) L 12/06/23 07:37 Unsat Iron Binding 231 ug/dL (112-347) 12/06/23 07:37 Ferritin 13 ng/mL (30-400) L 12/06/23 07:37 Total Bilirubin 0.3 mg/dL (0.15-1.2) 12/07/23 04:44 AST 13 U/L (0-40) 12/07/23 04:44 ALT 14 U/L (0-41) 12/07/23 04:44 Alkaline Phosphatase 76 U/L (40-130) 12/07/23 04:44 C-Reactive Protein 3.0 mg/L (0.0-4.9) 12/06/23 07:37 Total Protein 5.7 g/dL (6.6-8.7) L 12/07/23 04:44 Albumin 3.0 g/dL (3.5-5.2) L 12/07/23 04:44 Globulin 2.7 g/dL (1.3-4.6) 12/07/23 04:44 Vitamin B12 917 pg/mL (232-1245) 12/06/23 07:37 Folate 17.6 ng/mL (4.5-32.2) 12/06/23 07:37 TSH 1.61 uIU/mL (0.27-4.20) 12/06/23 07:37 Urine Color Yellow (Yellow) 12/06/23 08:40 Urine Appearance Cloudy (CLEAR) A 12/06/23 08:40 Urine pH 6 (5-7) 12/06/23 08:40 Ur Specific [place] 1.010 (1.005-1.030) 12/06/23 08:40 Urine Protein Trace (Negative) 12/06/23 08:40 Urine Glucose (UA) Norm (Normal) 12/06/23 08:40 Urine Ketones Negative (Negative) 12/06/23 08:40 Urine Blood 2+ (Negative) H 12/06/23 08:40 Urine Nitrate Negative (Negative) 12/06/23 08:40 Urine Bilirubin Neg (Negative) 12/06/23 08:40 Urine Urobilinogen Norm mg/dL (Negative) 12/06/23 08:40 Ur Leukocyte Esterase 1+ (Negative) H 12/06/23 08:40 Urine RBC 5-10 /hpf (0-2) H 12/06/23 08:40 Urine WBC 55-80 /hpf (0-5) H 12/06/23 08:40 Ur Squamous Epith Cells 5-10 /hpf (0-5) H 12/06/23 08:40 Amorphous Sediment Trace /hpf 12/06/23 08:40 Urine Bacteria Trace /hpf (NONE) 12/06/23 08:40 Urine Mucus Trace /hpf 12/06/23 08:40 Vitals Last Vital Signs Temp 98.2 F 12/08/23 07:31 Pulse 74 12/08/23 07:31 Resp 16 12/08/23 07:31 BP 189/68 12/08/23 07:31 Pulse Ox 94 12/08/23 07:31 O2 Del Method Room Air 12/08/23 07:31 Discharge Plan Discharge Patient Disposition: Home Condition: Stable Prescriptions: New metformin 500 mg tablet 500 mg PO BID Qty: 60 0RF cefdinir 300 mg capsule 300 mg PO BID Qty: 10 0RF insulin glargine [Lantus Solostar U-100 Insulin] 100 unit/mL (3 mL) insulin pen 10 unit SUBCUT DAILY Qty: 15 0RF Continued multivitamin Tablet 1 tab PO DAILY ascorbic acid (vitamin C) 1,000 mg tablet 1 g PO BID Qty: 180 3RF magnesium hydroxide [Elder Milk of Magnesia] 400 mg/5 mL suspension 7.5 ml PO BID PRN (Reason: Constipation) calcium carbonate [Calcium 600] 600 mg calcium (1,500 mg) tablet 600 mg PO QAM ondansetron HCl 4 mg tablet 4 mg PO Q8H PRN (Reason: Nausea) diphenoxylate-atropine [Lomotil] 2.5-0.025 mg tablet 1 tab PO BID PRN (Reason: diarrhea) Qty: 30 0RF carvedilol 25 mg tablet 25 mg PO BID Qty: 180 3RF tamsulosin 0.4 mg capsule 0.4 mg PO BID Qty: 180 3RF lisinopril 40 mg tablet 40 mg PO DAILY Qty: 90 3RF (DME) OneTouch Ultra Test Strip See Rx Instructions .Route Qty: 200 3RF Rx Instructions: to test two times a day methenamine hippurate 1 gram tablet 1 g PO BID Qty: 240 3RF hydralazine 50 mg tablet 50 mg PO TID Qty: 90 3RF chlorthalidone 25 mg tablet 25 mg PO DAILY Qty: 90 3RF loperamide [Imodium A-D] 2 mg tablet 2 mg PO Q6H PRN (Reason: loose stool) Qty: 30 0RF Vitamin D3 25 mcg (1,000 unit) Tablet 50 mcg PO DAILY amlodipine 10 mg tablet 10 mg PO DAILY Discontinued hydrochlorothiazide 12.5 mg tablet 12.5 mg PO DAILY Qty: 90 3RF Novolin N FlexPen 100 unit/mL (3 mL) insulin pen See Rx Instructions SUBCUT .COMPLEX Qty: 15 11RF Rx Instructions: Take 26 units in am and 15 units in pm. metformin 1,000 mg tablet 1,000 mg PO BID Qty: 180 3RF glyburide 5 mg tablet 10 mg PO TID Qty: 540 3RF Discharge Orders: Discharge Order (Routine); Ordered 12/08/23 Ordered By: Raj Ortega Referrals: Aren Mosquera DO [Primary Care Provider] - 12/14/23 10:00 am (CBC and BMP on follow-up) Discharge Diet: Cardiac and Diabetic Discharge Activity: Increase activity as tolerated Patient Instructions: Opioid Safety Activity Restrictions/Additional Instructions: Take all medicine as prescribed. Discontinue glimepiride. Reduce metformin to 500 mg twice daily. Stop hydrochlorothiazide. Initiate Lantus 10 units once daily. This may need to be increased. Discontinue NPH insulin. your stool was heme positive, and you were anemic with iron deficiency. Follow- up with your primary care provider regarding possible investigation. 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 Return for any concerns Discharge Attestations Time Spent in Discharge Care*: greater than 30 min Quality Metrics Clinical Quality Measures [ No reported AMI, CVA or VTE this stay] Coding Level of Care Code 28224 Total time (in minutes) for Discharge: 42 Diagnoses Sepsis A41.9 Hypothermia T68.XXXA Acute kidney injury N17.9 Hypoglycemia E16.2 Acute encephalopathy G93.40 UTI (urinary tract infection) N39.0
[2023-12-08] MEDS: insulin glargine 100 units/1 mL 10 UNIT SUBCUT (09:04)
--- NOTE | 2023-12-08 09:42 | PC.SOCIAL ---
IMM Update pg 2 of IMM updated and reviewed w/ patient. Copy provided and copy dated, initialed and placed in chart.
[2023-12-08 10:00] VITALS: O2SAT 94
[2023-12-08] MEDS: acetaminophen 325 mg Tablet 650 MG PO (10:44)
[2023-12-08 12:59] VITALS: O2SAT 94
== END 2023-12-08 12:45 | disposition home or self-care (01) | DRG 871 ==
LOC: ER 09:35 → ICU 12:03 → MEDSURG 22:40
PROVIDERS: Admitting Provider Internal Medicine; Emergency Provider Emergency Medicine; PCP Family Medicine; Visit Provider Internal Medicine
DX: A41.9 Sepsis, unspecified organism (principal); G93.41 Metabolic encephalopathy; R65.21 Severe sepsis with septic shock; K90.829 Short bowel syndrome, unspecified; N39.0 Urinary tract infection, site not specified; N17.9 Acute kidney failure, unspecified; E11.649 Type 2 diabetes mellitus with hypoglycemia without coma; E11.22 Type 2 diabetes mellitus with diabetic chronic kidney disease; I12.9 Hypertensive chronic kidney disease with stage 1 through stage 4 chronic kidney disease, or unspecified chronic kidney disease; N18.9 Chronic kidney disease, unspecified; N40.1 Benign prostatic hyperplasia with lower urinary tract symptoms; R39.14 Feeling of incomplete bladder emptying; Z85.46 Personal history of malignant neoplasm of prostate; Z90.49 Acquired absence of other specified parts of digestive tract; R68.0 Hypothermia, not associated with low environmental temperature; Z87.440 Personal history of urinary (tract) infections; Z79.4 Long term (current) use of insulin; Z79.84 Long term (current) use of oral hypoglycemic drugs; Z87.891 Personal history of nicotine dependence; D50.9 Iron deficiency anemia, unspecified
CPT/HCPCS: 36415; 36416; 71045; 74176; 80048; 80053; 81001; 82274; 82607; 82728; 82746; 82962; 83540; 83550; 83605; 83735; 84443; 85025; 86140; 87040; 87086; 93005; 96372; 96374; 99285; J0360; J0696; J1650; J1756; J1815; J7030; J7040; J7799

== ENCOUNTER 2023-12-21 19:03 | Emergency (ER) | payer MEDICARE, OTHER, SELFPAY ==
[2023-12-21 19:13] VITALS: BP 224/74; PULSE 63; RESP 16; TEMP 36.4; O2SAT 92; BMI 25.5
[2023-12-21 19:30] LABS: Basophils # 0.1 10^3/uL (0.0-0.1); Basophils % 0.6 %; Eosinophils # 0.1 10^3/uL (0.0-0.8); Hematocrit 36.3 % (37-53); Lymphocytes # 0.9 10^3/uL (0.8-4.8); Lymphocytes % 11.1 %; Mean Corpuscular HGB Conc 30.3 g/dL (30-55); Mean Corpuscular Hemoglobin 26.8 pg (27-33); Mean Corpuscular Volume 88.3 fl (82-101); Mean Platelet Volume 9.4 fL (7.4-10.4); Monocytes # 0.5 10^3/uL (0.2-0.9); Monocytes % 6.6 %; Neutrophils % 80.2 %; Nucleated Red Blood Cells % 0 %; Platelet Count 199 10^3/cmm (157-399); Red Blood Count 4.11 10^6/uL (3.85-5.65); Red Cell Distribution Width 15.4 % (12.1-15.1); White Blood Count 7.74 10^3/uL (3.29-11.43)
[2023-12-21] MEDS: sodium chloride 0.9% 1,000 ML 999 ML IV (19:39)
[2023-12-21] MEDS: insulin regular-human 100 units/1 mL 10 UNIT IVP (19:41)
[2023-12-21] MEDS: hyDRALAzine 20 mg/mL INJ 1 mL IVP (19:42)
[2023-12-21 19:49] LABS: Ketone (Acetest) Serum Negative (Negative)
[2023-12-21 19:50] VITALS: BP 164/54; PULSE 64; RESP 23; O2SAT 95
[2023-12-21 19:52] LABS: Charge for UA Resulting for Rev
[2023-12-21 19:56] LABS: Bilirubin Urine Negative (Negative); Blood Urine Trace (Negative); Glucose Urine UA 3+ (Normal); Ketones Urine Negative (Negative); Leukocyte Esterase Urine Trace (Negative); Nitrate Urine Positive (Negative); Protein Urine 2+ (Negative); Specific Gravity, Urine 1.024 (1.005-1.030); Urine Appearance Clear (CLEAR); Urine Color Yellow (Yellow); Urobilinogen Urine 0.2 mg/dL (Negative)
[2023-12-21 19:57] LABS: Alanine Aminotransferase 14 U/L (0-41); Albumin Level 3.9 g/dL (3.5-5.2); Alkaline Phosphatase 130 U/L (40-130); Anion Gap 15.9 (5-19); Aspartate Amino Transferase 7 U/L (0-40); Blood Urea Nitrogen 39 mg/dL (8-23); Calcium 9.7 mg/dL (8.5-10.5); Carbon Dioxide 25 mmol/L (22-29); Chloride 98 mmol/L (98-107); Globulin 2.8 g/dL (1.3-4.6); Osmolality Calculated 318 mOsm/kg (285-295); Potassium 4.9 mmol/L (3.5-5.1); Sodium 134 mmol/L (136-145); Total Bilirubin 0.2 mg/dL (0.15-1.2); Total Protein 6.7 g/dL (6.6-8.7)
[2023-12-21 19:57] LABS: Glucose Point of Care > 600 mg/dL (70-110)
[2023-12-21 20:01] LABS: Glucose 648 mg/dL (65-115)
[2023-12-21 20:01] LABS: Bacteria Urine 1+ /hpf; Hyaline Casts Urine 0-4 /lpf; RBC Urine 0-2 /hpf (0-2); Squamous Epithelial Cell Urine 0-5 /hpf (0-5); WBC Urine 21-50 /hpf (0-5)
[2023-12-21 20:13] LABS: Add Urine Culture? Yes
--- NOTE | 2023-12-21 20:17 | ED_ITS ---
HPI - General Adult 2 General: Chief complaint: General Medical Stated complaint: BS is 600+ BP 218/80 confused Time Seen by Provider: 12/21/23 19:22 History of Present Illness: Patient presents to the ER with complaints of mild confusion and elevated blood sugar. When checked his blood sugar at home and just read high. Patient was recently inpatient here and diagnosed with a kidney infection and low blood sugar. During his stay he developed high blood sugar. Patient was placed on insulin that he said he is using. Review of Systems 2 General: Reports: 10 or more systems reviewed and unremarkable except in HPI and below PFSH ED 2 PFSH: Medical History BPH w urinary obs/LUTS Colon polyp Radiation proctitis Membranous urethral stricture Overflow incontinence Incomplete bladder emptying Recurrent UTI History of prostate cancer Type 2 diabetes mellitus Hypertension Surgical History S/P right hemicolectomy (10/20/21) Status post colonoscopy with polypectomy (06/09/21) Previous back surgery Family History Mother , 66 Cancer Uterine Father , 74 Cancer prostate Social History Smoking and tobacco/nicotine status: never used tobacco/nicotine Quit status (tobacco/nicotine): has quit using Year quit tobacco: 1981 Alcohol intake: never Marital status: Current occupational status: retired Physical Exam 2 Const: COMMON NORMALS: no acute distress, average body habitus, patient oriented x3, no limitations, healthy appearing, alert and well nourished HENMT: COMMON NORMALS: normocephalic, atraumatic, hearing grossly normal bilaterally, external ears normal, Normal external nose present and moist oral mucous membranes HEAD & SCALP: normocephalic and atraumatic NOSE: Normal external nose present EXTERNAL EAR: Yes external ears normal Eye: COMMON NORMALS: Equal, round and reactive pupils present, EOMs intact bilaterally, conjunctivae normal and no scleral icterus CONJUNCTIVA: Yes conjunctivae normal PUPIL: Yes Equal, round and reactive pupils present Neck/C-Spine: COMMON NORMALS: no JVD Chest: COMMONS NORMALS: normal inspection of the chest and normal palpation of entire chest wall Resp: COMMON NORMALS: normal respiratory effort, No retractions, No use of accessory muscles and clear to auscultation bilaterally AUSCULTATION: clear to auscultation bilaterally Cardio: COMMON NORMALS: no JVD, regular rate, regular rhythm, S1 normal heart sound present, S2 normal heart sound present, No gallops present (Cardio), No clicks present (Cardio), No murmurs present (Cardio) and No rub (Cardio) R ATE: regular rate RHYTHM: regular rhythm HEART SOUNDS: S1 normal heart sound present and S2 normal heart sound present GI: COMMON NORMALS: Normal to inspection, nondistended, normoactive bowel sounds present, Soft to palpation, non-tender, No hepatosplenomegaly present and no masses PALPATION: Yes Soft to palpation and Yes No hepatosplenomegaly present Neuro: COMMON NORMALS: patient oriented x3 SENSORIUM/ORIENTATION: Yes alert Course 2 Vital Signs: Vital signs: Vital Signs Temperature 97.5 F L 12/21/23 19:13 Pulse Rate 55 L 12/21/23 21:11 Respiratory Rate 18 12/21/23 21:11 Blood Pressure 143/50 12/21/23 21:11 Pulse Oximetry 94 12/21/23 21:11 Oxygen Delivery Me thod Room Air 12/21/23 19:50 MDM - General Adult Medical Decision Making Upon arrival patient's blood sugar was greater than 600, by fingerstick by blood draw was 648, patient was given 10 units of IV insulin is rechecked serially eventually go down to 323 approximately. Patient was given 20 mg hydralazine IV and his blood pressure decreased from 224/74 to approximately 143/50.. Otherwise lab work was pretty benign ketones negative, acute chronic kidney disease with creatinine 1.7, urinalysis still showed positive nitrates leukocyte Estrace and 21-50 white blood cells, looking back in old urine culture Staph epidermidis was sensitive to Macrobid. Patient was given 1 Macrobid here and will be discharged home on Macrobid. Differential Diagnosis Hyperglycemia, urinary tract infection Medical Records I reviewed the patient's medical records. Lab Data I reviewed the patient's lab results. 12/21/23 19:20 12/21/23 19:20 Laboratory Results WBC 7.74 10^3/uL (3.29-11.43) 12/21/23 19:20 RBC 4.11 10^6/uL (3.85-5.65) 12/21/23 19:20 Hgb 11.00 g/dL (11.27-16.99) L 12/21/23 19:20 Hct 36.3 % (37-53) L 12/21/23 19:20 MCV 88.3 fl (82-101) 12/21/23 19:20 MCH 26.8 pg (27-33) L 12/21/23 19:20 MCHC 30.3 g/dL (30-55) 12/21/23 19:20 RDW 15.4 % (12.1-15.1) H 12/21/23 19:20 Plt Count 199 10^3/cmm (157-399) 12/21/23 19:20 MPV 9.4 fL (7.4-10.4) 12/21/23 19:20 Neut % (Auto) 80.2 % 12/21/23 19:20 Lymph % (Auto) 11.1 % 12/21/23 19:20 [place] % (Auto) 6.6 % 12/21/23 19:20 Eos % (Auto) 1.0 % 12/21/23 19:20 Baso % (Auto) 0.6 % 12/21/23 19:20 Neut # (Auto) 6.20 10^3/uL (1.8-7.7) 12/21/23 19:20 Lymph # (Auto) 0.9 10^3/uL (0.8-4.8) 12/21/23 19:20 [place] # (Auto) 0.5 10^3/uL (0.2-0.9) 12/21/23 19:20 Eos # (Auto) 0.1 10^3/uL (0.0-0.8) 12/21/23 19:20 Baso # (Auto) 0.1 10^3/uL (0.0-0.1) 12/21/23 19:20 Nucleated RBC % (auto) 0 % 12/21/23 19:20 Nucleated RBCs # 0.0 /100WBC 12/21/23 19:20 Sodium 134 mmol/L (136-145) L 12/21/23 19:20 Potassium 4.9 mmol/L (3.5-5.1) 12/21/23 19:20 Chloride 98 mmol/L (98-107) 12/21/23 19:20 Carbon Dioxide 25 mmol/L (22-29) 12/21/23 19:20 Anion Gap 15.9 (5-19) 12/21/23 19:20 BUN 39 mg/dL (8-23) H 12/21/23 19:20 Creatinine 1.7 mg/dL (0.7-1.2) H 12/21/23 19:20 GFR Calculation Not Reportable 12/21/23 19:20 Glucose 648 mg/dL (65-115) H* 12/21/23 19:20 POC Glucose 323 mg/dL (70-110) H 12/21/23 21:28 Calculated Osmolality 318 mOsm/kg (285-295) H 12/21/23 19:20 Calcium 9.7 mg/dL (8.5-10.5) 12/21/23 19:20 Total Bilirubin 0.2 mg/dL (0.15-1.2) 12/21/23 19:20 AST 7 U/L (0-40) 12/21/23 19:20 ALT 14 U/L (0-41) 12/21/23 19:20 Alkaline Phosphatase 130 U/L (40-130) 12/21/23 19:20 Total Protein 6.7 g/dL (6.6-8.7) 12/21/23 19:20 Albumin 3.9 g/dL (3.5-5.2) 12/21/23 19:20 Globulin 2.8 g/dL (1.3-4.6) 12/21/23 19:20 Urine Color Yellow (Yellow) 12/21/23 19:40 Urine Appearance Clear (CLEAR) 12/21/23 19:40 Urine pH 6.0 (5-7) 12/21/23 19:40 Ur Specific [place] 1.024 (1.005-1.030) 12/21/23 19:40 Urine Protein 2+ (Negative) A 12/21/23 19:40 Urine Glucose (UA) 3+ (Normal) H 12/21/23 19:40 Urine Ketones Negative (Negative) 12/21/23 19:40 Urine Blood Trace (Negative) A 12/21/23 19:40 Urine Nitrate Positive (Negative) A 12/21/23 19:40 Urine Bilirubin Negative (Negative) 12/21/23 19:40 Urine Urobilinogen 0.2 mg/dL (Negative) 12/21/23 19:40 Ur Leukocyte Esterase Trace (Negative) A 12/21/23 19:40 Urine RBC 0-2 /hpf (0-2) 12/21/23 19:40 Urine WBC 21-50 /hpf (0-5) H 12/21/23 19:40 Ur Squamous Epith Cells 0-5 /hpf (0-5) 12/21/23 19:40 Amorphous Sediment Not Reportable 12/21/23 19:40 Urine Bacteria 1+ /hpf (NONE) H 12/21/23 19:40 Hyaline Casts 0-4 /lpf H 12/21/23 19:40 Serum Ketones Negative (Negative) 12/21/23 19:20 All radiology interpretation(s) finalized by discharge Discharge Plan Discharge Patient Disposition: Home Clinical Impression: Hypertension, Urinary tract infection, Hyperglycemia due to type 2 diabetes mellitus Condition: Stable Prescriptions: New Macrobid 100 mg capsule 100 mg PO BID 7 Days Qty: 14 0RF Rx Instructions: must administer with a meal/food Discontinued cefdinir 300 mg capsule 300 mg PO BID Qty: 10 0RF No Action multivitamin Tablet 1 tab PO DAILY ascorbic acid (vitamin C) 1,000 mg tablet 1 g PO BID Qty: 180 3RF magnesium hydroxide [Elder Milk of Magnesia] 400 mg/5 mL suspension 7.5 ml PO BID PRN (Reason: Constipation) calcium carbonate [Calcium 600] 600 mg calcium (1,500 mg) tablet 600 mg PO QAM ondansetron HCl 4 mg tablet 4 mg PO Q8H PRN (Reason: Nausea) diphenoxylate-atropine [Lomotil] 2.5-0.025 mg tablet 1 tab PO BID PRN (Reason: diarrhea) Qty: 30 0RF carvedilol 25 mg tablet 25 mg PO BID Qty: 180 3RF tamsulosin 0.4 mg capsule 0.4 mg PO BID Qty: 180 3RF lisinopril 40 mg tablet 40 mg PO DAILY Qty: 90 3RF (DME) OneTouch Ultra Test Strip See Rx Instructions .Route Qty: 200 3RF Rx Instructions: to test two times a day methenamine hippurate 1 gram tablet 1 g PO BID Qty: 240 3RF hydralazine 50 mg tablet 50 mg PO TID Qty: 90 3RF chlorthalidone 25 mg tablet 25 mg PO DAILY Qty: 90 3RF loperamide [Imodium A-D] 2 mg tablet 2 mg PO Q6H PRN (Reason: loose stool) Qty: 30 0RF amlodipine 10 mg tablet See Rx Instructions .ROUTE .COMPLEX Qty: 90 3RF Dose Instruction: Take 1 tablet by mouth once daily Rx Instructions: Take 1 tablet by mouth once daily Vitamin D3 25 mcg (1,000 unit) Tablet 50 mcg PO DAILY metformin 500 mg tablet 500 mg PO BID Qty: 60 0RF Lantus Solostar U-100 Insulin 100 unit/mL (3 mL) insulin pen 10 unit SUBCUT DAILY Qty: 15 0RF Discharge Orders: Discharge ED (Routine); Ordered 12/21/23 Ordered By: Sridhar Westbrook Referrals: Aren Mosquera, [Primary Care Provider] - 1 week Activity Restrictions/Additional Instructions: You are given additional doses of insulin as well as fluid here in the ER and your blood sugar has improved. It is still high so continue to monitor it as you may need to take more insulin. Your urinalysis showed you still have a urinary tract infection. You will have been changed to a different antibiotic based on the culture and sensitivity of a prior urinalysis. Take all your antibiotics as directed. Please follow-up with your family practice physician within the next 7 to 10 days for further evaluation and treatment. Please keep a blood pressure log and take it to the appointment. Coding Level of Care Code ED [employer] for Eva Garcia
[2023-12-21 20:34] VITALS: BP 143/49; PULSE 57; RESP 18; O2SAT 95
[2023-12-21 20:37] LABS: Glucose Point of Care 404 mg/dL (70-110)
[2023-12-21] MEDS: nitrofurantoin SR (BID) 100 mg Capsule PO (20:41)
[2023-12-21 21:11] VITALS: BP 143/50; PULSE 55; RESP 18; O2SAT 94
[2023-12-21 21:33] LABS: Glucose Point of Care 323 mg/dL (70-110)
[2023-12-21 21:35] VITALS: BP 158/50; PULSE 57; RESP 20; O2SAT 94
[2023-12-21 22:04] VITALS: BP 164/55; PULSE 56; RESP 20; O2SAT 94
== END 2023-12-21 22:07 | disposition home or self-care (01) ==
PROVIDERS: Emergency Provider Emergency Medicine; PCP Family Medicine
DX: I10 Essential (primary) hypertension (principal); N39.0 Urinary tract infection, site not specified; E11.65 Type 2 diabetes mellitus with hyperglycemia; Z79.4 Long term (current) use of insulin; Z79.84 Long term (current) use of oral hypoglycemic drugs; Z87.891 Personal history of nicotine dependence; Z85.46 Personal history of malignant neoplasm of prostate
CPT/HCPCS: 36416; 80053; 81003; 81015; 82009; 82962; 85025; 87086; 96361; 96374; 96375; 99284; J0360; J1815; J7030

== ENCOUNTER 2023-12-27 06:27 | Emergency (ER) | payer MEDICARE, OTHER, SELFPAY ==
[2023-12-27 06:36] VITALS: BP 194/82; PULSE 63; RESP 18; TEMP 36.7; O2SAT 98; BMI 25.5
[2023-12-27 06:42] LABS: Glucose Point of Care 236 mg/dL (70-110)
[2023-12-27 07:05] VITALS: BP 194/82; PULSE 57; O2SAT 97
[2023-12-27 07:22] LABS: Ketone (Acetest) Serum Negative (Negative)
--- NOTE | 2023-12-27 07:28 | ED_ITS ---
HPI - General Adult 2 General: Chief complaint: General Medical Stated complaint: diabetic ran out of insulin Time Seen by Provider: 12/27/23 06:33 History of Present Illness: 83-year-old male presents to the emergen cy room states he has run out of his insulin. He was discharged home from a hospital recently and he was started on Lantus was called into the local pharmacy it was going to be $130 per month [id number] he was not able to afford that so he has not had any today. He did have insulin through yesterday but ran out today was the first morning he is not have any available to take it. His blood sugar on Accu-Chek when he first arrived was 236. He was monitored while he was here did increase slightly. He has not had any fever sweats chills no nausea vomiting or diarrhea is any dysuria urgency or frequency no polyuria polydipsia. Associated symptoms: Deny chest pain, dyspnea or rash Related Data Home Medications Medication Instructions Recorded Confirmed multivitamin 1 tab PO DAILY 12/16/20 12/21/23 magnesium hydroxide 400 mg/5 mL 7.5 ml PO BID PRN Constipation 04/21/21 12/21/23 oral suspension (Xfire Milk of Magnesia) calcium carbonate (Calcium 600) 600 mg PO QAM 05/24/21 12/21/23 ondansetron HCl 4 mg tablet 4 mg PO Q8H PRN Nausea 11/30/21 12/21/23 cholecalciferol (vitamin D3) 25 50 mcg PO DAILY 12/06/23 12/21/23 mcg (1,000 unit) tablet (Vitamin D3) Previous Rx's Medication Instructions Recorded ascorbic acid (vitamin C) 1,000 mg 1 g PO BID #180 tabs 12/17/20 tablet carvedilol 25 mg tablet 25 mg PO BID #180 tabs 11/18/22 tamsulosin 0.4 mg capsule 0.4 mg PO BID #180 caps 11/18/22 lisinopril 40 mg tablet 40 mg PO DAILY #90 tabs 12/29/22 blood sugar diagnostic (OneTouch #200 ea 01/18/23 Ultra Test strips) methenamine hippurate 1 gram tablet 1 g PO BID #240 tabs 01/18/23 diphenoxylate-atropine 2.5 1 tab PO BID PRN diarrhea #30 tabs 07/19/23 mg-0.025 mg tablet (Lomotil) chlorthalidone 25 mg tablet 25 mg PO DAILY #90 tabs 08/28/23 hydralazine 50 mg tablet 50 mg PO TID #90 tabs 08/28/23 loperamide 2 mg tablet (Imodium 2 mg PO Q6H PRN loose stool #30 10/30/23 A-D) tabs insulin glargine 100 unit/mL (3 10 unit (0.1 mL) SUBCUT DAILY #15 12/08/23 mL) subcutaneous pen (Lantus mL Solostar U-100 Insulin) metformin 500 mg tablet 500 mg PO BID #60 tabs 12/08/23 amlodipine 10 mg tablet See Rx Instructions .Route 12/13/23 .COMPLEX #90 tabs nitrofurantoin 100 mg PO BID 7 days #14 caps 12/21/23 monohydrate/macrocrystals 100 mg capsule (Macrobid) cefdinir 300 mg capsule 300 mg PO BID 10 days #20 caps 12/27/23 insulin glargine 100 unit/mL (3 10 unit (0.1 mL) SUBCUT DAILY #15 12/27/23 mL) subcutaneous pen (Lantus mL Solostar U-100 Insulin) Allergies Allergy/AdvReac Type Severity Reaction Status Date / Time hydrocodone Allergy Severe confusion Verified 12/27/23 06:42 amoxicillin Allergy unknown Verified 12/27/23 06:42 codeine Allergy unknown Verified 12/27/23 06:42 Review of Systems 2 Const: Denies: fever(s) or chills Card: Denies: chest pain Resp: Denies: dyspnea GI: Denies: abdominal pain : Denies: dysuria, urinary frequency or urinary urgency Musc: Denies: neck pain or back pain Skin/Breast: Denies: rash PFSH ED 2 PFSH: Medical History BPH w urinary obs/LUTS Colon polyp Radiation proctitis Membranous urethral stricture Overflow incontinence Incomplete bladder emptying Recurrent UTI History of prostate cancer Type 2 diabetes mellitus Hypertension Surgical History S/P right hemicolectomy (10/20/21) Status post colonoscopy with polypectomy (06/09/21) Previous back surgery Family History Mother , 66 Cancer Uterine Father , 74 Cancer prostate Social History Smoking and tobacco/nicotine status: never used tobacco/nicotine Quit status (tobacco/nicotine): has quit using Year quit tobacco: 1981 Alcohol intake: never Marital status: Current occupational status: retired Physical Exam 2 Const: COMMON NORMALS: no acute distress GENERAL APPEARANCE: cooperative and comfortable ORIENTATION/CONSCIOUSNESS: Yes awake, Yes oriented to person, Yes oriented to place and Yes oriented to time HENMT: COMMON NORMALS: normocephalic, atraumatic and hearing grossly normal bilaterally HEAD & SCALP: normocephalic and atraumatic Resp: COMMON NORMALS: normal respiratory effort, No retractions, No use of accessory muscles and clear to auscultation bilaterally AUSCULTATION: clear to auscultation bilaterally Cardio: COMMON NORMALS: regular rate, regular rhythm and No murmurs present (Cardio) RATE: regular rate RHYTHM: regular rhythm GI: COMMON NORMALS: Soft to palpation and No hepatosplenomegaly present A USCULTATION: Yes normoactive bowel sounds PALPATION: Yes Soft to palpation, No Tenderness to palpation present (GI), No Guarding due to palpation present (GI) and Yes No hepatosplenomegaly present Extremity: COMMON NORMALS: normal to inspection, capillary refill normal, no clubbing, cyanosis or edema, no calf tenderness and no pedal edema Neuro: SENSORIUM/ORIENTATION: Yes oriented to person, Yes oriented to place and Yes oriented to time Skin: COMMON NORMALS: no rashes or lesions noted GENERAL SKIN EXAM: no rashes or lesions noted Course 2 Vital Signs: Vital signs: Vital Signs Temperature 98.0 F 12/27/23 06:36 Pulse Rate 71 12/27/23 10:36 Respiratory Rate 18 12/27/23 06:36 Blood Pressure 173/89 12/27/23 10:36 Pulse Oximetry 97 12/27/23 07:05 Oxygen Delivery Me thod Room Air 12/27/23 06:36 MDM - General Adult Medical Decision Making Labs and imaging reviewed no leukocytosis incidental finding of cystitis. Will discharge patient home on oral antibiotic she recently had a cystitis was on Macrobid which is bacteriostatic and think was adequate to treat his infection given his diabetes put him on cefdinir at this time await culture results. We contacted the [facility] pharmacy on the 3 40B program he can get the insulin around $30 per month it is a better deal for him according to the pharmacist if using insulin pens. Called in the antibiotic as well as the insulin pens recommend he follow-up with his primary care doctor as soon as he is able to review blood sugar logs and adjust as appropriate. Medical Records I reviewed the patient's medical records. Lab Data I reviewed the patient's lab results. 12/27/23 07:00 12/27/23 07:00 Laboratory Results WBC 7.66 10^3/uL (3.29-11.43) 12/27/23 07:00 RBC 3.79 10^6/uL (3.85-5.65) L 12/27/23 07:00 Hgb 10.20 g/dL (11.27-16.99) L 12/27/23 07:00 Hct 33.2 % (37-53) L 12/27/23 07:00 MCV 87.6 fl (82-101) 12/27/23 07:00 MCH 26.9 pg (27-33) L 12/27/23 07:00 MCHC 30.7 g/dL (30-55) 12/27/23 07:00 RDW 15.6 % (12.1-15.1) H 12/27/23 07:00 Plt Count 198 10^3/cmm (157-399) 12/27/23 07:00 MPV 9.2 fL (7.4-10.4) 12/27/23 07:00 Neut % (Auto) 63.1 % 12/27/23 07:00 Lymph % (Auto) 19.7 % 12/27/23 07:00 [place] % (Auto) 12.1 % 12/27/23 07:00 Eos % (Auto) 3.7 % 12/27/23 07:00 Baso % (Auto) 0.9 % 12/27/23 07:00 Neut # (Auto) 4.83 10^3/uL (1.8-7.7) 12/27/23 07:00 Lymph # (Auto) 1.5 10^3/uL (0.8-4.8) 12/27/23 07:00 [place] # (Auto) 0.9 10^3/uL (0.2-0.9) 12/27/23 07:00 Eos # (Auto) 0.3 10^3/uL (0.0-0.8) 12/27/23 07:00 Baso # (Auto) 0.1 10^3/uL (0.0-0.1) 12/27/23 07:00 Nucleated RBC % (auto) 0 % 12/27/23 07:00 Nucleated RBCs # 0.0 /100WBC 12/27/23 07:00 Sodium 136 mmol/L (136-145) 12/27/23 07:00 Potassium 4.1 mmol/L (3.5-5.1) 12/27/23 07:00 Chloride 104 mmol/L (98-107) 12/27/23 07:00 Carbon Dioxide 22 mmol/L (22-29) 12/27/23 07:00 Anion Gap 14.1 (5-19) 12/27/23 07:00 BUN 64 mg/dL (8-23) H 12/27/23 07:00 Creatinine 2.4 mg/dL (0.7-1.2) H 12/27/23 07:00 GFR Calculation Not Reportable 12/27/23 07:00 Glucose 287 mg/dL (65-115) H 12/27/23 07:00 POC Glucose 244 mg/dL (70-110) H 12/27/23 08:57 Calculated Osmolality 311 mOsm/kg (285-295) H 12/27/23 07:00 Calcium 8.8 mg/dL (8.5-10.5) 12/27/23 07:00 Urine Color Yellow (Yellow) 12/27/23 09:05 Urine Appearance Clear (CLEAR) 12/27/23 09:05 Urine pH 5.5 (5-7) 12/27/23 09:05 Ur Specific [place] 1.013 (1.005-1.030) 12/27/23 09:05 Urine Protein 1+ (Negative) A 12/27/23 09:05 Urine Glucose (UA) Negative (Normal) 12/27/23 09:05 Urine Ketones Negative (Negative) 12/27/23 09:05 Urine Blood 1+ (Negative) A 12/27/23 09:05 Urine Nitrate Negative (Negative) 12/27/23 09:05 Urine Bilirubin Negative (Negative) 12/27/23 09:05 Urine Urobilinogen 0.2 mg/dL (Negative) 12/27/23 09:05 Ur Leukocyte Esterase 2+ (Negative) A 12/27/23 09:05 Urine RBC 6-10 /hpf (0-2) 12/27/23 09:05 Urine WBC 51-100 /hpf (0-5) H 12/27/23 09:05 Ur Squamous Epith Cells 0-5 /hpf (0-5) 12/27/23 09:05 Amorphous Sediment Not Reportable 12/27/23 09:05 Urine Bacteria None seen /hpf (NONE) 12/27/23 09:05 Hyaline Casts 0.40 /lpf 12/27/23 09:05 Serum Ketones Negative (Negative) 12/27/23 07:00 All radiology interpretation(s) finalized by discharge Discharge Plan Discharge Patient Disposition: Home Clinical Impression: Cystitis Hyperglycemia due to type 2 diabetes mellitus Qualifiers: Diabetes mellitus senior living insulin use: unspecified senior living insulin use status Qualified Code(s): E11.65 - Type 2 diabetes mellitus with hyperglycemia Condition: Stable Prescriptions: New cefdinir 300 mg capsule 300 mg PO BID 10 Days Qty: 20 0RF Lantus Solostar U-100 Insulin 100 unit/mL (3 mL) insulin pen 10 unit SUBCUT DAILY Qty: 15 0RF No Action multivitamin Tablet 1 tab PO DAILY ascorbic acid (vitamin C) 1,000 mg tablet 1 g PO BID Qty: 180 3RF magnesium hydroxide [Elder Milk of Magnesia] 400 mg/5 mL suspension 7.5 ml PO BID PRN (Reason: Constipation) calcium carbonate [Calcium 600] 600 mg calcium (1,500 mg) tablet 600 mg PO QAM ondansetron HCl 4 mg tablet 4 mg PO Q8H PRN (Reason: Nausea) diphenoxylate-atropine [Lomotil] 2.5-0.025 mg tablet 1 tab PO BID PRN (Reason: diarrhea) Qty: 30 0RF carvedilol 25 mg tablet 25 mg PO BID Qty: 180 3RF tamsulosin 0.4 mg capsule 0.4 mg PO BID Qty: 180 3RF lisinopril 40 mg tablet 40 mg PO DAILY Qty: 90 3RF (DME) OneTouch Ultra Test Strip See Rx Instructions .Route Qty: 200 3RF Rx Instructions: to test two times a day methenamine hippurate 1 gram tablet 1 g PO BID Qty: 240 3RF hydralazine 50 mg tablet 50 mg PO TID Qty: 90 3RF chlorthalidone 25 mg tablet 25 mg PO DAILY Qty: 90 3RF loperamide [Imodium A-D] 2 mg tablet 2 mg PO Q6H PRN (Reason: loose stool) Qty: 30 0RF amlodipine 10 mg tablet See Rx Instructions .ROUTE .COMPLEX Qty: 90 3RF Dose Instruction: Take 1 tablet by mouth once daily Rx Instructions: Take 1 tablet by mouth once daily Vitamin D3 25 mcg (1,000 unit) Tablet 50 mcg PO DAILY metformin 500 mg tablet 500 mg PO BID Qty: 60 0RF Lantus Solostar U-100 Insulin 100 unit/mL (3 mL) insulin pen 10 unit SUBCUT DAILY Qty: 15 0RF Macrobid 100 mg capsule 100 mg PO BID 7 Days Qty: 14 0RF Rx Instructions: must administer with a meal/food Discharge Orders: Discharge ED (Routine); Ordered 12/27/23 Ordered By: Lacho Hernandes Referrals: Aren Mosquera DO [Primary Care Provider] - Discharge Diet: Diabetic Discharge Activity: Resume usual activity Patient Instructions: Opioid Safety, Pain Management Activity Restrictions/Additional Instructions: Thank you for choosing [facility] for your healthcare needs today. It is very important that you follow up as instructed or that you return to the Emergency Department should you have concerns or if your condition changes or worsens in any way. You were seen today for your blood sugars. We reviewed filled your Lantus and resent it to the pharmacy at [address] [place] [address]. They have a program there it will be substantially cheaper than what you had experienced at the other pharmacy. Your doctor can send refills to one of the [facility] pharmacies to continue to use that benefit. Additionally you were noted to have a bladder infection that has persisted the urine has been cultured we sent in a different antibiotic cefdinir 1 pill twice a day for 10 days. Follow-up to review your blood sugars with your primary care physician Coding Level of Care Code ED Administrative Assistant Coordinator for Eva Garcia
[2023-12-27 07:29] LABS: Anion Gap 14.1 (5-19); Blood Urea Nitrogen 64 mg/dL (8-23); Calcium 8.8 mg/dL (8.5-10.5); Carbon Dioxide 22 mmol/L (22-29); Chloride 104 mmol/L (98-107); Creatinine Clr Calc Pharmacy 24.6606; Glucose 287 mg/dL (65-115); Osmolality Calculated 311 mOsm/kg (285-295); Potassium 4.1 mmol/L (3.5-5.1); Sodium 136 mmol/L (136-145)
[2023-12-27 07:44] LABS: Basophils # 0.1 10^3/uL (0.0-0.1); Basophils % 0.9 %; Eosinophils # 0.3 10^3/uL (0.0-0.8); Eosinophils % 3.7 %; Hematocrit 33.2 % (37-53); Lymphocytes # 1.5 10^3/uL (0.8-4.8); Lymphocytes % 19.7 %; Mean Corpuscular HGB Conc 30.7 g/dL (30-55); Mean Corpuscular Hemoglobin 26.9 pg (27-33); Mean Corpuscular Volume 87.6 fl (82-101); Mean Platelet Volume 9.2 fL (7.4-10.4); Monocytes # 0.9 10^3/uL (0.2-0.9); Monocytes % 12.1 %; Neutrophils # 4.83 10^3/uL (1.8-7.7); Neutrophils % 63.1 %; Nucleated Red Blood Cells % 0 %; Platelet Count 198 10^3/cmm (157-399); Red Blood Count 3.79 10^6/uL (3.85-5.65); Red Cell Distribution Width 15.6 % (12.1-15.1); White Blood Count 7.66 10^3/uL (3.29-11.43)
[2023-12-27] MEDS: sodium chloride 0.9% 1,000 ML 999 ML IV (07:51)
--- NOTE | 2023-12-27 07:51 | PC.NURSE ---
@0750: Glucose via fingerstick: 246
[2023-12-27 07:53] LABS: Glucose Point of Care 246 mg/dL (70-110)
[2023-12-27] MEDS: insulin glargine 100 units/1 mL 10 UNIT SUBCUT (08:09)
[2023-12-27 08:59] LABS: Glucose Point of Care 244 mg/dL (70-110)
--- NOTE | 2023-12-27 09:07 | PC.NURSE ---
@0900: Glucose via fingerstick: 244
[2023-12-27 09:15] LABS: Charge for UA Resulting for Rev
[2023-12-27 09:20] LABS: Bilirubin Urine Negative (Negative); Blood Urine 1+ (Negative); Glucose Urine UA Negative (Normal); Ketones Urine Negative (Negative); Leukocyte Esterase Urine 2+ (Negative); Nitrate Urine Negative (Negative); Protein Urine 1+ (Negative); Specific Gravity, Urine 1.013 (1.005-1.030); Urine Appearance Clear (CLEAR); Urine Color Yellow (Yellow); Urobilinogen Urine 0.2 mg/dL (Negative); pH Urine 5.5 (5-7)
[2023-12-27 09:23] LABS: Bacteria Urine None Seen /hpf; Squamous Epithelial Cell Urine 0-5 /hpf (0-5); WBC Urine 51-100 /hpf (0-5)
[2023-12-27 09:29] LABS: Add Urine Culture? Yes
[2023-12-27 10:00] VITALS: BP 173/89; PULSE 71
[2023-12-27 10:36] VITALS: BP 173/89; PULSE 71
== END 2023-12-27 10:37 | disposition home or self-care (01) ==
PROVIDERS: Emergency Provider Family Medicine; PCP Family Medicine
DX: E11.65 Type 2 diabetes mellitus with hyperglycemia (principal); N30.90 Cystitis, unspecified without hematuria; Z79.84 Long term (current) use of oral hypoglycemic drugs; Z79.4 Long term (current) use of insulin; Z87.891 Personal history of nicotine dependence; I10 Essential (primary) hypertension; Z85.46 Personal history of malignant neoplasm of prostate
CPT/HCPCS: 36415; 36416; 80048; 81003; 81015; 82009; 82962; 85025; 87086; 96372; 99284; J1815; J7030

== ENCOUNTER → 2024-01-11 10:08 | Outpatient (BNVA) | payer MEDICARE, OTHER, SELFPAY | PROVIDERS: PCP Family Medicine; Visit Provider Family Medicine | DX: N39.0 Urinary tract infection, site not specified (principal) | CPT/HCPCS: 81000 ==

== ENCOUNTER → 2024-04-15 08:55 | Outpatient (BNVA) | payer MEDICARE, OTHER, SELFPAY | PROVIDERS: PCP Family Medicine; Visit Provider Nurse Practitioner Family | DX: E11.9 Type 2 diabetes mellitus without complications (principal) | CPT/HCPCS: 80053; 83036; 85025 ==

== ENCOUNTER → 2024-07-30 14:00 | Outpatient (BNVA) | payer MEDICARE, OTHER, SELFPAY | PROVIDERS: PCP Nurse Practitioner Family; Visit Provider Nurse Practitioner Family | DX: E11.9 Type 2 diabetes mellitus without complications (principal) | CPT/HCPCS: 83036 ==

== ENCOUNTER → 2024-08-28 09:15 | Outpatient (BNVA) | payer MEDICARE, OTHER, SELFPAY | PROVIDERS: PCP Nurse Practitioner Family; Visit Provider Nurse Practitioner Family | DX: I10 Essential (primary) hypertension (principal) | CPT/HCPCS: 80053; 80061; 85025 ==

== ENCOUNTER → 2024-12-11 12:00 | Outpatient (BNVA) | payer MEDICARE, OTHER, SELFPAY | PROVIDERS: PCP Nurse Practitioner Family; Visit Provider Nurse Practitioner Family | DX: E11.9 Type 2 diabetes mellitus without complications (principal) | CPT/HCPCS: 83036 ==